=== PATIENT | male | born 1940 | race Caucasian/White ===

== ENCOUNTER 2016-10-15 10:12 | Inpatient (IN) | payer OTHER ==
[2016-10-15 11:27] VITALS: BMI 23.2
[2016-10-15] MEDS ORDERED: VISTARIL INJ IM PRN (12:16)
[2016-10-15] MEDS ORDERED: NITROSTAT SL PRN (12:16)
[2016-10-15] MEDS ORDERED: ATROPINE SULFATE PFS IVP PRN (12:16)
[2016-10-15] MEDS ORDERED: MORPHINE 4 MG/ML SYRINGE IVP PRN (12:16)
[2016-10-15] MEDS ORDERED: TYLENOL PO PRN (12:16)
[2016-10-15 12:59] LABS: BASOPHILS % (AUTO) 0.6 % (0.0-3.0); EOSINOPHILS # (AUTO) 0.1 K/ul (0.0-0.7); EOSINOPHILS % (AUTO) 2.5 % (0.0-7.0); HEMATOCRIT 35.3 % (42.0-52.0); HEMOGLOBIN 12.9 g/dl (14.0-18.0); IMMATURE GRANULOCYTE % (AUTO) 0.2 % (0.0-5.0); LYMPHOCYTES # (AUTO) 2.2 K/uL (0.60-3.4); LYMPHOCYTES % (AUTO) 46.3 (10.0-50.0); MEAN CORPUSCULAR HEMOGLOBIN 32.3 pg (27.0-31.0); MEAN CORPUSCULAR HGB CONC 36.5 (31.8-35.4); MEAN CORPUSCULAR VOLUME 88.5 fl (80.0-94.0); MONOCYTES # (AUTO) 0.6 K/uL (0.4-2.0); MONOCYTES % (AUTO) 12.2 (0-10); NEUTROPHILS # (AUTO) 1.9 K/ul (2.0-6.9); NEUTROPHILS % (AUTO) 38.2; PLATELET COUNT 229 10^3/uL (140-440); RED BLOOD COUNT 3.99 10^6/ul (4.70-6.10); WHITE BLOOD COUNT 4.84 K/ul (4.2-10.2)
[2016-10-15 13:34] LABS: ALANINE AMINOTRANSFERASE 25 U/L (12-78); ALBUMIN 3.9 g/dL (3.4-5.0); ALBUMIN/GLOBULIN RATIO 1.56; ALKALINE PHOSPHATASE 59 U/L (56-119); ANION GAP 10.9; ASPARTATE AMINO TRANSFERASE 26 U/L (15-37); BILIRUBIN,TOTAL 0.82 mg/dL (0.00-1.20); BLOOD UREA NITROGEN 9 mg/dL (7-18); BUN/CREATININE RATIO 10.71; CALCIUM 8.9 mg/dL (8.2-10.2); CARBON DIOXIDE 28 mmol/L (23-31); CHLORIDE 102 mmol/L (98-107); CREATINE KINASE 82 U/L; CREATININE 0.84 mg/dL (0.60-1.10); GLUCOSE 83 mg/dL (82-115); MYOGLOBIN 55 ng/ml; POTASSIUM 3.9 mmol/L (3.5-5.1); SODIUM 137 mmol/L (136-145); TOTAL PROTEIN 6.4 g/dL (5.8-8.1)
[2016-10-15 14:52] LABS: ADD URINE MICROSCOPIC NO; BILIRUBIN,URINE Negative (NEGATIVE); KETONES,URINE Negative (NEGATIVE); LEUKOCYTE ESTERASE ,URINE Negative (NEGATIVE); NITRITE,URINE Negative (NEGATIVE); PROTEIN,URINE Negative (NEGATIVE); URINE, BLOOD Negative (NEGATIVE)
--- NOTE | 2016-10-15 15:47 | DI ---
EXAM: Chest one view, frontal view only. HISTORY: Shortness of breath. COMPARISON: 02/26/2016. FINDINGS: The heart size is normal. There is no vascular congestion. Mild peribronchial thickenin g is a chronic finding. No consolidation, pleural effusion or pneumothorax identified.. A few line ar opacities are seen in the lateral left lung base which are new. Clips seen in the right upper ab domen. No acute osseous abnormality identified. IMPRESSION: Mild left basilar subsegmental atelectasis.
--- NOTE | 2016-10-15 15:52 | US ---
EXAM: ULTRASOUND CAROTID DUPLEX, BILATERAL HISTORY: Dizziness, fatigue and weakness FINDINGS: Wheat-scale ultrasound, color Doppler and spectral analysis was performed. Velocities are in meters per second. By wheat scale and color Doppler imaging. There were small areas of scattered heterogeneous atherosc lerotic plaque estimated at much less than 50% vessel diameter. RIGHT: External carotid artery peak systolic velocity: 0.9 Common carotid artery peak systolic velocity/end diastolic velocity: 0.9/0.1 Internal carotid artery peak systolic velocity: 1.2 ICA/CCA peak systolic velocity ratio: 1.4 ICA end diastolic velocity: 0.3 LEFT: External carotid artery peak systolic velocity: 0.8 Common carotid artery peak systolic velocity/end diastolic velocity: 1.1/0.2 Internal carotid artery peak systolic velocity: 1.1 ICA/CCA peak systolic velocity ratio: 1.0 ICA end diastolic velocity: 0.3 The right vertebral artery was not seen. The left vertebral artery was normally antegrade. IMPRESSION: 1. By wheat scale and color Doppler imaging. There were small areas of scattered heterogeneous athe rosclerotic plaque estimated at much less than 50% vessel diameter. 2. Internal carotid artery peak systolic velocities and ICA/CCA peak systolic velocity ratios indic ate no hemodynamically significant stenosis bilaterally. 3. Right vertebral artery is not seen which may be secondary to technical difficulty, small vessel c aliber or conceivably occlusion. Left vertebral artery was normally antegrade.
[2016-10-15] MEDS: PROTONIX PO SCH (16:48)
--- NOTE | 2016-10-15 16:55 | MRI ---
EXAM: MRI brain without and with IV contrast. DATE: 10/15/2016. HISTORY: Fatigue. TECHNIQUE: Sagittal T1W pre and postcontrast, axial T2W, axial FLAIR, axial T1W pre and postcontras t, axial DWI, coronal T1W postcontrast, and coronal T2W GRE sequences of the brain were obtained [facility] 1.2 Kirstin magnet. CONTRAST: Omniscan - 16 ml IV. COMPARISON: CT head 29 February 2016. MRI brain 07 February 2016. FINDINGS: The lateral ventricles, temporal tips, and third ventricle appear disproportionally large . The third ventricle measures 13 mm transverse dimension. Transverse dimension across both latera l ventricles is 4.6 cm. Sylvian fissures and most frontal lobe and parietal sulci are mildly enlarg ed. most temporal lobe and occipital lobe sulci are normal or slightly prominent. No midline shift , mass effect or abnormal extra-axial fluid collection is apparent. No acute infarct, hemorrhage or enhancing neoplasm is identified. A few 1 - 2 mm, T2W/FLAIR bright foci are scattered in the subco rtical white matter bilaterally. A 3 mm diameter, FLAIR bright focus with questionable minimal cent ral enhancement is noted in the right frontal kwok radiata on axial image #15. The mena - white m atter differentiation is normal. Small areas of T2W GRE dark signal within each basal ganglia are b enign. No migration or diverticulation abnormality is identified. The amygdala, hippocampus, and p arahippocampal gyri are similar bilaterally. The 7th/8th cranial nerve complexes, cerebellopontine a ngles, brainstem, and visible cervical spinal cord are normal. There is no cerebellar tonsillar ect opia. The pituitary gland is small in size, with CSF filling most of the pituitary fossa. Corpus c allosum is normal in size, but the body is mildly bowed upward due to ventricular prominence. Left vertebral artery is dominant. Right vertebral artery is diminutive in size and poorly visualized. Flow voids are present in the remaining major intracranial arteries. No aneurysm or AVM is detected . No definitive dural venous sinus thrombosis is evident. No orbit abnormality is identified. A f ew inferior mastoid air cells bilaterally have T2W bright, T1W intermediate signal without abnormal enhancement. There is no acute sinusitis. No neck mass or lymphadenopathy is detected. No calvari al neoplasm or acute fracture is evident. IMPRESSIONS: 1. A right frontal kwok radiata 3 mm FLAIR bright focus with questionable minimal enhancement. S hort interval follow-up (2 months) may be helpful to exclude a growing lesion. 2. Central > peripheral cerebral atrophy. In the right clinical setting, chronic hydrocephalus moses ht be considered. 3. No acute infarct or acute hemorrhage. 4. Minor, benign basal ganglia mineral deposition. 5. Small pituitary gland - nearly empty sella. 6. Minor bilateral mastoid disease (chronic).
[2016-10-15] MEDS ORDERED: PROTONIX PO SCH (17:00)
[2016-10-15 20:36] LABS: CREATINE KINASE 77 U/L; MYOGLOBIN 53 ng/ml
[2016-10-15] MEDS ORDERED: NAMENDA PO SCH (21:00)
[2016-10-16] MEDS: PROTONIX PO SCH ×2 (05:47→16:52)
[2016-10-16] MEDS: FERROUS SULFATE PO SCH (08:28)
[2016-10-16] MEDS: CALCIUM 500 + VIT D 200 MG TABLET PO SCH (08:30)
[2016-10-16] MEDS: ZOCOR PO SCH (08:30)
[2016-10-16] MEDS: ARICEPT PO SCH (08:30)
[2016-10-16] MEDS: MULTIVITAMIN PO SCH (08:30)
[2016-10-16] MEDS: ASPIRIN EC PO SCH (08:31)
[2016-10-16] MEDS: NAMENDA PO SCH ×2 (08:56→20:31)
[2016-10-16] MEDS ORDERED: LEXAPRO PO SCH ×2 (09:00)
[2016-10-16] MEDS ORDERED: FERROUS SULFATE PO SCH (09:00)
[2016-10-16] MEDS ORDERED: ARICEPT PO SCH (09:00)
[2016-10-16] MEDS ORDERED: ZOCOR PO SCH (09:00)
[2016-10-16] MEDS ORDERED: CALCIUM 500 + VIT D 200 MG TABLET PO SCH (09:00)
[2016-10-16] MEDS ORDERED: NAMENDA PO SCH (09:00)
[2016-10-16] MEDS ORDERED: NON-FORMULARY MEDICATION (Simvastatin [Zocor] 20 MG) PO SCH ×22 (09:00)
[2016-10-16] MEDS ORDERED: MULTIVITAMIN PO SCH (09:00)
[2016-10-16] MEDS ORDERED: FERROUS SULFATE 65 MG PO SCH (09:00)
[2016-10-16] MEDS ORDERED: NON-FORMULARY MEDICATION (Escitalopram Oxalate [Lexapro] 5 MG) PO SCH (09:00)
[2016-10-17 05:36] VITALS: BP 106/65; TEMP 97
[2016-10-17] MEDS: PROTONIX PO SCH (05:36)
[2016-10-17] MEDS: CALCIUM 500 + VIT D 200 MG TABLET PO SCH (08:38)
[2016-10-17] MEDS: MULTIVITAMIN PO SCH (08:38)
[2016-10-17] MEDS: FERROUS SULFATE PO SCH (08:38)
[2016-10-17] MEDS: ASPIRIN EC PO SCH (08:39)
[2016-10-17] MEDS: ARICEPT PO SCH (08:39)
[2016-10-17] MEDS: ZOCOR PO SCH (08:39)
[2016-10-17] MEDS: NAMENDA PO SCH (08:39)
[2016-10-17] MEDS ORDERED: MEGACE PO SCH (09:00)
[2016-10-17] MEDS ORDERED: LEXAPRO PO SCH (09:00)
--- NOTE | 2016-10-17 12:24 | CM.DICTOOL ---
ADMISSION: 10/15/16 10:12 DISCHARGE: October 17, 2016 DATE OF SERVICE: 10/17/16 FINAL DIAGNOSIS Shortness of breath Fatigue Anemia COPD Alzheimer's Dementia r/o NPH Mild Aortic Stenosis per echocardiogram Hiatal Hernia GERD Depression Osteoarthritis DJD Spine Dyslipidemia Cholecystectomy LAST VITALS Temp Pulse Resp BP Pulse Ox 97.0 F L 57 L 16 106/65 96 10/17/16 05:35 10/17/16 05:35 10/17/16 05:35 10/17/16 05:35 10/17/16 05:35 ACTIVE HOME MEDICATIONS Calcium/Vitamin D (Calcium 500 + Vit D 200 Mg Tablet) 1 each PO DAILY [facility] Last Admin: 10/17/16 08:38 Dose: 1 each Donepezil HCl (Aricept) 10 mg PO DAILY [facility] Last Admin: 10/17/16 08:39 Dose: 10 mg Escitalopram Oxalate (Lexapro) 10 mg PO DAILY [facility] (dose increased) Last Admin: 10/17/16 08:38 Dose: 10 mg Ferrous Sulfate (Ferrous Sulfate) 324 mg PO DAILY [facility] Last Admin: 10/17/16 08:38 Dose: 324 mg Memantine (Namenda) 10 mg PO BID [facility] (dose increased) Last Admin: 10/17/16 08:39 Dose: 10 mg Multivitamins (Multivitamin) 1 cap PO DAILY [facility] Last Admin: 10/17/16 08:38 Dose: 1 cap Pantoprazole Sodium (Protonix) 40 mg PO BIDAC [facility] Last Admin: 10/17/16 05:36 Dose: 40 mg Simvastatin (Zocor) 20 mg PO DAILY [facility] Last Admin: 10/17/16 08:39 Dose: 20 mg ALLERGIES Penicillins Adverse Reaction (Verified 02/26/16 10:51) NEW PRESCRIPTIONS: Megace 400 mg daily Lexapro 10 mg daily Namenda 10 mg BID SMOKING: Not Applicable DISEASE SPECIFIC EDUCATION: Alzheimer's Dementia Medications Appetite Stimulant Appointment LAB REVIEW: 10/15/16 12:45 10/15/16 12:45 PLAN: Discharge home Diet: Heart Healthy Activity: Gradually resume as tolerated. Use cane or walker for additional safety Medication change: 1. Increase Lexapro to 10 mg daily (new prescription given) Appointments: October 21 at 9:[address] Pearson December 29 at [address] Jose Verdin in [place], [place]. A hospital CD with the MRI from 2015 and 2016 was given to the . Mr. Ott is alert to person, place and surroundings. He is forgetful at times. He is able to transfer with minimal assistance of one staff member. He is able to feed himself, toilet and ambulate with use of a walker or cane in the hallway. His skin is in good condition and free of open areas or rashes. Meal intakes are fair at 50-75%. Mr. Ott is noted to be a full code. Mayito Pearson MD
--- NOTE | 2016-10-17 12:38 | PCM.PROG ---
Attending Provider: ATTENDING PROVIDER: Dr. VICKIE AWAN DATE OF SERVICE: 10/17/16 SUBJECTIVE: This 76 year old WHITE/ M was hospitalized 10/15/16. The patient is hospitalized with fatigue, shortness of breath and worsening of dementia. The is present in the room. REVIEW OF SYSTEMS: CONSTITUTIONAL: No night sweats. No fatigue, malaise, lethargy. No fever or chills. HEENT: Eyes: No visual changes. No eye pain. No eye discharge. ENT: No runny nose. No epistaxis. No sinus pain. No odynophagia. No congestion. RESPIRATORY: No cough, no congestion. No hemoptysis. No PND, no orthopnea. CARDIOVASCULAR: No angina symptoms. No CHF symptoms. No atypical chest pain for CAD. No palpitations. No shortness of breath. GASTROINTESTINAL: No abdominal pain. No nausea or vomiting. No diarrhea or constipation. No hematemesis. No hematochezia. GENITOURINARY: No urgency. No frequency. No dysuria. No hematuria. No obstructive symptoms. No discharge. No pain. No significant abnormal bleeding. MUSCULOSKELETAL: No musculoskeletal pain; no joint swelling. NEUROLOGICAL: Awake, alert, oriented to time, place and person. No headache. No neck pain. No syncope. No seizures. No dizziness. PSYCHIATRIC: Not anxious. No depression. No suicidal thoughts. No homicidal thoughts. SKIN: No rash. No lesions. No wounds. ENDOCRINE: No unexplained weight loss. No weight gain. HEMATOLOGIC/LYMPHATIC: No anemia. No purpura. No petechiae. No prolonged or excessive bleeding. No palpable lymph nodes. PHYSICAL EXAMINATION: GENERAL: The patient is awake, alert and seems oriented to person and place sitting in the chair in no distress. VITAL SIGNS: Temperature 97.0 F, Pulse 57, Respiratory Rate 16, BP 106/65, Pulse Ox 96% HEENT: Head normocephalic, atraumatic. Eyes: Extraocular muscles are intact. Pupils are equal, round and reactive to light and accommodation. Ears: No lesions. Nose appeared normal. Throat: No exudate or erythema. NECK: Supple. No JVD, no carotid bruit. No lymphadenopathy or thyromegaly. LUNGS: Clear to auscultation. Percussion note normal. Chest symmetrical. HEART: S1, S2, no S3. Grade I/ systolic ejection murmur. Mild aortic stenosis. No cyanosis or clubbing. No ascites. Pulses: Dorsalis pedis and posterior tibial pulses +1 to +2 both sides. ABDOMEN: Soft. Non-tender. Bowel sounds active. No CVA tenderness. No mass felt. EXTREMITIES: No edema. Full range of motion of all extremities, equal. NEUROLOGIC: No focal deficit. Cranial nerves II through XII are grossly intact. No headache, no double vision or headache. SKIN: Not dry. Intact. Turgor-normal. LYMPHATIC: No palpable lymph nodes/no lymphedema. MUSCULOSKELETAL: Normal joints with no swelling. Muscle tone is normal. LAB REVIEW: 10/15/16 12:45 10/15/16 12:45 ASSESSMENT: 1. Dementia 2. Possibility of normal pressure hydrocephalus but there are no symptoms of it like a headache, visual problems, incontinence of urine or feces, et cetera. 3. Mild aortic stenosis. 4. Depression. OF NOTE: The patient's sister and father had Alzheimer's dementia. According to the family, the patient has done well with Namenda and Aricept. The Namenda has been increased. Lexapro has been increased to 10 mg today. The has agreed along with the patient to go for neurological consultation with Dr. Jose Verdin. The daughter is agreeable. PLAN: 1. Megace to help with appetite. Plan and coordination of the patient's care discussed in the presence of Motion Picture Actor and nurse. CONDITION: Stable SCRIBED BY: PEG [employer] Irrigator Overhead scribed while in presence of service performed by Dr. VICKIE AWAN on 10/17/16 ([id number])
--- NOTE | 2016-10-20 08:56 | ECHO2D ---
Date of Exam: 10/16/16 Ordering Physician: VICKIE AWAN Reason for Echo: FATIGUE, SOB, SYSTOLIC MURMUR Auscultation: S1, S2 Murmurs: SYSTOLIC M-Mode Normal Adult Results LV Dimensions Normal Adult Results AoV Opening excursions >1.6 1.4 LVEDD-base- 3.5-5.8 5.1 Ao root dimensions 2.0-3.7 3.4 LVESD-base- 3.1-4.6 L. Atrium dimensions 1.9-3.8 5.1 Post. Wall thickness 0.8-1.1 1.3 IV septum (thickness) 0.7-1.2 1.2 Post. Wall excursion 0.72-1.3 NORMAL Septal motion NORMAL Systolic motion R. Ventricular cavity 1.5-2.0 NORMAL LVEF 60% 51% Paradoxical septal wall motion NORMAL 2-D : ENLARGED LEFT ATRIAL CAVITY--CALCIFIC AORTIC VALVES, NORMAL LEFT VENTRICULAR CONTRACTILITY--NO EFFUSION, NO THROMBUS M-MODE: MV: NORMAL AV: CALCIFIC AORTIC STENOSIS NOTED TV: NORMAL PV: NORMAL CHAMBER SIZE: ENLARGED LEFT ATRIAL CAVITY WALL MOTION: NORMAL PERICARDIUM: NORMAL INTERPRETATION: 1. LEFT VENTRICULAR HYPERTROPHY WITH ENLARGED LEFT ATRIAL CAVITY (BORDERLINE) 2. MILD CALCIFIC AORTIC STENOSIS--VALVE AREA 2.0 CM2 3. NORMAL LEFT VENTRICULAR CONTRACTILITY MTDD
--- NOTE | 2016-10-20 13:59 | PN ---
DATE OF SERVICE: 10/16/16 SUBJECTIVE: The patient is a 76 year old white male hospitalized with fatigue, shortness of breath and worsening of Dementia. So far the patients workup is negative. REVIEW OF SYSTEMS: CONSTITUTIONAL: No night sweats. Fatigue. No fever or chills. HEENT: Eyes: No visual changes. No eye pain. No eye discharge. ENT: No runny nose. No epistaxis. No sinus pain. No sore throat. No odynophagia. No congestion. RESPIRATORY: No cough, no congestion. No hemoptysis. CARDIOVASCULAR: No angina symptoms. No CHF symptoms. No atypical chest pain for CAD. No palpitations. No shortness of breath. GASTROINTESTINAL: No abdominal pain. No nausea or vomiting. No diarrhea or constipation. No hematemesis. No hematochezia. GENITOURINARY: No urgency. No frequency. No dysuria. No hematuria. No obstructive symptoms. No discharge. No pain. No significant abnormal bleeding. MUSCULOSKELETAL: No musculoskeletal pain; no joint swelling. NEUROLOGICAL: No headache. No neck pain. No syncope. No seizures. No dizziness. Confusion. PSYCHIATRIC: Not anxious. No depression. No suicidal thoughts. No homicidal thoughts. SKIN: No rash. No lesions. No wounds. ENDOCRINE: No unexplained weight loss. No weight gain. HEMATOLOGIC/LYMPHATIC: No anemia. No purpura. No petechiae. No prolonged or excessive bleeding. No palpable lymph nodes. PHYSICAL EXAMINATION: GENERAL: The patient is oriented to person. VITAL SIGNS: Temperature 97.8, pulse 60, respiratory rate 15, blood pressure 118/69 and pulse ox 96%. HEENT: Head normocephalic, atraumatic. Eyes: Extraocular muscles are intact. Pupils are equal, round and reactive to light and accommodation. Ears: No lesions. Nose appeared normal. Throat: No exudate or erythema. NECK: Supple. No JVD, no carotid bruit. No lymphadenopathy or thyromegaly. LUNGS:Decreased breath sounds but clear to auscultation. Percussion note normal. Chest symmetrical. HEART: S1, S2, no S3. No murmurs. No cyanosis or clubbing. No ascites. Pulses: Dorsalis pedis and posterior tibial pulses +1 to +2 both sides. ABDOMEN: Soft. Nontender. Bowel sounds active. No CVA tenderness. No mass felt. EXTREMITIES: No edema. Full range of motion of all extremities, equal. NEUROLOGIC: No focal deficit. Cranial nerves II through XII are grossly intact. No headache, no double vision or headache. SKIN: Not dry. Intact. Turgor - normal. LYMPHATIC: No palpable lymph nodes/no lymphedema. MUSCULOSKELETAL: Normal joints with no swelling. Muscle tone is normal. LABS: Hgb 12.9, hct 35, WBC 4,800 normal differential, creatinine 0.8, BUN 9, potassium 3.9, T4 TSH normal. ASSESSMENT: 1. Shortness of breath likely from inactivity and sedentary lifestyle 2. Dementia/ Alzheimer's for last several years 3. Fatigue combination of aging processes and sedentary lifestyle with dementia 4. Mild depression No suicidal or homicidal ideas PLAN: 1. The patient education carried wiht the . The patient's understand that he has Alzheimer's disease. The patient's 's father had Alzheimer's disease and I treated him so the patient's knows that Alzheimer's disease is but she hard time accepting the fact that the is going through the same thing. 2. Continue Lexapro, Aricept, Namenda; Namenda dose has been increase, Protonix and Simvastatin as before 3. The patient's MRI was done and I will review the results. 4. Echo is still pending CONDITION: Stable. TIME SPENT: More than 30 minutes. ADDENDUM: MRI report discussed with the patient, and also on the phone with Daughter ; Marci. Again I explained to them that the MRI done in February in 2015 looks the same as MRI done yesterday 10/15/16. The patient has more central atrophy peripheral cerebral. There is also focus 3mm on right frontal kwok radiata and no acute infarct or hemorrhage was note. Again possibility of hydrocephalus was raised all of them that is the patient, the and Marci; the daughter advised to have neurological consultation. This time daughter has agreed, the is going to think about it and the patient doesn't know what he wants to do about it. The patient has history of forgetfulness for last couple of year especially recent events. According to the the patient's pain problem is just fatigue and tired feeling and he sleeps a lot. I explained to them that could be depression along with aging process and sedentary lifestyle he has for past several months. I explained to Marci; the daughter the same thing about his tired feeling. I told them that my concern is if he has hydrocephalus that needs to be checked out by neurologist. The past the patient and the have both declined further neurological evaluation. The patient's sister and father had Alzheimer's disease. Again the patient doesn't have any symptoms of hydrocephalus like headache or impaired vision. There is cognitive difficulties. There is no incontinence or urine of feces. Coordination is acceptable. It is to be noted that both and the patient and the have their own views about all the medication conditions that you discuss with them. 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 In fact she gave me the number in the morning and insisted when I was making rounds in the morning in the patient's room to talk to her but I said that I would talk to her after I get all the information from all the reports of all the tests. Plan and coordination of the patient's care discussed in the presence of nurse. GIGI
--- NOTE | 2016-10-20 15:22 | DS ---
DATE OF SERVICE: 10/17/16 FINAL DIAGNOSIS: 1. Shortness of breath 2. Fatigue 3. Anemia 4. COPD 5. Alzheimer's Dementia rule out NPH 6. Mild aortic stenosis per echocardiogram 7. Hiatal Hernia 8. GERD 9. Depression 10.Osteoarthritis 11.DJD Spine 12.Dyslipidemia 13.Cholecystectomy LAST VITALS: Temperature 97, pulse 57, respiratory rate 16, blood pressure 106/65 and pulse ox 96%. DISCHARGE INSTRUCTIONS: Discharge home. Increase Lexapro to 10mg daily. October 21 at 9:45am with Dr. Pearson. December [address] Jose Verdin in [place], [place]. A hospital CD with the MRI from 2015 and 2016 was given to the . MEDICATIONS AT DISCHARGE: Calcium 500+Vit D 200mg one each PO daily Aricept 10mg PO daily Lexapro 10mg PO daily Ferrous Sulfate 324mg PO daily Namenda 10mg PO twice a day Multivitamin 1 PO daily Protonix 40mg PO twice a day Zocor 20mg PO daily ALLERGIES: Penicillin NEW PRESCRIPTIONS: Megace 400mg daily Lexapro 10mg daily Namenda 10mg twice a day DIET INSTRUCTIONS: Heart Healthy ACTIVITY: Gradually resume as tolerated. Use cane or walker for additional safety SMOKING: Never Smoker DISEASE SPECIFIC EDUCATION: Alzheimer's Dementia Medications Appetite Stimulant Appointment HOSPITAL COURSE: The patient is a 76 year old white male hospitalized with fatigue, shortness of breath and worsening of dementia. The patient's main problem was getting tired. He was seen by the family and he sleeps all hours in the day and night for past several months. The patient denies of any headache, no urinary or fecal incontinence. Coordination has been the same as before, not great but acceptable. The patient's MRI showed more central atrophy then peripheral. Possibility of normal pressure hydrocephalus was raised. The patient has similar findings in 2016. The patient's family and the patient himself declined to have any further workup or referral to neurologist for it. This time they have agreed. The patient's sister and father both had history of Alzheimer's. The patient has been on Namenda and Aricept. The Namenda dose has been increased to 10mg twice a day and Lexapro dose has been increased to 10mg a daily from 5mg. To me since that the patient has depressed along with dementia. His fatigue is the result of dementia along with his inactivity and sedentary lifestyle with aging process. His echocardiogram showed mild aortic stenosis otherwise normal LV contractility. He doesn't have any symptoms of congestive heart failure and no arrhythmias. The patient's T4 and TSH as acceptable, Creatinine 0.8, BUN 9, potassium 3.9. The patient's condition is stable. The family has been made aware of side effects of all the medications he is taken. Also has been discussed with Alzheimer's disease. The patient's 's father had Alzheimer's and she is very much aware to her it is more like Alzheimer's but she has reluctantly agreed to have neurological consultation to rule out any normal pressure hydrocephalus. CONDITION: Stable. TIME SPENT: More than 60 minutes. CITLALYD
--- NOTE | 2016-10-20 15:23 | PN ---
10/15/16: Level 5 10/16/16: Intermediate 10/17/16: D as in discharge MTDD
--- NOTE | 2016-10-21 09:09 | HP ---
DATE OF SERVICE: 10/15/16 REASON FOR HOSPITALIZATION: Tired/fatigue/shortness of breath. HISTORY OF PRESENT ILLNESS: This is a 76-year-old male who presented to the office with increasing confusion , tiredness, fatigue and shortness of breath. The patient has been sleeping most of the time. REVIEW OF SYSTEMS: CONSTITUTIONAL: No fever, no fatigue. HEENT: Sinus drainage. No sore throat. RESPIRATORY: Cough. No hemotpysis. CARDIOVASCULAR: Shortness of breath. No atypical chest pain for coronary artery disease. No angina, CHF symptoms, palpitations. GASTROINTESTINAL: No melena or abdominal pain. No GERD. GENITOURINARY: No hematuria, no prostatism, no polyuria. METAL BURNISHER: No blackout, no dizziness, no headache, no double vision. MUSCULOSKELETAL: Osteoarthritis pain. No joint swelling. ENDOCRINE: No weight loss, no weight gain. SKIN: Not dry, no rash. PSYCHIATRIC: Confusion. No tremors. No fecal or urinary incontinence. Not anxious, no depression, no suicidal thoughts, no homicidal thoughts. PAST MEDICAL HISTORY: 1. Dementia 2. Alzheimer's 3. Mild depression 4. DJD spine 5. GERD 6. Large hiatal hernia 7. COPD 8. PVC 9. Anemia 10. History of rheumatic fever SOCIAL HISTORY: ; nonsmoker; no alcohol use. No ilicit drug use. Five children, four adopted. One biological daughter who is 42 years of age. The patient is retired. No FAMILY HISTORY: Father , NE, diabetes mellitus; Mother NE; Brother deceassed NE ; Sisters (2) - one , Alzheimer's; one alive at 79 with Alzheimer's Dementia. MEDICATIONS: (HOME) 1. Multivitamin one cap p.o. daily 2. Simvastatin 20 mg p.o. daily 3. Ca Carbonate/Vitamin D3/Vitamin K one each p.o. daily 4. Donepezil (Aricept) 10 mg p.o. daily 5. Escitalopram (Lexapro) 5 mg p.o. daily 6. Memantine (Namenda) 10 mg p.o. bedtime 7. Ferrous Sulfate 65 mg p.o. daily 8. Pantoprazole (Protonix) 40 mg p.o. b.i.d. a.c. ALLERGIES: PENICILLIN PHYSICAL EXAMINATION: V/S: Pulse 63, BP 110/60, temperature 98.1, 02 sat 98%. Height 6'2", BMI 23.1, weight 180.2. GENERAL APPEARANCE: Oriented to person, not to date, year or time. HEENT: Normal. NECK: No JVP, no bruits. RESPIRATORY: Lungs are clear. CARDIOVASCULAR: S1, S2, no S3, no murmurs. No cyanosis, clubbing. No ascites. GI/ABDOMEN: No tenderness. Bowel sounds are active. EXTREMITIES: No edema, pulses +1, equal. METAL BURNISHER: Deep tendon reflexes, sensory, motor and gait all normal. RECTAL/PROSTATE: Prostate 1-16 (0.2), colonoscopy 01/21 Dr. Jacobs - endoscopy. Refused colocare. ASSESSMENT: 1. FATIGUE/TIRED 2. WORSENING OF DEMENTIA 3. SHORTNESS OF BREATH 4. ALZHEIMER'S DEMENTIA 5. MILD DEPRESSION 6. DJD SPINE 7. GERD 8. LARGE HIATAL HERNIA 9. COPD 10. PVC 11. ANEMIA 12. FAMILY HISTORY OF ALZHEIMER'S DISEASE 13. STATUS POST CHOLECYSTECTOMY 14. HISTORY OF RHEUMATIC FEVER PLAN: 1. Admit regular 2. Routine telemetry orders 3. Continue all home medications 4. MRI of the brain with contrast 5. Carotid scan 6. Echocardiogram 7. B12 level 8. T4, TSH 9. Continue all medications. TIME SPENT: More than 70 minutes. [facility]
== END 2016-10-17 12:41 | disposition home or self-care (01) | DRG 948 ==
LOC: SCU 10:12
PROVIDERS: ADMIT Internal Medicine; ATTEND Internal Medicine
DX: R53.83 Other fatigue (principal); G91.2 (Idiopathic) normal pressure hydrocephalus; G30.1 Alzheimer's disease with late onset; R06.02 Shortness of breath; F02.80 Dementia in other diseases classified elsewhere, unspecified severity, without behavioral disturbance, psychotic disturbance, mood disturbance, and anxiety; I35.0 Nonrheumatic aortic (valve) stenosis; I51.7 Cardiomegaly; J44.9 Chronic obstructive pulmonary disease, unspecified; K21.9 Gastro-esophageal reflux disease without esophagitis; K44.9 Diaphragmatic hernia without obstruction or gangrene; D64.9 Anemia, unspecified; E78.5 Hyperlipidemia, unspecified; F32.9 Major depressive disorder, single episode, unspecified; M19.90 Unspecified osteoarthritis, unspecified site; M47.9 Spondylosis, unspecified; R01.1 Cardiac murmur, unspecified; Z72.89 Other problems related to lifestyle; Z82.49 Family history of ischemic heart disease and other diseases of the circulatory system; Z82.0 Family history of epilepsy and other diseases of the nervous system; Z79.899 Other long term (current) drug therapy
CPT/HCPCS: 36415; 80053; 81001; 82550; 82607; 83874; 84439; 84443; 84484; 85025; 93005; 93010

== ENCOUNTER 2017-01-20 10:21 | Inpatient (IN) ==
[2017-01-20 11:33] VITALS: BMI 21.9
[2017-01-20 11:33] LABS: BASOPHILS % (AUTO) 0.4 % (0.0-3.0); EOSINOPHILS # (AUTO) 0.2 K/ul (0.0-0.7); EOSINOPHILS % (AUTO) 3.7 % (0.0-7.0); HEMATOCRIT 31.2 % (42.0-52.0); HEMOGLOBIN 11.3 g/dl (14.0-18.0); IMMATURE GRANULOCYTE % (AUTO) 0.2 % (0.0-5.0); LYMPHOCYTES # (AUTO) 1.9 K/uL (0.60-3.4); LYMPHOCYTES % (AUTO) 40.9 (10.0-50.0); MEAN CORPUSCULAR HGB CONC 36.2 (31.8-35.4); MEAN CORPUSCULAR VOLUME 85.7 fl (80.0-94.0); MONOCYTES # (AUTO) 0.7 K/uL (0.4-2.0); MONOCYTES % (AUTO) 15.7 (0-10); NEUTROPHILS # (AUTO) 1.8 K/ul (2.0-6.9); NEUTROPHILS % (AUTO) 39.1; PLATELET COUNT 205 10^3/uL (140-440); RED BLOOD COUNT 3.64 10^6/ul (4.70-6.10); WHITE BLOOD COUNT 4.65 K/ul (4.2-10.2)
[2017-01-20 12:15] LABS: ALBUMIN 3.7 g/dL (3.4-5.0); ALBUMIN/GLOBULIN RATIO 1.37; ANION GAP 10.8; BILIRUBIN,TOTAL 0.88 mg/dL (0.00-1.20); BUN/CREATININE RATIO 11.68; CALCIUM 8.8 mg/dL (8.2-10.2); CREATININE 0.77 mg/dL (0.60-1.10); POTASSIUM 3.8 mmol/L (3.5-5.1); TOTAL PROTEIN 6.4 g/dL (5.8-8.1)
[2017-01-20 12:16] LABS: CREATINE KINASE MB 1.3 ng/ml (0.0-3.6)
[2017-01-20] MEDS: DEXTROSE 5%-1/2NS IV SOLUTION 1,000 ML IV SCH ×2 (13:15→23:12)
[2017-01-20 14:55] LABS: BILIRUBIN,URINE Negative (NEGATIVE); KETONES,URINE Negative (NEGATIVE); LEUKOCYTE ESTERASE ,URINE Negative (NEGATIVE); NITRITE,URINE Negative (NEGATIVE); PH,URINE 7.5 (5-9); PROTEIN,URINE Negative (NEGATIVE); URINE, BLOOD Negative (NEGATIVE)
[2017-01-20 14:57] LABS: ADD URINE MICROSCOPIC NO
--- NOTE | 2017-01-20 15:40 | DI ---
EXAM: Single frontal view of the chest HISTORY: Fatigue and weight loss. COMPARISON: Chest x-ray 10/15/[address] chest 02/26/2016 FINDINGS: Cardiomediastinal silhouette is mildly enlarged. The lung volumes are diminished. There is no pneumothorax or effusion. There is no consolidation, nodule or mass. The osseous structures are unremarkable. IMPRESSION: Lung volumes are diminished with no acute cardiopulmonary process and mild enlargement of the cardiomediastinal silhouette.
[2017-01-20] MEDS: PROTONIX PO SCH (17:08)
[2017-01-20] MEDS: NAMENDA PO SCH (20:24)
[2017-01-21 05:22] LABS: BASOPHILS % (AUTO) 0.8 % (0.0-3.0); EOSINOPHILS # (AUTO) 0.2 K/ul (0.0-0.7); HEMOGLOBIN 11.3 g/dl (14.0-18.0); IMMATURE GRANULOCYTE % (AUTO) 0.2 % (0.0-5.0); LYMPHOCYTES # (AUTO) 2.1 K/uL (0.60-3.4); LYMPHOCYTES % (AUTO) 44.7 (10.0-50.0); MEAN CORPUSCULAR HEMOGLOBIN 30.9 pg (27.0-31.0); MEAN CORPUSCULAR HGB CONC 36.5 (31.8-35.4); MEAN CORPUSCULAR VOLUME 84.7 fl (80.0-94.0); MONOCYTES # (AUTO) 0.7 K/uL (0.4-2.0); MONOCYTES % (AUTO) 15.2 (0-10); NEUTROPHILS # (AUTO) 1.7 K/ul (2.0-6.9); NEUTROPHILS % (AUTO) 35.1; PLATELET COUNT 220 10^3/uL (140-440); RED BLOOD COUNT 3.66 10^6/ul (4.70-6.10); WHITE BLOOD COUNT 4.79 K/ul (4.2-10.2)
[2017-01-21 05:30] LABS: ALBUMIN 3.6 g/dL (3.4-5.0); ALBUMIN/GLOBULIN RATIO 1.38; ANION GAP 13.9; BILIRUBIN,TOTAL 0.91 mg/dL (0.00-1.20); BUN/CREATININE RATIO 12.65; CREATININE 0.79 mg/dL (0.60-1.10); POTASSIUM 3.9 mmol/L (3.5-5.1); TOTAL PROTEIN 6.2 g/dL (5.8-8.1)
[2017-01-21] MEDS: PROTONIX PO SCH ×2 (07:47→16:37)
[2017-01-21] MEDS: ARICEPT PO SCH (08:54)
[2017-01-21] MEDS: LEXAPRO PO SCH (08:54)
[2017-01-21] MEDS: NAMENDA PO SCH ×2 (08:54→20:25)
[2017-01-21] MEDS: CALCIUM 500 + VIT D 200 MG TABLET PO SCH (08:55)
[2017-01-21] MEDS: MULTIVITAMIN PO SCH (08:55)
[2017-01-21] MEDS: FERROUS SULFATE PO SCH (08:55)
[2017-01-21] MEDS ORDERED: FERROUS SULFATE 65 MG PO SCH (09:00)
--- NOTE | 2017-01-21 09:11 | PCM.PROG ---
Attending Provider: ATTENDING PROVIDER: Dr. VICKIE AWAN DATE OF SERVICE: 01/21/17 SUBJECTIVE: This 76 year old WHITE/ M was hospitalized 01/20/17. The patient is seen with Oumou, Nurse Practitioner. The patient's is in the room. The patient is lying in bed, is alert, oriented to person. The patient still has a poor appetite. Sodium is slightly improved today. REVIEW OF SYSTEMS: CONSTITUTIONAL: Fatigue, malaise. No night sweats. No fever or chills. HEENT: Eyes: No visual changes. No eye pain. No eye discharge. ENT: No runny nose. No epistaxis. No sinus pain. No odynophagia. No congestion. RESPIRATORY: No cough, no congestion. No hemoptysis. CARDIOVASCULAR: No angina symptoms. No CHF symptoms. No atypical chest pain for CAD. No palpitations. No shortness of breath. GASTROINTESTINAL: Poor appetite. No abdominal pain. No nausea or vomiting. No diarrhea or constipation. No hematemesis. No hematochezia. GENITOURINARY: No urgency. No frequency. No dysuria. No hematuria. No obstructive symptoms. No discharge. No pain. No significant abnormal bleeding. MUSCULOSKELETAL: No musculoskeletal pain; no joint swelling. NEUROLOGICAL: Awake, alert with confusion. No headache. No neck pain. No syncope. No seizures. No dizziness. PSYCHIATRIC: Not anxious. No depression. No suicidal thoughts. No homicidal thoughts. SKIN: No rash. No lesions. No wounds. ENDOCRINE: No unexplained weight loss. No weight gain. HEMATOLOGIC/LYMPHATIC: No anemia. No purpura. No petechiae. No prolonged or excessive bleeding. No palpable lymph nodes. PHYSICAL EXAMINATION: GENERAL: The patient is awake, alert with some confusion, up in chair in no distress. VITAL SIGNS: Temperature 97.8 F, Pulse 68, Respiratory Rate 14, BP 137/69, Pulse Ox 93% HEENT: Head normocephalic, atraumatic. Eyes: Extraocular muscles are intact. Pupils are equal, round and reactive to light and accommodation. Ears: No lesions. Nose appeared normal. Throat: No exudate or erythema. NECK: Supple. No JVD, no carotid bruit. No lymphadenopathy or thyromegaly. LUNGS: Diminished breath sounds bilaterally. Clear to auscultation. Percussion note normal. Chest symmetrical. HEART: S1, S2, no S3. No murmurs. No cyanosis or clubbing. No ascites. Pulses: Dorsalis pedis and posterior tibial pulses +1 to +2 both sides. ABDOMEN: Soft. Non-tender. Bowel sounds active. No CVA tenderness. No mass felt. EXTREMITIES: Trace pedal edema. Full range of motion of all extremities, equal. NEUROLOGIC: No focal deficit. Cranial nerves II through XII are grossly intact. No headache, no double vision or headache. SKIN: Not dry. Intact. Turgor-normal. LYMPHATIC: No palpable lymph nodes/no lymphedema. MUSCULOSKELETAL: Normal joints with no swelling. Muscle tone is normal. LAB REVIEW: 01/21/17 04:57 01/21/17 04:57 01/21/17 04:57: WBC 4.79, RBC 3.66 L, Hgb 11.3 L, Hct 31.0 L, MCV 84.7, MCH 30.9 , MCHC 36.5 H, RDW Coeff of [place] 13.1, Plt Count 220, Immature Gran % (Auto) 0.2 , Neut % (Auto) 35.1, Lymph % (Auto) 44.7, [place] % (Auto) 15.2 H, Eos % (Auto) 4.0, Baso % (Auto) 0.8, Immature Gran # (Auto) 0.0, Neut # 1.7 L, Lymph # 2.1, [place] # 0.7, Eos # 0.2, Baso # 0.0, Sodium 135 L, Potassium 3.9, Chloride 100, Carbon Dioxide 25, Anion Gap 13.9, BUN 10, Creatinine 0.79, Estimated GFR (MDRD ) 95.00, BUN/Creatinine Ratio 12.65, Glucose 104, Calcium 9.0, Total Bilirubin 0.91, AST 25, ALT 27, Alkaline Phosphatase 65, Total Protein 6.2, Albumin 3.6, Globulin 2.6, Albumin/Globulin Ratio 1.38 01/20/17 14:54: Vitamin B12 712 01/20/17 14:35: Urine Color Yellow, Urine Clarity Clear, Urine pH 7.5, Ur Specific [place] 1.015, Urine Protein Negative, Urine Glucose (UA) Negative, Urine Ketones Negative, Urine Blood Negative, Urine Nitrite Negative, Urine Bilirubin Negative, Urine Urobilinogen 1.0, Ur Leukocyte Esterase Negative 01/20/17 11:29: WBC 4.65, RBC 3.64 L, Hgb 11.3 L, Hct 31.2 L, MCV 85.7, MCH 31.0 , MCHC 36.2 H, RDW Coeff of [place] 13.2, Plt Count 205, Immature Gran % (Auto) 0.2 , Neut % (Auto) 39.1, Lymph % (Auto) 40.9, [place] % (Auto) 15.7 H, Eos % (Auto) 3.7, Baso % (Auto) 0.4, Immature Gran # (Auto) 0.0, Neut # 1.8 L, Lymph # 1.9, [place] # 0.7, Eos # 0.2, Baso # 0.0, Sodium 132 L, Potassium 3.8, Chloride 97 L, Carbon Dioxide 28, Anion Gap 10.8, BUN 9, Creatinine 0.77, Estimated GFR (MDRD) 98.00, BUN/Creatinine Ratio 11.68, Glucose 87, Calcium 8.8, Total Bilirubin 0.88 , AST 26, ALT 26, Alkaline Phosphatase 66, Total Creatine Kinase 135, CK-MB (CK- 2) 1.3, CK-MB (CK-2) % 0.81789, Total Protein 6.4, Albumin 3.7, Globulin 2.7, Albumin/Globulin Ratio 1.37, TSH 5.234 H, Free T4 0.92 ASSESSMENT: 1. Fatigue 2. Weight loss 3. Frequent falls 4. Dementia with behavioral disturbance PLAN: 1. Ambulate twice a day 2. Up to chair for meals 3. Stool for C. difficile 4. Stool culture Plan and coordination of the patient's care discussed in the presence of Stopping Builder and nurse. CONDITION: Stable SCRIBED BY: PGE GREENWOOD, Machine Milker scribed while in presence of service performed by Dr. VICKIE AWAN/OUMOU OJEDA APRN on 01/21/17 (0805)
[2017-01-21] MEDS: DEXTROSE 5%-1/2NS IV SOLUTION 1,000 ML IV SCH ×2 (10:25→22:47)
[2017-01-22 05:08] LABS: BASOPHILS % (AUTO) 0.6 % (0.0-3.0); EOSINOPHILS # (AUTO) 0.2 K/ul (0.0-0.7); EOSINOPHILS % (AUTO) 5.2 % (0.0-7.0); HEMATOCRIT 30.4 % (42.0-52.0); HEMOGLOBIN 11.4 g/dl (14.0-18.0); IMMATURE GRANULOCYTE % (AUTO) 0.2 % (0.0-5.0); LYMPHOCYTES # (AUTO) 2.2 K/uL (0.60-3.4); LYMPHOCYTES % (AUTO) 46.8 (10.0-50.0); MEAN CORPUSCULAR HEMOGLOBIN 31.6 pg (27.0-31.0); MEAN CORPUSCULAR HGB CONC 37.5 (31.8-35.4); MEAN CORPUSCULAR VOLUME 84.2 fl (80.0-94.0); MONOCYTES # (AUTO) 0.6 K/uL (0.4-2.0); MONOCYTES % (AUTO) 13.2 (0-10); NEUTROPHILS # (AUTO) 1.6 K/ul (2.0-6.9); PLATELET COUNT 221 10^3/uL (140-440); RED BLOOD COUNT 3.61 10^6/ul (4.70-6.10); WHITE BLOOD COUNT 4.62 K/ul (4.2-10.2)
[2017-01-22 05:28] LABS: ALBUMIN 3.5 g/dL (3.4-5.0); ALBUMIN/GLOBULIN RATIO 1.35; ANION GAP 11.9; BILIRUBIN,TOTAL 0.75 mg/dL (0.00-1.20); BUN/CREATININE RATIO 12.32; CALCIUM 8.6 mg/dL (8.2-10.2); CREATININE 0.73 mg/dL (0.60-1.10); POTASSIUM 3.9 mmol/L (3.5-5.1); TOTAL PROTEIN 6.1 g/dL (5.8-8.1)
[2017-01-22] MEDS: PROTONIX PO SCH (06:12)
[2017-01-22] MEDS: MULTIVITAMIN PO SCH (08:31)
[2017-01-22] MEDS: NAMENDA PO SCH (08:31)
[2017-01-22] MEDS: ARICEPT PO SCH (08:31)
[2017-01-22] MEDS: LEXAPRO PO SCH (08:32)
[2017-01-22] MEDS: FERROUS SULFATE PO SCH (08:32)
[2017-01-22] MEDS: CALCIUM 500 + VIT D 200 MG TABLET PO SCH (08:32)
[2017-01-22] MEDS ORDERED: CLARITIN PO SCH (09:30)
--- NOTE | 2017-01-22 09:37 | HP ---
DATE OF SERVICE: 01/20/17 REASON FOR HOSPITALIZATION/HISTORY OF PRESENT ILLNESS: Significant decline in past week. Tired, weak-sleeping 16-18 hours/day. Lost 14 pounds since November 2016, not eating much. REVIEW OF SYSTEMS: CONSTITUTIONAL: No fever. Fatigue. HEENT: No sinus drainage, no sore throat. RESPIRATORY: No cough, no congestion. CARDIOVASCULAR: No atypical chest pain for coronary artery disease. No angina , CHF symptoms, palpitations. Shortness of breath. GASTROINTESTINAL: No melena or abdominal pain. No GERD. Appetite not good. GENITOURINARY: No hematuria, no prostatism, no polyuria. SHERIFFS: No blackout, no dizziness, no headache, no double vision. Gait: cane MUSCULOSKELETAL: Osteoarthritis pain, no joint swelling. ENDOCRINE: Weight loss- 14 pounds in 8 weeks. No weight gain. SKIN: Not dry, no rash. PSYCHIATRIC: Anxious, no depression, no suicidal thoughts, no homicidal thoughts. Restless. SOCIAL HISTORY: Marital Status: . Five children; 4 adopted one biological daughter 42. Alcohol Usage: No. Tobacco Usage: No. FAMILY HISTORY: Father RI and diabetes mellitus Mother RI Brother Sister one Alzheimer's one sister alive 79 Alzheimer's and diabetes mellitus MEDICAL/SURGICAL HISTORY: Dementia Alzheimer's Mild Depression DJD Spine GERD Large hiatal hernia COPD PVC Anemia History of Rheumatic fever MEDICATIONS: Donepezil 10mg daily Simvastatin 20mg daily Pantoprazole 40mg twice a day Escitalopram 10mg daily Memantine 10mg twice a day Iron 65mg daily Calcium with D daily Multivitamin daily ASA 81mg daily ALLERGIES: Penicillins PHYSICAL EXAMINATION: V/S: Pulse 61, blood pressure 112/68, oxygen saturation 96%, Height 6'2 and 171 pounds. GENERAL APPEARANCE: Oriented times three. HEENT: Normal. NECK: No JVP, no bruits. RESPIRATORY: Lungs are clear. Decreased breath sounds. CARDIOVASCULAR: S1, S2, no S3, Grade I/ systolic murmur. No cyanosis, clubbing. No ascites. GI/ABDOMEN: No tenderness. Bowel sounds are active. EXTREMITIES: edema, pulses +1, equal. SHERIFFS: Deep tendon reflexes, sensory, motor and gait all normal. RECTAL: 01/21 Dr. Jacobs /PROSTATE: 11/22- 0.4 . ASSESSMENT: 1. Fatigue 2. Weightless 3. Falls times two in 8 weeks. Witnessed slumped over floor, no injury 4. Ataxia maybe mild 5. Bowel movement 6-8 times a day 6. No urinary incontinence 7. Dementia-worsening 8. Alzheimer's 9. 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 History of Rheumatic fever PLAN: 1. Admit regular 2. Diet regular 3. Continue all medications 4. CK level 5. U/A and culture and sensitivity 6. CBC, CMP today and daily AM 7. Stool for cultures and sensitivity 8. Stool for C-Diff 9. T4 TSH and B12 level 10.1,000cc D5 1/2 normal saline 12 hourly 11.EKG and X-ray chest 12.Telemetry x 48 hours 13.Continue all home medications except Simvastatin TIME SPENT: More than 70 minutes. ADDENDUM: Chest x-ray mild enlargement of the heart. Lung volumes are diminished. 01/16 and 12/17 normal. Creatinine 0.7, BUN 9, potassium 3.8, TSH borderline elevated, liver profile normal, hgb 11.3, hct 31, WBC 4,000 normal differential. The patient had MRI of the brain done on 12/02/[address] Verdin. Very possible right frontal lesion which was seen MRI done at [facility]. The patient' s MRI was done at [facility] on 12/02/16 which showed moderate cerebellar atrophy and also cerebral atrophy. It was moderate dilatation of ventricle suggesting chronic volume loss and atrophy. There was no possibility of hydrocephalus raise according to Dr. Verdin there were no symptoms of hydrocephalus likely severe ataxia or urinary incontinence. This impression was mainly very likely Alzheimer's Dementia even though he has requested followup in three months to evaluate the symptoms again. The family especially the is aware of this and she is strongly advised to followup with Dr. Verdin. API HEALTHCAREDulce Maria
[2017-01-22 09:53] VITALS: BP 110/78; TEMP 97.3
[2017-01-22] MEDS: DEXTROSE 5%-1/2NS IV SOLUTION 1,000 ML IV SCH ×2 (10:34→11:01)
--- NOTE | 2017-01-22 11:26 | PCM.PROG ---
Attending Provider: ATTENDING PROVIDER: Dr. VICKIE AWAN DATE OF SERVICE: 01/22/17 SUBJECTIVE: This 76 year old WHITE/ M was hospitalized 01/20/17. The patient is seen with Oumou, Nurse Practitioner. The patient is sitting up in bed eating breakfast. He is alert. He rested well last night. He should start PT today; he was up three times last night walking. REVIEW OF SYSTEMS: CONSTITUTIONAL: Fatigue, weakness. No night sweats. No fever or chills. HEENT: Eyes: No visual changes. No eye pain. No eye discharge. ENT: No runny nose. No epistaxis. No sinus pain. No odynophagia. No congestion. RESPIRATORY: No cough, no congestion. No hemoptysis. CARDIOVASCULAR: No angina symptoms. No CHF symptoms. No atypical chest pain for CAD. No palpitations. No shortness of breath. GASTROINTESTINAL: No abdominal pain. No nausea or vomiting. No diarrhea or constipation. No hematemesis. No hematochezia. GENITOURINARY: No urgency. No frequency. No dysuria. No hematuria. No obstructive symptoms. No discharge. No pain. No significant abnormal bleeding. MUSCULOSKELETAL: No musculoskeletal pain; no joint swelling. NEUROLOGICAL: He has bouts of confusion. No headache. No neck pain. No syncope. No seizures. No dizziness. PSYCHIATRIC: Not anxious. No depression. No suicidal thoughts. No homicidal thoughts. SKIN: No rash. No lesions. No wounds. ENDOCRINE: No unexplained weight loss. No weight gain. HEMATOLOGIC/LYMPHATIC: No anemia. No purpura. No petechiae. No prolonged or excessive bleeding. No palpable lymph nodes. PHYSICAL EXAMINATION: GENERAL: The patient is awake with some confusion lying in bed in no distress. VITAL SIGNS: Temperature 97.7 F, Pulse 62, Respiratory Rate 16, BP 134/82, Pulse Ox 98% HEENT: Head normocephalic, atraumatic. Eyes: Extraocular muscles are intact. Pupils are equal, round and reactive to light and accommodation. Ears: No lesions. Nose appeared normal. Throat: No exudate or erythema. NECK: Supple. No JVD, no carotid bruit. No lymphadenopathy or thyromegaly. LUNGS: Diminished breath sounds equal and clear to auscultation. Percussion note normal. Chest symmetrical. HEART: S1, S2, no S3. No murmurs. No cyanosis or clubbing. No ascites. Pulses: Dorsalis pedis and posterior tibial pulses +1 to +2 both sides. ABDOMEN: Soft. Non-tender. Bowel sounds active. No CVA tenderness. No mass felt. EXTREMITIES: No pedal edema. Full range of motion of all extremities, equal. NEUROLOGIC: No focal deficit. Cranial nerves II through XII are grossly intact. No headache, no double vision or headache. SKIN: Not dry. Intact. Turgor-normal. LYMPHATIC: No palpable lymph nodes/no lymphedema. MUSCULOSKELETAL: Normal joints with no swelling. Muscle tone is normal. LAB REVIEW: 01/22/17 04:55 01/22/17 04:55 01/22/17 04:55: WBC 4.62, RBC 3.61 L, Hgb 11.4 L, Hct 30.4 L, MCV 84.2, MCH 31.6 H, MCHC 37.5 H, RDW Coeff of [place] 13.0, Plt Count 221, Immature Gran % (Auto ) 0.2, Neut % (Auto) 34.0, Lymph % (Auto) 46.8, [place] % (Auto) 13.2 H, Eos % ( Auto) 5.2, Baso % (Auto) 0.6, Immature Gran # (Auto) 0.0, Neut # 1.6 L, Lymph # 2.2, [place] # 0.6, Eos # 0.2, Baso # 0.0, Sodium 130 L, Potassium 3.9, Chloride 97 L, Carbon Dioxide 25, Anion Gap 11.9, BUN 9, Creatinine 0.73, Estimated GFR ( MDRD) 104.00, BUN/Creatinine Ratio 12.32, Glucose 105, Calcium 8.6, Total Bilirubin 0.75, AST 23, ALT 24, Alkaline Phosphatase 63, Total Protein 6.1, Albumin 3.5, Globulin 2.6, Albumin/Globulin Ratio 1.35 ASSESSMENT: 1. Fatigue 2. Weight loss 3. Frequent falls 4. Dementia with behavioral disturbance PLAN: 1. PT today. 2. Loratadine 10 mg once a day Plan and coordination of the patient's care discussed in the presence of Cigarette Package Examiner and nurse. CONDITION: Stable SCRIBED BY: Tani FIGUEREDO scribed while in presence of service performed by Dr. VICKIE AWAN/OUMOU OJEDA APRN on 01/22/17 (0821)
--- NOTE | 2017-01-22 13:36 | CM.DICTOOL ---
ADMISSION: 01/20/17 10:21 DISCHARGE: 01/22/17 FINAL DIAGNOSIS: FATIGUE WEIGHT LOSS FALLS HISTORY OF: DEMENTIA ALZHEIMERS RHEUMATIC FEVER COPD GERD OSTEOARTHRITIS DEPRESSION ANEMIA SURGICAL HISTORY: CHOLECYSTECTOMY DATE UNKNOWN HIATAL HERNIA LAST VITALS Temp Pulse Resp BP Pulse Ox 97.3 F L 67 16 110/78 99 01/22/17 09:53 01/22/17 09:53 01/22/17 09:53 01/22/17 09:53 01/22/17 09:53 ACTIVE MEDICATIONS Calcium/Vitamin D (Calcium 500 + Vit D 200 Mg Tablet) 1 each PO DAILY [facility] Last Admin: 01/22/17 08:32 Dose: 1 each Donepezil HCl (Aricept) 10 mg PO DAILY [facility] Last Admin: 01/22/17 08:31 Dose: 10 mg Escitalopram Oxalate (Lexapro) 10 mg PO DAILY [facility] Last Admin: 01/22/17 08:32 Dose: 10 mg Ferrous Sulfate (Ferrous Sulfate) 324 mg PO DAILY [facility] Last Admin: 01/22/17 08:32 Dose: 324 mg Loratadine (Claritin) 10 mg PO DAILY [facility] Last Admin: 01/22/17 10:34 Dose: 10 mg Memantine (Namenda) 10 mg PO BID [facility] Last Admin: 01/22/17 08:31 Dose: 10 mg Multivitamins (Multivitamin) 1 cap PO DAILY [facility] Last Admin: 01/22/17 08:31 Dose: 1 cap Pantoprazole Sodium (Protonix) 40 mg PO BIDAC [facility] Last Admin: 01/22/17 06:12 Dose: 40 mg ZOCOR 20MG PO DAILY ASPIRIN 81MG PO DAILY ALLERGIES Penicillins Adverse Reaction (Verified 02/26/16 10:51) NEW PRESCRIPTIONS: NONE SMOKING: N/A DISEASE SPECIFIC EDUCATION: WEAKNESS FATIGUE FALLS WEIGHT LOSS MEDICATIONS LAB REVIEW: 01/22/17 04:55 01/22/17 04:55 01/22/17 04:55: WBC 4.62, RBC 3.61 L, Hgb 11.4 L, Hct 30.4 L, MCV 84.2, MCH 31.6 H, MCHC 37.5 H, RDW Coeff of [place] 13.0, Plt Count 221, Immature Gran % (Auto ) 0.2, Neut % (Auto) 34.0, Lymph % (Auto) 46.8, [place] % (Auto) 13.2 H, Eos % ( Auto) 5.2, Baso % (Auto) 0.6, Immature Gran # (Auto) 0.0, Neut # 1.6 L, Lymph # 2.2, [place] # 0.6, Eos # 0.2, Baso # 0.0, Sodium 130 L, Potassium 3.9, Chloride 97 L, Carbon Dioxide 25, Anion Gap 11.9, BUN 9, Creatinine 0.73, Estimated GFR ( MDRD) 104.00, BUN/Creatinine Ratio 12.32, Glucose 105, Calcium 8.6, Total Bilirubin 0.75, AST 23, ALT 24, Alkaline Phosphatase 63, Total Protein 6.1, Albumin 3.5, Globulin 2.6, Albumin/Globulin Ratio 1.35 PLAN: DISCHARGE HOME CONTINUE HOME MEDICATIONS PER NURSING SHEET NO NEW MEDICATIONS FOLLOW UP IN 5 TO 7 DAYS. CALL FOR APPOINTMENT. [phone]. USE CANE WHEN AMBULATING ALERT AND ORIENTED X 4 WITH FORGETFULNESS. SPOUSE AT BEDSIDE. Angela OJEDA APRN INTO SEE PATIENT. SPOUSE STATES PATIENT RESTED MUCH BETTER LAST PM. SPOUSE ALSO STATES SHE FEEL PATIENT NEEDS HIS CLARITIN HE TAKES AT HOME DUE TO NASAL DRIP. APPETITE IS GOOD. VITAL SIGNS ARE GOOD. HEART TONES ARE SLIGHTLY IRREGULAR WITH TELEMETRY REVEALING SINUS RHYTHM WITH FIRST DEGREE AVB. DENIES ANY CHEST PAIN. LUNGS ARE CLEAR. NO COUGH OR DYSPNEA NOTED. ABDOMEN IS SOFT, NON-TENDER WITH BOWEL SOUNDS POSITIVE IN ALL 4 QUADS. HAS NOT HAD ANY DIARRHEA SINCE ADMIT. WILL DISCONTINUE ISOLATION. PEDAL PULSES POSITIVE WITH NON-PITTING EDEMA TO BILATERAL LOWER EXTREMITIES. HAS IV OF D51/2NS AT 83ML/HR IN RIGHT HAND SITE IS CLEAR. IS FALL RISK WITH FALL PRECAUTIONS IN USE. IS AN ASSIST X 1 WITH USE OF STRAIGHT CANE. VICKIE AWAN MD TELLY OJEDA APRN
--- NOTE | 2017-01-22 15:27 | PN ---
DATE OF SERVICE: 01/21/17 SUBJECTIVE: The patient is a 76 year old white male was hospitalized with fatigue, weight loss, falls and deterioration of his dementia. The patient's condition seems to have improve some. He is more alert. He has been walking with the nurse almost two to three hundred steps. There is no real diarrhea noted. REVIEW OF SYSTEMS: CONSTITUTIONAL: No night sweats. No fatigue, malaise, lethargy. No fever or chills. Confused but alert. HEENT: Eyes: No visual changes. No eye pain. No eye discharge. ENT: No runny nose. No epistaxis. No sinus pain. No sore throat. No odynophagia. No congestion. RESPIRATORY: No cough, no congestion. No hemoptysis. CARDIOVASCULAR: No angina symptoms. No CHF symptoms. No atypical chest pain for CAD. No palpitations. No shortness of breath. GASTROINTESTINAL: No abdominal pain. No nausea or vomiting. No diarrhea or constipation. No hematemesis. No hematochezia. Appetite is OK but not so great. GENITOURINARY: No urgency. No frequency. No dysuria. No hematuria. No obstructive symptoms. No discharge. No pain. No significant abnormal bleeding. MUSCULOSKELETAL: No musculoskeletal pain; no joint swelling. NEUROLOGICAL: No headache. No neck pain. No syncope. No seizures. No dizziness. PSYCHIATRIC: Not anxious. No depression. No suicidal thoughts. No homicidal thoughts. SKIN: No rash. No lesions. No wounds. ENDOCRINE: No unexplained weight loss. No weight gain. HEMATOLOGIC/LYMPHATIC: No anemia. No purpura. No petechiae. No prolonged or excessive bleeding. No palpable lymph nodes. PHYSICAL EXAMINATION: GENERAL: The patient is oriented to person. VITAL SIGNS: Temperature 97.8,pulse 68, respiratory rate 14, blood pressure 137 /69 and pulse ox 93%. HEENT: Head normocephalic, atraumatic. Eyes: Extraocular muscles are intact. Pupils are equal, round and reactive to light and accommodation. Ears: No lesions. Nose appeared normal. Throat: No exudate or erythema. Mild pallor noted. NECK: Supple. No JVD, no carotid bruit. No lymphadenopathy or thyromegaly. LUNGS: Decreased breaths sounds but clear to auscultation. Percussion note normal. Chest symmetrical. HEART: S1, S2, no S3. No murmurs. No cyanosis or clubbing. No ascites. Pulses: Dorsalis pedis and posterior tibial pulses +1 to +2 both sides. ABDOMEN: Soft. Nontender. Bowel sounds active. No CVA tenderness. No mass felt. EXTREMITIES: No edema. Full range of motion of all extremities, equal. NEUROLOGIC: No focal deficit. Cranial nerves II through XII are grossly intact. No headache, no double vision or headache. SKIN: Not dry. Intact. Turgor - normal. LYMPHATIC: No palpable lymph nodes/no lymphedema. MUSCULOSKELETAL: Normal joints with no swelling. Muscle tone is normal. LABS: hgb 11.3, hct 31, WBC 4,700 normal differential, creatinine 0.7, BUN 10, T4 TSH acceptable, CK-MB negative. ASSESSMENT: 1. Alzheimer's dementia 2. Fatigue 3. Weakness likely secondary to dehydration 4. Depression PLAN: 1. Continue IV fluids, hydration status is somewhat better 2. Advised to eat on a regular basis, nutritional status is declining adding to the fatigue 3. Continue Aricept, Lexapro, Namenda, Protonix CONDITION: STABLE The patient was seen with Nurse Practitioner. TIME SPENT: More than 30 minutes. Plan and coordination of the patient's care discussed in the presence of nurse. GIGI
--- NOTE | 2017-01-28 14:52 | DS ---
DATE OF SERVICE: 01/22/17 FINAL DIAGNOSIS: 1. FATIGUE 2. WEIGHT LOSS 3. FALLS HISTORY OF: 4. DEMENTIA 5. ALZHEIMER'S 6. RHEUMATIC FEVER 7. COPD 8. GERD 9. OSTEOARTHRITIS 10. DEPRESSION 11. ANEMIA SURGICAL HISTORY: 12. CHOLECYSTECTOMY DATE UNKNOWN 13. HIATAL HERNIA DISCHARGE INSTRUCTIONS: Followup appointment in 5 to 7 days, call for appointment. MEDICATIONS AT DISCHARGE: Multivitamin one cap p.o. daily Simvastatin 20 mg p.o. dina ly Ca Carbonate/Vitamin D3/Vitamin K one each p.o. daily Donepezil 10 mg p.o. daily Ferrous Sulfate 65 mg p.o. daily Protonix 40 mg p.o. b.i.d. a.c. Lexapro 10 mg p.o. daily Aspirin 81 mg p.o. daily Memantine 10 mg p.o. b.i.d. NEW PRESCRIPTIONS: NONE DIET INSTRUCTIONS: Heart Healthy ACTIVITY: As patient tolerates; use cane when ambulating. SMOKING: N/A DISEASE SPECIFIC EDUCATION: Weakness Fatigue Falls Weight loss Medications HOSPITAL COURSE: This is a 76-year-old male who was a direct admit from the office. He presented to our office with weakness, fatigue, confusion. He has a history of hyponatremia. He was admitted with initial sodium level of 127. He was given IV fluids. Yesterday his sodium was up to 135. His stated that he had been sleeping a lot more at home and had decreased appetite. He had undergone recently within the past couple of months, MRI and CT scan of the brain which showed dementia. It is gradually progressing. His vital signs have remained steady during the course of his hospital stay. He was started with physical and occupational therapy in order to improve his strength. He was placed on routine telemetry orders which showed continuous normal sinus rhythm. He was experiencing some stomach upset and stool studies were done. C. diff was negative. Stool culture was negative. All of his home medications were continued. Again, his vital signs remained stable. Labs were done. On the day of discharge hemoglobin 11.4, hematocrit 30.4, white count 4.62, platelets 221. 130 sodium, 3.9 potassium, chloride 97, BUN 9, creatinine 0.73, glucose 105. On admission TSH was 5.2, free T4 0.92. After being in the hospital for 2 days, the patient stated he was feeling better. The thought they learned some exercises to do. He had been eating better. Yesterday evening he ate 100% of his meal and again at breakfast this morning he ate 100%. All of his labs and vital signs have remained stable. We do believe that his decline in function is due to the normal progression of dementia. As an outpatient, we will do a CT scan of the abdomen as a precaution due to GI upset which is occasional. His chest x-ray was normal upon admission. Again his vital signs remained steady today the day of discharge. Temperature 97.7, heart rate 62, respirations 16, BP 134/82, pulse ox 98. This morning on examination the patient was alert and oriented. He knew where he was. He recognized myself. We will followup with him closely while in the office. TIME SPENT: More than 60 minutes. GIGI
--- NOTE | 2017-01-29 08:29 | PN ---
DATE OF SERVICE: 01/22/17 DISCHARGE NOTE SUBJECTIVE: The patient is a 76 year old white male who was seen and examined with Nurse Practitioner, please see her noted. REVIEW OF SYSTEMS: CONSTITUTIONAL: No night sweats. No fatigue, malaise, lethargy. No fever or chills. HEENT: Eyes: No visual changes. No eye pain. No eye discharge. ENT: No runny nose. No epistaxis. No sinus pain. No sore throat. No odynophagia. No congestion. RESPIRATORY: No cough, no congestion. No hemoptysis. No shortness of breath. CARDIOVASCULAR: No angina symptoms. No CHF symptoms. No atypical chest pain for CAD. No palpitations. No orthopnea. GASTROINTESTINAL: No abdominal pain. No nausea or vomiting. No diarrhea or constipation. No hematemesis. No hematochezia. GENITOURINARY: No urgency. No frequency. No dysuria. No hematuria. No obstructive symptoms. No discharge. No pain. No significant abnormal bleeding. MUSCULOSKELETAL: No musculoskeletal pain; no joint swelling. NEUROLOGICAL: No headache. No neck pain. No syncope. No seizures. No dizziness. Confusion. PSYCHIATRIC: Not anxious. No depression. No suicidal thoughts. No homicidal thoughts. SKIN: No rash. No lesions. No wounds. ENDOCRINE: No unexplained weight loss. No weight gain. HEMATOLOGIC/LYMPHATIC: No anemia. No purpura. No petechiae. No prolonged or excessive bleeding. No palpable lymph nodes. PHYSICAL EXAMINATION: GENERAL: The patient is up and about . The is present all along. I had long discussion with the that patient has Alzheimer's disease with dementia which is getting worse. According to her son Christiano has a hard time accepting the fact that his dad has Alzheimer's disease. The patient is already being seen by Dr. Verdin. He thinks that same way and he doesn't think that patient has hydrocephalus. I strongly advised the to have him followup with Dr. Verdin. VITAL SIGNS: Temperature 97.7, pulse 62, respiratory rate 16, blood pressure 134 /82 and pulse ox 98%. HEENT: Head normocephalic, atraumatic. Eyes: Extraocular muscles are intact. Pupils are equal, round and reactive to light and accommodation. Ears: No lesions. Nose appeared normal. Throat: No exudate or erythema. NECK: Supple. No JVD, no carotid bruit. No lymphadenopathy or thyromegaly. LUNGS: Decreased breath sounds but clear to auscultation. Percussion note normal. Chest symmetrical. HEART: S1, S2, no S3. No murmurs. No cyanosis or clubbing. No ascites. Pulses: Dorsalis pedis and posterior tibial pulses +1 to +2 both sides. ABDOMEN: Soft. Nontender. Bowel sounds active. No CVA tenderness. No mass felt. EXTREMITIES: No edema. Full range of motion of all extremities, equal. NEUROLOGIC: No focal deficit. Cranial nerves II through XII are grossly intact. No headache, no double vision or headache. SKIN: Not dry. Intact. Turgor - normal. LYMPHATIC: No palpable lymph nodes/no lymphedema. MUSCULOSKELETAL: Normal joints with no swelling. Muscle tone is normal. LABS: Hgb 11.4, hct 30, WBC 4,600 normal differential, creatinine 0.7, BUN 9, potassium 3.9. T4 TSH normal, CK-MB was negative. ASSESSMENT: 1. Alzheimer's disease with dementia 2. Dehydration, resolved PLAN: 1. Loratadine to be given for allergies 2. The patient is strongly advised to walk 3. Eat small meals 4. Advised to come back in 3-4 days on followup CONDITION: Stable TIME SPENT: More than 30 minutes. Plan and coordination of the patient's care discussed in the presence of nurse. GIGI
--- NOTE | 2017-01-29 08:30 | PN ---
01/20/17: Level 5 01/21/17: Intermediate 01/22/17: D as in discharge MTDD
== END 2017-01-22 14:15 | disposition home or self-care (01) | DRG 948 ==
LOC: MEDSURG A 10:21
PROVIDERS: ADMIT Internal Medicine; ATTEND Internal Medicine
DX: R53.83 Other fatigue (principal); F02.81 Dementia in other diseases classified elsewhere, unspecified severity, with behavioral disturbance; G30.9 Alzheimer's disease, unspecified; R63.4 Abnormal weight loss; J44.9 Chronic obstructive pulmonary disease, unspecified; K21.9 Gastro-esophageal reflux disease without esophagitis; K44.9 Diaphragmatic hernia without obstruction or gangrene; M19.90 Unspecified osteoarthritis, unspecified site; F32.9 Major depressive disorder, single episode, unspecified; R01.1 Cardiac murmur, unspecified; R10.9 Unspecified abdominal pain; R29.6 Repeated falls; Z86.79 Personal history of other diseases of the circulatory system; Z79.899 Other long term (current) drug therapy
CPT/HCPCS: 36415; 80053; 81001; 82550; 82553; 82607; 84439; 84443; 85025; 87015; 87045; 87493; 87899; 93005; 93010; 97802; 99223; 99232; 99239

== ENCOUNTER 2017-01-23 14:22 | Emergency (ER) | payer OTHER ==
[2017-01-23 14:32] VITALS: BP 111/60; TEMP 97.7; BMI 22.9
[2017-01-23 15:19] LABS: BASOPHILS % (AUTO) 0.4 % (0.0-3.0); EOSINOPHILS # (AUTO) 0.2 K/ul (0.0-0.7); EOSINOPHILS % (AUTO) 4.4 % (0.0-7.0); HEMATOCRIT 27.4 % (42.0-52.0); HEMOGLOBIN 11.2 g/dl (14.0-18.0); IMMATURE GRANULOCYTE % (AUTO) 0.2 % (0.0-5.0); LYMPHOCYTES # (AUTO) 1.9 K/uL (0.60-3.4); LYMPHOCYTES % (AUTO) 42.4 (10.0-50.0); MEAN CORPUSCULAR HEMOGLOBIN 36.1 pg (27.0-31.0); MEAN CORPUSCULAR HGB CONC 40.9 (31.8-35.4); MEAN CORPUSCULAR VOLUME 88.4 fl (80.0-94.0); MONOCYTES # (AUTO) 0.6 K/uL (0.4-2.0); NEUTROPHILS # (AUTO) 1.9 K/ul (2.0-6.9); NEUTROPHILS % (AUTO) 40.6; PLATELET COUNT 240 10^3/uL (140-440); WHITE BLOOD COUNT 4.58 K/ul (4.2-10.2)
--- NOTE | 2017-01-23 15:22 | DI ---
EXAM: Single frontal view of the chest HISTORY: Cough. COMPARISON: Chest x-ray 01/20/2017 FINDINGS: Cardiomediastinal silhouette is normal. There is no pneumothorax or pleural effusion. Th ere is no consolidation, nodule or mass. There is mild lower lobe airway thickening. The osseous s tructures are unremarkable. IMPRESSION: Mild lower lobe airway thickening suggestive of bronchiolitis.
[2017-01-23 15:43] LABS: PARTIAL THROMBOPLASTIN TIME 26.9 SEC (23.9-40.0); PROTHROMBIN TIME 10.6 SEC (9.3-11.0)
[2017-01-23 15:57] LABS: ALANINE AMINOTRANSFERASE 25 U/L (12-78); ALBUMIN 3.5 g/dL (3.4-5.0); ALKALINE PHOSPHATASE 62 U/L (56-119); ANION GAP 9.6; ASPARTATE AMINO TRANSFERASE 22 U/L (15-37); BILIRUBIN,TOTAL 0.74 mg/dL (0.00-1.20); BLOOD UREA NITROGEN 10 mg/dL (7-18); BUN/CREATININE RATIO 13.15; CALCIUM 8.6 mg/dL (8.2-10.2); CARBON DIOXIDE 27 mmol/L (23-31); CHLORIDE 95 mmol/L (98-107); CREATINE KINASE 197 U/L; CREATININE 0.76 mg/dL (0.60-1.10); GLUCOSE 117 mg/dL (82-115); POTASSIUM 3.6 mmol/L (3.5-5.1); SODIUM 128 mmol/L (136-145)
[2017-01-23 16:00] LABS: CREATINE KINASE MB 1.2 ng/ml (0.0-3.6)
--- NOTE | 2017-01-23 16:04 | ED.PDOC ---
General ED Provider: Dr. LUIZ GAINES Chief Complaint: Weakness Stated Complaint: WEAKNESS Time Seen by Physician: 14:24 (D/C FROM HOSPITAL 1 DAY AGO) Mode of Arrival: Wheelchair Information Source: Patient, Family Exam Limitations: No limitations Primary Care Provider: VICKIE AWAN Nursing and Triage Documentation Reviewed and Agree: Yes Neurological Complaint Exam - Weakness Complaint/Exam Last Known Well: D/C FROM HOSPITAL 1 DAY PRIOR Onset: Gradual Duration: PRESENT Symptoms Are: Still present Timing: Constant Episodes Lasting: Hours Initial Severity: Moderate Current Severity: Moderate Character: Reports: Lightheaded, Weak Aggravating: Reports: None Alleviating: Reports: None Associated Signs and Symptoms: Reports: Decreased oral intake. Denies: Nausea, Vomiting, Diaphoresis, Tinnitus, Chest pain, Short of air, Palpitations, Unsteady gait, GI blood loss, Visual changes, Change in medication, Change in diet, OTC meds, Loss of balance Related History: Similar episode Cardiac Risk Factors: Reports: Elevated lipids CVA Risk Factors: Reports: None Related Surgical History: Reports: None JVD Present: No Carotid Bruit Present: No Glascow Coma Scale (see protocol): 15 Nystagmus Present: No Gag Reflex Present: Yes Meningeal Signs Positive: No Focal Weakness: Present: None Focal Sensory Loss: Present: None Gait: Normal Babinski Sign: Negative Right, Negative Left Differential Diagnoses: Anxiety, CAD, Dysrhythmia, BPPV, Hyperventilation, Hypovolemia, Medication reaction, Metabolic abnormalities, Vasovagal reaction Quality Indicators for Cardiac Chest Pain: EKG in 10min. Quality Indicators for AMI: EKG in 10min. Quality Indicator For Non-Traumatic Chest Pain/Syncope: EKG Performed Review of Systems - Review Of Systems Constitutional: Reports: Malaise, Weakness Eyes: Reports: No symptoms Ears, Nose, Mouth, Throat: Reports: No symptoms Respiratory: Reports: No symptoms Cardiac: Reports: No symptoms GI: Reports: No symptoms : Reports: No symptoms Musculoskeletal: Reports: No symptoms Skin: Reports: No symptoms Neurological: Reports: No symptoms Endocrine: Reports: No symptoms Hematologic/Lymphatic: Reports: No symptoms All Other Systems: Reviewed and Negative Past Medical History - Past Medical History Previously Healthy: Yes Endocrine: Reports: Dyslipidemia Cardiovascular: Reports: None Respiratory: Reports: None Hematological: Reports: None Gastrointestinal: Reports: GERD Genitourinary: Reports: None Neuro/Psych: Reports: None Musculoskeletal: Reports: None Cancer: Reports: None - Surgical History General Surgical History: Reports: None - Family History Family History: Reports: None - Social History Smoking Status: Never smoker Hx Substance Use: No Alcohol Screening: None Physical Exam - Physical Exam Appearance: Well-appearing, No pain distress, Well-nourished Eyes: JOHANN, EOMI, Conjunctiva clear ENT: Ears normal, Nose normal, Oropharynx normal Respiratory: Airway patent, Breath sounds clear, Breath sounds equal, Respirations nonlabored Cardiovascular: RRR, Pulses normal, No rub, No murmur GI/: Soft, Nontender, No masses, Bowel sounds normal, No Organomegaly Musculoskeletal: Normal strength, ROM intact, No edema, No calf tenderness Skin: Warm, Dry, Normal color Neurological: Sensation intact, Motor intact, Reflexes intact, Cranial nerves intact, Alert, Oriented Psychiatric: Affect appropriate, Mood appropriate Interpretation - Radiology Interpretation Radiology Interpretation By: Radiologist Radiology Results: No acute changes Exam Interpreted: CXR Physician Notification - Case Discussed Physician Notified: AWAN Time of Notification: 16:05 (HYPONATREMIA, ANEMIA DISCUSEED WITH PMD TSH BEING ELEVATED PMD THINKS THAT PT IS SAFE TO GO HOME AT THIS MAY RETURN FOR ANY ADDITIONAL PROBLEM) Critical Care Note - Critical Care Note Total Time (mins): 0 Course - Course Hematology/Chemistry: 01/23/17 15:00 01/23/17 15:00 Orders, Labs, Meds: Lab Review 01/23/17 15:00 WBC 4.58 RBC 3.10 L Hgb 11.2 L Hct 27.4 L MCV 88.4 MCH 36.1 H MCHC 40.9 H RDW Coeff of [place] 13.5 Plt Count 240 Immature Gran % (Auto) 0.2 Neut % (Auto) 40.6 Lymph % (Auto) 42.4 [place] % (Auto) 12.0 H Eos % (Auto) 4.4 Baso % (Auto) 0.4 Immature Gran # (Auto) 0.0 Neut # 1.9 L Lymph # 1.9 [place] # 0.6 Eos # 0.2 Baso # 0.0 PT 10.6 INR 1.04 APTT 26.9 Sodium 128 L Potassium 3.6 Chloride 95 L Carbon Dioxide 27 Anion Gap 9.6 BUN 10 Creatinine 0.76 Estimated GFR (MDRD) 99.00 BUN/Creatinine Ratio 13.15 Glucose 117 H Lactic Acid 7.4 Calcium 8.6 Total Bilirubin 0.74 AST 22 ALT 25 Alkaline Phosphatase 62 Total Creatine Kinase 197 CK-MB (CK-2) 1.2 CK-MB (CK-2) % 0.46179 Troponin I < 0.0100 Total Protein 6.0 Albumin 3.5 Globulin 2.5 Albumin/Globulin Ratio 1.40 Procalcitonin < 0.05 TSH 5.195 H Free T4 0.84 Orders Category Date Time Status EKG-(ED ONLY) Stat CARDIO 01/23/17 14:41 Completed BLOOD CULTURE Stat LAB 01/23/17 15:00 Received CBC W/ AUTO DIFF Stat LAB 01/23/17 15:00 Completed COMPREHENSIVE METABOLIC PANEL Stat LAB 01/23/17 15:00 Completed CREATINE KINASE Stat LAB 01/23/17 15:00 Completed FREE T4 (FREE THYROXINE) Stat LAB 01/23/17 15:00 Completed LACTIC ACID Stat LAB 01/23/17 15:00 Completed PARTIAL THROMBOPLASTIN TIME Stat LAB 01/23/17 15:00 Completed PROCALCITONIN Stat LAB 01/23/17 15:00 Completed PT WITH INR Stat LAB 01/23/17 15:00 Completed THYROID STIMULATING HORMONE Stat LAB 01/23/17 15:00 Completed TROPONIN I Stat LAB 01/23/17 15:00 Completed URINALYSIS C & S IF INDICATED Stat LAB 01/23/17 14:41 Uncollected CHEST, 1V AP ONLY Stat RADS 01/23/17 14:41 Completed Vital Signs: Temp Pulse Resp BP Pulse Ox 01/23/17 14:24 97.7 F 60 20 111/60 97 Departure - Departure Time of Disposition: 16:05 Disposition: HOME SELF-CARE Discharge Problem: Weakness generalized, Fatigue Instructions: Weakness (ED) Condition: Good Pt referred to PMD for follow-up: Yes Allergies/Adverse Reactions: Allergies Penicillins Adverse Reaction (Verified 01/23/17 14:32) Home Medications: Ambulatory Orders Ca Carbonate/Vitamin D3/Vit K [Calcium + D Soft Chewable Tab] 1 each PO DAILY Multivitamin 1 cap PO DAILY 11/29/13 Simvastatin [Zocor] 20 mg PO DAILY 11/29/13 Donepezil HCl [Aricept] 10 mg PO DAILY #30 tablet 02/29/16 Ferrous Sulfate [Iron] 65 mg PO DAILY 10/15/16 Pantoprazole Sodium [Protonix] 40 mg PO BIDAC 10/15/16 Escitalopram Oxalate [Lexapro] 10 mg PO DAILY #30 tablet 10/17/16 Aspirin [Adult Low Dose Aspirin EC] 81 mg PO DAILY 01/20/17 Memantine HCl [Namenda] 10 mg PO BID 01/20/17 Disposition Discussed With: Patient, Family
== END 2017-01-23 16:23 | disposition home or self-care (01) ==
LOC: ED 14:22
DX: R53.1 Weakness (principal); R53.83 Other fatigue; R42 Dizziness and giddiness; E78.5 Hyperlipidemia, unspecified; E87.1 Hypo-osmolality and hyponatremia; D64.9 Anemia, unspecified; Z79.899 Other long term (current) drug therapy
CPT/HCPCS: 36415; 80053; 82550; 82553; 83605; 84145; 84439; 84443; 84484; 85025; 85610; 85730; 87040; 93005; 93010; 99283

== ENCOUNTER 2017-01-27 09:01 | Outpatient (CLI) | payer OTHER ==
--- NOTE | 2017-01-27 10:01 | CT ---
EXAM: CT abdomen pelvis with contrast HISTORY: Weight loss, nausea COMPARISON: 02/29/2016 TECHNIQUE: CT abdomen pelvis performed with intravenous contrast. Coronal and sagittal reformatted images obtained. FINDINGS: Evaluation limited due to motion artifact. Mild subsegmental atelectasis lung bases. No free air. No acute abnormalities of the bones. Degenerative change in the spine. The heart mary l in size. Liver grossly unremarkable. Patient status post cholecystectomy. Pancreas grossly unre markable. Spleen grossly unremarkable. Adrenals grossly unremarkable. Kidneys grossly unremarkabl e. Aorta normal in caliber. Atherosclerosis. Bladder grossly unremarkable. Prostate normal in si ze. No lymphadenopathy or ascites.. No lymphadenopathy or ascites identified. Moderate hiatal her dominik. Colonic diverticulosis. No evidence for bowel obstruction IMPRESSION: 1. No acute abnormality identified in the abdomen or pelvis. 2. Colonic diverticulosis. 3. Moderate hiatal hernia. 4. Evaluation limited due to motion artifact.
== END 2017-01-27 09:02 | disposition home or self-care (01) ==
LOC: RAD 09:01
PROVIDERS: ATTEND Internal Medicine
DX: R11.0 Nausea (principal); R63.4 Abnormal weight loss

== ENCOUNTER 2017-06-05 19:54 | Inpatient (IN) ==
[2017-06-05] MEDS ORDERED: ZOFRAN 4 MG/2 ML IVP STA (20:13)
[2017-06-05] MEDS ORDERED: SODIUM CHLORIDE 1,000 ML IV STA (20:13)
[2017-06-05] MEDS ORDERED: PROTONIX IV IVP STA (20:14)
--- NOTE | 2017-06-05 20:28 | ED.PDOC ---
General ED Provider: Dr. RANDOLPH ARAIZA Chief Complaint: Altered Mental Status Stated Complaint: Patient is brought by , he is been vomiting couple times today, had diarrhea, weak, not able to walk. Time Seen by Physician: 20:26 Mode of Arrival: Wheelchair Information Source: Patient, Family Primary Care Provider: VICKIE AWAN Nursing and Triage Documentation Reviewed and Agree: Yes Reviewed sepsis parameters & appropriate labs ordered?: Yes System Inflammatory Response Syndrome: Not Applicable Sepsis Protocol: For patient's 13 years and over: Temp is 96.8 and below OR 101 and greater Pulse >90 BPM Resp >20/minute Acutely Altered Mental Status Are patient's symptoms suggestive of a new infection, such as: -Pneumonia -Skin, Soft Tissue -Endocarditis -UTI -Bone, Joint Infection -Implantable Device -Acute Abdominal Infection -Wound Infection -Meningitis -Blood Stream Catheter Infection -Unknown Neurological Complaint Exam - Weakness Complaint/Exam Onset: Gradual Symptoms Are: Still present Timing: Constant Episodes Lasting: Hours Initial Severity: Moderate Current Severity: Moderate Character: Reports: Unable to describe Aggravating: Reports: Supine to erect Alleviating: Reports: None Associated Signs and Symptoms: Reports: Nausea, Vomiting. Denies: Diaphoresis, Tinnitus, Chest pain, Short of air, Palpitations, Unsteady gait, GI blood loss, Visual changes, Decreased oral intake, Change in medication, Change in diet, OTC meds, Loss of balance Cardiac Risk Factors: Reports: None CVA Risk Factors: Reports: None Related Surgical History: Reports: None JVD Present: No Carotid Bruit Present: No Rectal Heme Positive: No Nystagmus Present: No Gag Reflex Present: Yes Meningeal Signs Positive: No Focal Weakness: Present: None Focal Sensory Loss: Present: None Gait: Unable [id number]: Normal Findings Differential Diagnoses: Medication reaction, Metabolic abnormalities Quality Indicators for Cardiac Chest Pain: EKG in 10min. Review of Systems - Review Of Systems Constitutional: Reports: Malaise, Weakness Eyes: Reports: No symptoms Ears, Nose, Mouth, Throat: Reports: No symptoms Respiratory: Reports: No symptoms Cardiac: Reports: No symptoms GI: Reports: Diarrhea, Nausea, Vomiting : Reports: No symptoms Musculoskeletal: Reports: No symptoms Skin: Reports: No symptoms Neurological: Reports: No symptoms Endocrine: Reports: No symptoms Hematologic/Lymphatic: Reports: No symptoms All Other Systems: Reviewed and Negative Past Medical History - Past Medical History Previously Healthy: Yes Endocrine: Reports: Dyslipidemia Cardiovascular: Reports: None Respiratory: Reports: None Hematological: Reports: None Gastrointestinal: Reports: GERD Genitourinary: Reports: None Neuro/Psych: Reports: None Musculoskeletal: Reports: None Cancer: Reports: None - Surgical History General Surgical History: Reports: None - Family History Family History: Reports: None - Social History Smoking Status: Never smoker Hx Substance Use: No Alcohol Screening: None Lives: With family Physical Exam - Physical Exam Appearance: Ill-appearing, Thin Eyes: EOMI ENT: Ears normal, Nose normal, Oropharynx normal Respiratory: Airway patent, Breath sounds clear, Breath sounds equal, Respirations nonlabored Cardiovascular: Murmur GI/: Soft, Nontender, No masses, Bowel sounds normal, No Organomegaly Musculoskeletal: Normal strength, ROM intact, No edema, No calf tenderness Skin: Warm, Dry, Normal color Neurological: Sensation intact, Motor intact, Reflexes intact, Cranial nerves intact, Alert, Oriented Psychiatric: Affect appropriate, Mood appropriate Interpretation - Radiology Interpretation Radiology Interpretation By: Radiologist Radiology Results: Positive Exam Interpreted: CT Scan Critical Care Note - Critical Care Note Total Time (mins): 15 Course - Course Hematology/Chemistry: 06/05/17 20:31 06/05/17 20:31 Orders, Labs, Meds: Lab Review 06/05/17 06/05/17 06/05/17 20:14 20:20 20:31 WBC 5.68 RBC 4.12 L Hgb 12.8 L Hct 36.6 L MCV 88.8 MCH 31.1 H MCHC 35.0 RDW Coeff of [place] 13.5 Plt Count 180 Immature Gran % (Auto) 0.2 Neut % (Auto) 66.3 Lymph % (Auto) 22.9 [place] % (Auto) 6.7 Eos % (Auto) 3.5 Baso % (Auto) 0.4 Immature Gran # (Auto) 0.0 Neut # 3.8 Lymph # 1.3 [place] # 0.4 Eos # 0.2 Baso # 0.0 Puncture Site Lb O2 Saturation 95.0 ABG pH 7.452 H ABG pCO2 35.9 ABG pO2 70.0 L ABG HCO3 25.1 ABG Total CO2 26 ABG Base Excess 1 Christopher Test + FiO2 % 21.0 Sodium Potassium Chloride Carbon Dioxide Anion Gap BUN Creatinine Estimated GFR (MDRD) BUN/Creatinine Ratio Glucose Calcium Total Bilirubin AST ALT Alkaline Phosphatase Total Creatine Kinase Troponin I Total Protein Albumin Globulin Albumin/Globulin Ratio Urine Color Urine Clarity Urine pH Ur Specific [place] Urine Protein Urine Glucose (UA) Urine Ketones Urine Blood Urine Nitrite Urine Bilirubin Urine Urobilinogen Ur Leukocyte Esterase Urine Microscopic RBC Urine Microscopic WBC Ur Squamous Epith Cells Urine Mucus Influenza A (Rapid) Negative by naat Influenza B (Rapid) Negative by naat 06/05/17 06/05/17 20:31 22:29 WBC RBC Hgb Hct MCV MCH MCHC RDW Coeff of [place] Plt Count Immature Gran % (Auto) Neut % (Auto) Lymph % (Auto) [place] % (Auto) Eos % (Auto) Baso % (Auto) Immature Gran # (Auto) Neut # Lymph # [place] # Eos # Baso # Puncture Site O2 Saturation ABG pH ABG pCO2 ABG pO2 ABG HCO3 ABG Total CO2 ABG Base Excess Christopher Test FiO2 % Sodium 134 L Potassium 4.0 Chloride 98 Carbon Dioxide 28 Anion Gap 12.0 BUN 15 Creatinine 0.90 Estimated GFR (MDRD) 82.00 BUN/Creatinine Ratio 16.66 Glucose 105 Calcium 8.7 Total Bilirubin 1.5 H AST 27 ALT 29 Alkaline Phosphatase 66 Total Creatine Kinase 77 Troponin I 0.0130 Total Protein 6.9 Albumin 4.0 Globulin 2.9 Albumin/Globulin Ratio 1.38 Urine Color Yellow Urine Clarity Clear Urine pH 7.0 Ur Specific [place] 1.015 Urine Protein Negative Urine Glucose (UA) Negative Urine Ketones Negative Urine Blood Trace-intact Urine Nitrite Negative Urine Bilirubin Negative Urine Urobilinogen >=8.0 Ur Leukocyte Esterase Negative Urine Microscopic RBC 5-10 Urine Microscopic WBC 0-2 Ur Squamous Epith Cells 0-2 Urine Mucus Trace Influenza A (Rapid) Influenza B (Rapid) Orders Category Date Time Status ABG DRAW REQUEST Stat CARDIO 06/05/17 20:15 Ordered EKG-(ED ONLY) Stat CARDIO 06/05/17 20:14 Ordered ED IV/MEDIPORT/POWERPORT .ONCE EMERGENCY 06/05/17 20:13 Active ABG Stat LAB 06/05/17 20:14 Completed BLOOD CULTURE Stat LAB 06/05/17 20:15 Received CBC W/ AUTO DIFF Stat LAB 06/05/17 20:31 Completed COMPREHENSIVE METABOLIC PANEL Stat LAB 06/05/17 20:31 Completed CREATINE KINASE Stat LAB 06/05/17 20:31 Completed MOLECULAR FLU A/B Stat LAB 06/05/17 20:20 Completed TROPONIN I Stat LAB 06/05/17 20:31 Completed URINALYSIS C & S IF INDICATED Stat LAB 06/05/17 22:29 Completed 0.9 % Sodium Chloride [Saline Flush] MEDS 06/05/17 20:13 Ordered 1 syr IVF PRN PRN Ondansetron HCl/Pf [Zofran 4 mg/2 ml] MEDS 06/05/17 20:13 Discontinued 4 mg IVP ONCE STA Pantoprazole Sodium [Protonix IV] MEDS 06/05/17 20:14 Discontinued 40 mg IVP ONCE STA Sodium Chloride 0.9% [Sodium Chloride] 1,000 ml MEDS 06/05/17 20:13 Active IV 100 mls/hr CT ABDOMEN/PELVIS WO CONTRAST Stat RADS 06/05/17 21:[address] CHEST W/O CONTRAST Stat RADS 06/05/17 21:44 Completed Medications Generic Name Dose Route Start Last Admin Trade Name Freq PRN Reason Stop Dose Admin Sodium Chloride 1,000 mls @ 100 mls/hr 06/05/17 20:13 06/05/17 21:16 Sodium Chloride IV 06/06/17 06:12 100 mls/hr .Q10H STA Administration Sodium Chloride 1 syr 06/05/17 20:13 06/05/17 21:16 Saline Flush IVF 1 syr PRN PRN Administration To flush IV Discontinued Medications Generic Name Dose Route Start Last Admin Trade Name Freq PRN Reason Stop Dose Admin Ondansetron HCl 4 mg 06/05/17 20:13 06/05/17 21:23 Zofran 4 Mg/2 Ml IVP 06/05/17 20:14 4 mg ONCE STA Administration Pantoprazole Sodium 40 mg 06/05/17 20:14 06/05/17 21:26 Protonix Iv IVP 06/05/17 20:15 40 mg ONCE STA Administration Vital Signs: Temp Pulse Resp BP Pulse Ox 06/05/17 19:56 99.7 F H 78 20 144/73 H 92 L Departure - Departure Time of Disposition: 23:03 Disposition: ADMITTED INPATIENT Discharge Problem: Gastroenteritis Instructions: Gastroenteritis (ED) Condition: Stable Pt referred to PMD for follow-up: No Allergies/Adverse Reactions: Allergies Penicillins Adverse Reaction (Verified 06/05/17 20:04) Home Medications: Ambulatory Orders Calcium Carb/Vitamin D3/Vit K1 [Calcium + D Soft Chewable Tab] 1 each PO DAILY 11/29/13 Multivitamin 1 cap PO DAILY 11/29/13 Ferrous Sulfate [Iron] 65 mg PO DAILY 10/15/16 Escitalopram Oxalate [Lexapro] 10 mg PO DAILY #30 tablet 10/17/16 Aspirin [Adult Low Dose Aspirin EC] 81 mg PO DAILY 01/20/17 Memantine HCl [Namenda] 10 mg PO BID 01/20/17 Disposition Discussed With: Patient, Family
--- NOTE | 2017-06-05 22:23 | CT ---
Exam: CT of the chest without contrast History: Cough Technique: [address] of the chest without intravascular contrast FINDINGS: The lung windows show no infiltrative opacities. Minor dependent atelectasis. Atheroscler otic calcification of the aorta and coronary arteries. No pathologic lymph node enlargement mediasti num. No acute findings of the chest wall soft tissues or bony thorax. Impression: 1. Minor atelectasis and atherosclerotic vascular changes. No acute findings of the chest otherwise .
--- NOTE | 2017-06-05 22:24 | CT ---
EXAM: CT abdomen pelvis without intravenous contrast 06/05/2017. Sagittal and coronal reformatted i mages obtained HISTORY: Abdominal pain COMPARISON: 01/27/2017 FINDINGS: Small hiatal hernia. Bibasilar atelectasis and/or scarring. The liver shows no acute abnormality. Gallbladder has been removed. The adrenal glands and kidneys show no acute abnormality. The spleen and pancreas show no acute process. There is no bowel obstruction. Unremarkable urinary bladder. No free air or free fluid. No evidence of appendicitis. Diffusely fluid-filled distal small bowel. Multiple air fluid levels. This could relate to enteriti s and/or ileus. There is no transition point to suggest obstruction. There are multiple mildly enlarged mesenteric lymph nodes. This may represent mesenteric adenitis. Chronic degenerative disc disease. No acute osseous abnormality. IMPRESSION: 1. Fluid-filled distal small bowel with multiple air fluid levels. This may represent enteritis and /or ileus. No transition point to suggest obstruction. 2. Multiple mildly enlarged mesenteric lymph nodes. This may represent mesenteric adenitis. 3. Diverticulosis without diverticulitis. 4. Status post cholecystectomy. 5. Small hiatal hernia. 6. Bibasilar atelectasis and/or scarring. 7. Technically limited examination due to the lack of intravenous contrast.
[2017-06-05] MEDS ORDERED: TYLENOL PO PRN (23:04)
[2017-06-05] MEDS ORDERED: SODIUM CHLORIDE 1,000 ML IV SCH (23:30)
[2017-06-05] MEDS: ZOFRAN 4 MG/2 ML IVP SCH (23:47)
[2017-06-05] MEDS ORDERED: FLAGYL 500 MG/100 ML 100 ML IV ONE (23:56)
[2017-06-05] MEDS: FLAGYL 500 MG/100 ML 500 MG in PREMIX 100 ML NS 1 BAG IV SCH (23:58)
[2017-06-06 00:28] VITALS: BMI 21.9
[2017-06-06] MEDS ORDERED: FLAGYL 500 MG/100 ML 100 ML IV ONE (04:04)
[2017-06-06] MEDS: PROTONIX PO SCH ×2 (05:46→17:23)
[2017-06-06] MEDS: ZOFRAN 4 MG/2 ML IVP SCH ×3 (05:47→18:09)
[2017-06-06] MEDS: FLAGYL 500 MG/100 ML 500 MG in PREMIX 100 ML NS 1 BAG IV SCH ×3 (06:38→22:10)
[2017-06-06] MEDS ORDERED: NON-FORMULARY MEDICATION (Simvastatin [Zocor] 20 MG) PO SCH (09:00)
[2017-06-06] MEDS ORDERED: FERROUS SULFATE 65 MG PO SCH (09:00)
[2017-06-06] MEDS ORDERED: NON-FORMULARY MEDICATION (Multivitamin 1 CAP) PO SCH (09:00)
[2017-06-06] MEDS ORDERED: NON-FORMULARY MEDICATION (Calcium Carb/Vitamin D3/Vit K1 [Calcium + D Soft Chewable Tab] 1 PO SCH (09:00)
[2017-06-06] MEDS: LOVENOX SUBCUT SCH (10:20)
[2017-06-06] MEDS: NAMENDA PO SCH ×2 (10:21→22:10)
[2017-06-06] MEDS: ASPIRIN EC PO SCH (10:21)
[2017-06-06] MEDS: ZOCOR PO SCH (10:21)
[2017-06-06] MEDS: FERROUS SULFATE PO SCH (10:21)
[2017-06-06] MEDS: LEXAPRO PO SCH (10:21)
[2017-06-06] MEDS: CALCIUM 500 + VIT D 200 MG TABLET PO SCH (10:21)
[2017-06-06] MEDS: MULTIVITAMIN TABLET PO SCH (10:22)
[2017-06-06] MEDS: ARICEPT PO SCH (10:22)
[2017-06-06] MEDS: SODIUM CHLORIDE 1,000 ML IV SCH (10:39)
[2017-06-07] MEDS: ZOFRAN 4 MG/2 ML IVP SCH ×3 (00:21→11:20)
[2017-06-07] MEDS: FLAGYL 500 MG/100 ML 500 MG in PREMIX 100 ML NS 1 BAG IV SCH ×3 (04:41→21:49)
[2017-06-07] MEDS: PROTONIX PO SCH ×2 (06:10→17:13)
[2017-06-07] MEDS: LOVENOX SUBCUT SCH (08:51)
[2017-06-07] MEDS: ZOCOR PO SCH (08:52)
[2017-06-07] MEDS: NAMENDA PO SCH ×2 (08:52→21:50)
[2017-06-07] MEDS: FERROUS SULFATE PO SCH (08:52)
[2017-06-07] MEDS: MULTIVITAMIN TABLET PO SCH (08:52)
[2017-06-07] MEDS: ASPIRIN EC PO SCH (08:52)
[2017-06-07] MEDS: CALCIUM 500 + VIT D 200 MG TABLET PO SCH (08:52)
[2017-06-07] MEDS: LEXAPRO PO SCH (08:52)
[2017-06-07] MEDS: ARICEPT PO SCH (08:52)
[2017-06-07] MEDS ORDERED: ZOFRAN 4 MG/2 ML IVP PRN (11:21)
[2017-06-07] MEDS: SODIUM CHLORIDE 1,000 ML IV SCH (12:15)
[2017-06-07] MEDS ORDERED: PYRIDOXINE PO PRN (23:20)
[2017-06-07] MEDS ORDERED: MELATONIN PO PRN (23:20)
[2017-06-08] MEDS: FLAGYL 500 MG/100 ML 500 MG in PREMIX 100 ML NS 1 BAG IV SCH ×3 (05:07→20:36)
[2017-06-08] MEDS: PROTONIX PO SCH ×2 (05:49→16:46)
[2017-06-08] MEDS ORDERED: PYRIDOXINE PO PRN (07:30)
[2017-06-08] MEDS ORDERED: MELATONIN PO PRN (07:30)
[2017-06-08] MEDS: LOVENOX SUBCUT SCH (08:29)
[2017-06-08] MEDS: CALCIUM 500 + VIT D 200 MG TABLET PO SCH (08:29)
[2017-06-08] MEDS: MULTIVITAMIN TABLET PO SCH (08:29)
[2017-06-08] MEDS: ARICEPT PO SCH (08:30)
[2017-06-08] MEDS: ZOCOR PO SCH (08:30)
[2017-06-08] MEDS: NAMENDA PO SCH ×2 (08:30→20:36)
[2017-06-08] MEDS: ASPIRIN EC PO SCH (08:30)
[2017-06-08] MEDS: LEXAPRO PO SCH (08:30)
[2017-06-08] MEDS: FERROUS SULFATE PO SCH (08:30)
[2017-06-08] MEDS: K-DUR PO SCH (16:46)
[2017-06-09] MEDS: FLAGYL 500 MG/100 ML 500 MG in PREMIX 100 ML NS 1 BAG IV SCH ×2 (05:19→12:54)
[2017-06-09] MEDS: PROTONIX PO SCH (05:30)
[2017-06-09] MEDS: LOVENOX SUBCUT SCH (08:41)
[2017-06-09] MEDS: ZOCOR PO SCH (08:41)
[2017-06-09] MEDS: ARICEPT PO SCH (08:41)
[2017-06-09] MEDS: ASPIRIN EC PO SCH (08:42)
[2017-06-09] MEDS: CALCIUM 500 + VIT D 200 MG TABLET PO SCH (08:42)
[2017-06-09] MEDS: K-DUR PO SCH (08:42)
[2017-06-09] MEDS: LEXAPRO PO SCH (08:42)
[2017-06-09] MEDS: MULTIVITAMIN TABLET PO SCH (08:42)
[2017-06-09] MEDS: FERROUS SULFATE PO SCH (08:42)
[2017-06-09] MEDS: NAMENDA PO SCH (08:42)
--- NOTE | 2017-06-09 10:42 | PCM.PROG ---
Attending Provider: ATTENDING PROVIDER: Dr. VICKIE AWAN This patient is seen with Oumou Palma, Nurse Practitioner. DATE OF SERVICE: 06/09/17 SUBJECTIVE: This 77 year old WHITE/ M was hospitalized 06/05/17. The patient is lying in bed resting comfortably. The family is ready for long-term placement for PT and rehab. REVIEW OF SYSTEMS: CONSTITUTIONAL:Generalized weakness. No night sweats. No fever or chills. HEENT: Eyes: No visual changes. No eye pain. No eye discharge. ENT: No runny nose. No epistaxis. No sinus pain. No odynophagia. No congestion. RESPIRATORY: No cough, no congestion. No hemoptysis. No shortness of breath. CARDIOVASCULAR: No angina symptoms. No CHF symptoms. No atypical chest pain for CAD. No palpitations. No orthopnea.. GASTROINTESTINAL: No abdominal pain. No nausea or vomiting. No diarrhea or constipation. No hematemesis. No hematochezia. GENITOURINARY: No urgency. No frequency. No dysuria. No hematuria. No obstructive symptoms. No discharge. No pain. No significant abnormal bleeding. MUSCULOSKELETAL: No musculoskeletal pain; no joint swelling. NEUROLOGICAL: Resting comfortably; confused. No headache. No neck pain. No syncope. No seizures. No dizziness. PSYCHIATRIC: Not anxious. No depression. No suicidal thoughts. No homicidal thoughts. SKIN: No rash. No lesions. No wounds. ENDOCRINE: No unexplained weight loss. No weight gain. HEMATOLOGIC/LYMPHATIC: No anemia. No purpura. No petechiae. No prolonged or excessive bleeding. No palpable lymph nodes. PHYSICAL EXAMINATION: GENERAL: The patient is resting comfortably lying in bed in no distress. VITAL SIGNS: Temperature 98.1 F, Pulse 53, Respiratory Rate 18, BP 118/63, Pulse Ox 99% HEENT: Head normocephalic, atraumatic. Eyes: Extraocular muscles are intact. Pupils are equal, round and reactive to light and accommodation. Ears: No lesions. Nose appeared normal. Throat: No exudate or erythema. NECK: Supple. No JVD, no carotid bruit. No lymphadenopathy or thyromegaly. LUNGS: Diminished breath sounds, clear to auscultation. Percussion note normal. Chest symmetrical. HEART: S1, S2, no S3. No murmurs. No cyanosis or clubbing. No ascites. Pulses: Dorsalis pedis and posterior tibial pulses +1 to +2 both sides. ABDOMEN: Soft. Non-tender. Bowel sounds active. No CVA tenderness. No mass felt. EXTREMITIES: No edema. Full range of motion of all extremities, equal. NEUROLOGIC: No focal deficit. Cranial nerves II through XII are grossly intact. No headache, no double vision or headache. SKIN: Not dry. Intact. Turgor-normal. LYMPHATIC: No palpable lymph nodes/no lymphedema. MUSCULOSKELETAL: Normal joints with no swelling. Muscle tone is normal. LAB REVIEW: 06/09/17 04:30 06/09/17 04:30 06/09/17 04:30: Sodium 136, Potassium 3.8, Chloride 103, Carbon Dioxide 27, Anion Gap 9.8, BUN 8, Creatinine 0.76, Estimated GFR (MDRD) 99.00, BUN/ Creatinine Ratio 10.52, Glucose 86, Calcium 8.7, Total Bilirubin 0.8, AST 49 H, ALT 39, Alkaline Phosphatase 58, Total Protein 6.2, Albumin 3.6, Globulin 2.6, Albumin/Globulin Ratio 1.38 06/09/17 04:30: WBC 4.78, RBC 3.70 L, Hgb 11.5 L, Hct 31.7 L, MCV 85.7, MCH 31.1 H, MCHC 36.3 H, RDW Coeff of [place] 12.9, Plt Count 204, Neutrophils % (Manual ) 44.0, Lymphocytes % (Manual) 33.0, Monocytes % (Manual) 6.0, Eosinophils % ( Manual) 5.0, Reactive Lymphocytes 12.0 H, Anisocytosis Not present ASSESSMENT: 1. Acute gastroenteritis improving 2. Dehydration resolved 3. Dementia with behavioral disturbances 4. Generalized weakness PLAN: 1. D/C to [facility] for rehabilitation 2. Protonix twice a day for one month 3. Potassium 20 mEq daily 4. Anticipate long-term placement for PT/OT. Plan and coordination of the patient's care discussed in the presence of Radiologic Therapist and nurse. 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 Awan/Oumou Palma APRN on 06/09/17 ([id number])
--- NOTE | 2017-06-09 10:49 | PN ---
DATE OF SERVICE: 06/08/17 SUBJECTIVE: The patient was hospitalized with dehydration and gastroenteritis. The patient' s condition improved and he was unable to walk but he walked all the halls yesterday. His appetite has improved and his hydration status has improved. The patient's family is thinking about [facility] in [facility] for [facility]. The patient is still agreeable to go there for a couple of weeks for physical therapy for ambulation and making his legs and arms stronger so that he is able to walk. His dementia seems to worsening. Mini mental status showed that he score was 21 or 22 out of 30. The exam was discussed in detail with the . The and son are present in the room. TIME SPENT: More than 30 minutes. Plan and coordination of the patient's care discussed in the presence of nurse. GIGI
--- NOTE | 2017-06-09 11:59 | HP ---
DATE OF SERVICE: 06/06/17 HISTORY OF PRESENT ILLNESS: This is a 77-year-old white male with Alzheimer's dementia. He has significantly declined over the past six months due to dementia. He developed symptoms of gastroenteritis at home on and Thursday with vomiting and diarrhea. He was experiencing extreme weakness and his brought him to the emergency room. PAST MEDICAL HISTORY: Anxiety Depression Dementia Generalized weakness Anemia Dyslipidemia GERD History of hyponatremia Poor appetite Rheumatic fever by history COPD Osteoarthritis PAST SURGICAL HISTORY: Status post cholecystectomy Hiatal hernia REVIEW OF SYSTEMS: CONSTITUTIONAL: Positive for generalized weakness and fatigue. No night sweats. No fever or chills. HEENT: Eyes: No visual changes. No eye pain. No eye discharge. ENT: No runny nose. No epistaxis. No sinus pain. No sore throat. No odynophagia. No ear pain. No congestion. RESPIRATORY: No cough, no congestion. No hemoptysis. No shortness of breath. CARDIOVASCULAR: No angina symptoms. No CHF symptoms. No atypical chest pain for CAD. No palpitations. No orthopnea. GASTROINTESTINAL: Positive for nausea, decreased appetite. No abdominal pain. No vomiting. No diarrhea or constipation. No hematemesis. No hematochezia. GENITOURINARY: No urgency. No frequency. No dysuria. No hematuria. No obstructive symptoms. No discharge. No pain. No significant abnormal bleeding. MUSCULOSKELETAL: Positive for generalized weakness. Unable to walk without assistance. No musculoskeletal pain. No joint swelling. NEUROLOGICAL: Positive for confusion off and on. No headache. No neck pain. No syncope. No seizures. No dizziness. PSYCHIATRIC: Not anxious. No depression. No suicidal thoughts. No homicidal thoughts. SKIN: No rash. No lesions. No wounds. ENDOCRINE: No unexplained weight loss. No weight gain. HEMATOLOGIC/LYMPHATIC: No anemia. No purpura. No petechiae. No prolonged or excessive bleeding. No palpable lymph nodes. PERSONAL/FAMILY/SOCIAL HISTORY: The patient currently resides at home with his . He is a nonsmoker. No alcohol or ilicit drug use. MEDICATIONS: (HOME) Multivitamin one capsule p.o. daily Calcium Carb/Vitamin D3/Vitamin K1 one each p.o. daily Ferrous Sulfate 65 mg p.o. daily Lexapro 10 mg p.o. daily Aspirin 81 mg p.o. daily Namenda 10 mg p.o. b.i.d. Donepezil 10 mg p.o. daily Simvastatin 20 mg p.o. daily Pantoprazole 40 mg p.o. b.i.d. a.c. Melatonin/Pyridoxine 5 mg p.o. bedtime p.r.n. ALLERGIES: PENICILLINS PHYSICAL EXAMINATION: VITAL SIGNS: Temperature 96.4, heart rate 72, respirations 16, BP 116/61, pulse ox 94%. HEENT: Head normocephalic, atraumatic. Eyes: Extraocular muscles are intact. Pupils are equal, round and reactive to light and accommodation. Ears: No lesions. Nose appeared normal. Throat: No exudate or erythema. NECK: Supple. No JVD, no carotid bruit. No lymphadenopathy or thyromegaly. LUNGS: Diminished breath sounds bilaterally. Clear to auscultation. Percussion note normal. Chest symmetrical. HEART: S1, S2, no S3. No murmurs. No cyanosis or clubbing. No ascites. Pulses: Dorsalis pedis and posterior tibial pulses +1 to +2 both sides. ABDOMEN: Soft. No abdominal distention or tenderness. Bowel sounds active. No CVA tenderness. No mass felt. EXTREMITIES: No edema. Full range of motion of all extremities, equal. NEUROLOGIC: Bouts of confusion. Alert and oriented to person however not place or time. No focal deficit. Cranial nerves II through XII are grossly intact. No headache, no double vision or headache. SKIN: Not dry. Intact. Turgor - normal. LYMPHATIC: No palpable lymph nodes/no lymphedema. MUSCULOSKELETAL: Normal joints with no swelling. Muscle tone is normal. LABS: Sodium 135, potassium 3.6, BUN 14, creatinine 0.84, white count 4.82, hemoglobin 11.2, hematocrit 31.8. Platelets 172. ASSESSMENT: 1. GASTROENTERITIS 2. DEHYDRATION 3. DIVERTICULITIS (CT ABD/PELVIS 06/05/17) 4. BIBASILAR ATELECTASIS 5. DYSLIPIDEMIA 6. ANEMIA 7. DEMENTIA 8. ANXIETY/DEPRESSION PLAN: 1. Kidney function has normalized. Will decrease IV fluids to 50 cc/hr of NS. 2. PT/OT consult. 3. CBC, CMP daily. 4. Mini Mental Exam. 5. Protonix 40 mg b.i.d. 6. BRAT diet. 7. Zofran 40 mg IV q.6hr p.r.n. 8. Flagyl 500 mg t.i.d. IV 9. Fall precautions. 10. Will follow closely. 11. Continue home medications. TIME SPENT: More than 70 minutes. MTDD
--- NOTE | 2017-06-09 14:10 | CM.DICTOOL ---
ADMISSION: 06/05/17 23:07 DISCHARGE: 06/09/17 DATE OF SERVICE: 06/09/17 FINAL DIAGNOSIS GASTROENTERITIS, ACUTE DEHYDRATION DIVERTICULOSIS (CT ABD/PELVIS, 06/05/17) BIBASILAR ATELECTASIS (CT CHEST, 06/05/17) COPD DYSLIPIDEMIA ANEMIA HIATAL HERNIA DEMENTIA ANXIETY/DEPRESSION OSTEOARTHRITIS RHEUMATIC FEVER BY HISOTRY CHOLECYSTECTOMY LAST VITALS Temp Pulse Resp BP Pulse Ox 97 F L 53 L 20 127/73 96 06/09/17 09:55 06/09/17 09:55 06/09/17 09:55 06/09/17 09:55 06/09/17 09:55 ACTIVE HOME MEDICATIONS Aspirin (Aspirin Ec) 81 mg PO DAILYWM [facility] Last Admin: 06/09/17 08:42 Dose: 81 mg Calcium/Vitamin D (Calcium 500 + Vit D 200 Mg Tablet) 1 each PO DAILY [facility] Last Admin: 06/09/17 08:42 Dose: 1 each Donepezil HCl (Aricept) 10 mg PO DAILY [facility] Last Admin: 06/09/17 08:41 Dose: 10 mg Escitalopram Oxalate (Lexapro) 10 mg PO DAILY [facility] Last Admin: 06/09/17 08:42 Dose: 10 mg Ferrous Sulfate (Ferrous Sulfate) 324 mg PO DAILY [facility] Last Admin: 06/09/17 08:42 Dose: 324 mg Memantine (Namenda) 10 mg PO BID [facility] Last Admin: 06/09/17 08:42 Dose: 10 mg Multivitamins (Multivitamin Tablet) 1 tab PO DAILY [facility] Last Admin: 06/09/17 08:42 Dose: 1 tab Melatonin/Pyridoxine [Melatonin 5 Mg Tablet] 5 mg PO BEDTIME PRN PRN Reason: sleep Pantoprazole Sodium (Protonix) 40 mg PO BIDAC FOR 30 DAYS [facility] Last Admin: 06/09/17 05:30 Dose: 40 mg Potassium Chloride (K-Dur) 20 meq PO BID [facility] ([facility]) Last Admin: 06/09/17 08:42 Dose: 20 meq Simvastatin (Zocor) 20 mg PO DAILY [facility] Last Admin: 06/09/17 08:41 Dose: 20 mg ALLERGIES Penicillins Adverse Reaction (Verified 06/05/17 20:04) NEW PRESCRIPTIONS: K-DUR 20 MEQ PO BIDWM SMOKING: NEVER A SMOKER LAB REVIEW: 06/09/17 04:30 06/09/17 04:30 06/09/17 04:30: Sodium 136, Potassium 3.8, Chloride 103, Carbon Dioxide 27, Anion Gap 9.8, BUN 8, Creatinine 0.76, Estimated GFR (MDRD) 99.00, BUN/ Creatinine Ratio 10.52, Glucose 86, Calcium 8.7, Total Bilirubin 0.8, AST 49 H, ALT 39, Alkaline Phosphatase 58, Total Protein 6.2, Albumin 3.6, Globulin 2.6, Albumin/Globulin Ratio 1.38 06/09/17 04:30: WBC 4.78, RBC 3.70 L, Hgb 11.5 L, Hct 31.7 L, MCV 85.7, MCH 31.1 H, MCHC 36.3 H, RDW Coeff of [place] 12.9, Plt Count 204, Neutrophils % (Manual ) 44.0, Lymphocytes % (Manual) 33.0, Monocytes % (Manual) 6.0, Eosinophils % ( Manual) 5.0, Reactive Lymphocytes 12.0 H, Anisocytosis Not present PLAN: DISCHARGE TO [facility] TODAY DR. 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 HE IS COOPERATIVE FOR CARE. HE REQUIRES ASSISTANCE WITH ADL'S. HE HAS A CANE AT HOME TO ASSIST WITH AMBULATION. HIS SPOUSE ALSO ASSISTS WITH AMBULATION WELL. HE AND MS. PEREZ DESIRE SHORT TERM ADMISSION TO [facility]. THE [facility] HAS ACCEPTED HIM FOR ADMISSION THERE. [facility] HAS COMPLETED THE GROUP HOME SCREENING. WE WILL FOLLOW MR. PEREZ THERE DURING USUAL GROUP HOME ROUNDS IN ONE WEEK. THE SKIN TURGOR IS INTACT AND WITHOUT DECUBITUS ULCERS AT DISCHARGE. HYDRATION AND NUTRITIONAL STATUS ARE GOOD. MR. PEREZ HAS COMPLETED A SHORT COURSE OF FLAGYL FOR HIS GASTROENTERITIS DURING THIS HOSPITALIZATION. HE IS EATING AND TAKING LIQUIDS WELL. HIS INFLUENZA A AND B ARE BOTH NEGATIVE. BLOOD C/S IS ALSO NEGATIVE. AND MRS. PEREZ BOTH ARE AWARE AND AGREEABLE FOR TODAY'S DISCHARGE PLANS. MS. PEREZ WILL PROVIDE TRANSPORTATION TO THE [facility] TODAY. CURRENT CODE STATUS FULL CODE TELLY OJEDA APRN VICKIE AWAN M.D.
--- NOTE | 2017-06-09 14:12 | PN ---
DATE OF SERVICE: 06/07/17 SUBJECTIVE: 70 year old white male hospitalized with dehydration, gastroenteritis and dementia. The patient is weak and inability to walk off and on. His strength comes and goes there is low deterioration of his dementia according to the . His mini mental status was 21 out of 30 this morning which ranks him to mild Alzheimer's. The patient is functional to some extent. We will do routine labs. PHYSICAL EXAMINATION: HEENT: Head normocephalic, atraumatic. Eyes: Extraocular muscles are intact. Pupils are equal, round and reactive to light and accommodation. Ears: No lesions. Nose appeared normal. Throat: No exudate or erythema. NECK: Supple. No JVD, no carotid bruit. No lymphadenopathy or thyromegaly. LUNGS: Clear to auscultation. Percussion note normal. Chest symmetrical. HEART: S1, S2, no S3. No murmurs. No cyanosis or clubbing. No ascites. Pulses: Dorsalis pedis and posterior tibial pulses +1 to +2 both sides. ABDOMEN: Soft. Nontender. Bowel sounds active. No CVA tenderness. No mass felt. No gastroenteritis anymore. EXTREMITIES: No edema. Full range of motion of all extremities, equal. NEUROLOGIC: No focal deficit. Cranial nerves II through XII are grossly intact. No headache, no double vision or headache. SKIN: Not dry. Intact. Turgor - normal. Hydration status has improved. LYMPHATIC: No palpable lymph nodes/no lymphedema. MUSCULOSKELETAL: Normal joints with no swelling. Muscle tone is normal. The patient's who is power of trial attorney for health has expressed the view that the patient needs to be in the retirement for 2-3 weeks for rehab. I talked to the patient about it and he accepted the idea. After the June 08 we will give referral to evaluate him for physical therapy. CONDITION: Improved, stable TIME SPENT: More than 30 minutes. Plan and coordination of the patient's care discussed in the presence of nurse. GIGI
[2017-06-09 14:25] VITALS: BP 115/65; TEMP 97.3
--- NOTE | 2017-06-19 13:08 | DS ---
DATE OF SERVICE: 06/09/17 FINAL DIAGNOSIS: 1. GASTROENTERITIS, ACUTE 2. DEHYDRATION 3. DIVERTICULOSIS PER CT ABD/PELVIS 06/05/17 4. BIBASILAR ATELECTASIS PER CT CHEST 06/05/17 5. CHRONIC OBSTRUCTIVE PULMONARY DISEASE 6. DYSLIPIDEMIA 7. ANEMIA 8. HIATAL HERNIA 9. DEMENTIA 10. ANXIETY/DEPRESSION 11. OSTEOARTHRITIS 12. RHEUMATIC FEVER BY HISTORY 13. CHOLECYSTECTOMY VITAL SIGNS AT DISCHARGE: Temperature 97, pulse 53, respiratory rate 20, blood pressure 127/73, pulse ox 96%. PLAN: 1. Discharge the patient to [facility] today. 2. Dr. Pearson or Oumou Palma APRN will continue to follow the patient during his stay at the [facility]. 3. Resume the [facility] medications as per list provided by the nursing staff. 4. Please note the change in Protonix to 40 mg twice daily in the morning times 30 days. 5. CBC with differential and CMP in one week and then every 3 months. 6. Lipid panel every 6 months. 7. Vital signs daily. MEDICATIONS AT DISCHARGE: Aspirin 81 mg daily Calcium with Vitamin D daily Aricept 10 mg daily Lexapro 10 mg daily Ferrous sulfate 324 mg daily Namenda 10 mg twice daily Multivitamin daily Melatonin 5 mg at bedtime Protonix 40 mg twice daily for 30 days Zocor 20 mg daily NEW PRESCRIPTIONS: K-Dur 20 mEq twice daily ALLERGIES: Penicillin DIET INSTRUCTIONS: Regular, banana with breakfast. Second Shift Supervisor please consult to provide optimal nutritional needs for the patient. ACTIVITY: May participate in [facility] activities as tolerated. PT/OT please evaluate and treat as indicated. Up to the dining room for meals as tolerated. SMOKING: Never a smoker. LABS: 1. CBC with differential and CMP in one week, then every 3 months. 2. Lipid panel every 6 months. HOSPITAL COURSE: This is a 77 year old white male who was admitted through the emergency room over the weekend after experiencing nausea, vomiting and diarrhea at home for the past two days. He was admitted for increased confusion, mild dehydration. He was admitted and placed on D5 half normal saline at 75cc an hour and started on Protonix 40mg twice a day IV along with Zofran 4mg Q 6 hour IV. After being admitted he did experience any vomiting. He has decreased appetite the first 36 hours. He slowly advanced his diet and has been tolerating that well. He has been declining with Dementia over the past several months. After becoming ill he was unable to get around and unable to walk even with the assistance of his walker. The family had discussed and decided that they would like try to go to [facility] for physical therapy and occupational therapy. An MMSE was done after admission and he scored a 21 out of 30. He is on Namenda and Aricept for Dementia. Over the past 24 hours he has not had any loose stools. His sodium has been normal. Today of day of discharge his labs are stable, sodium 136, potassium 3.8, BUN 8, creatinine 0.76, WBC 4.78, hgb 11.5, hct 31.7, plt count 204. We will not send him to the [facility] on any Flagyl as it seems that his gastritis has resolved. CT of the abdomen showed no diverticulitis just inflammatory process associated with gastritis. We will continue him on Protonix 40mg PO twice a day for the next month and he will continue all his home medications. His vital signs have been stable as well as his telemetry. Today on day of discharge; Temperature 98.1, heart rate 53, respirations 18, blood pressure 118/63 and pulse ox 99%. We will discharge him to [facility] and we will follow up with him there. TIME SPENT: More than 60 minutes. GIGI
--- NOTE | 2017-06-28 13:32 | PN ---
CODING FOR BILLING 06/05/17 LEVEL 5 06/06/17 INTERMEDIATE 06/07/17 INTERMEDIATE 06/08/17 BRIEF 0/06/09/17 DISCHARGE MTDD
--- NOTE | 2017-06-28 14:32 | PN ---
DATE OF SERVICE: 06/09/17 SUBJECTIVE: 77-year-old white male hospitalized with dehydration, acute gastroenteritis and dementia. The patient's condition has improved. He is up and about. The patient had agreed to be discharged to the assisted for rehab for physical therapy. The patient will be discharged. The patient was seen and examined with nurse practitioner. TIME SPENT: More than 30 minutes. Plan and coordination of the patient's care discussed in the presence of nurse. GIGI
--- NOTE | 2017-06-30 06:55 | PN ---
DATE OF SERVICE: 06/06/17 SUBJECTIVE: This is a 77-year-old male hospitalized with flu-type of symptoms. He has nausea and vomiting. The patient has been on IV fluids. Dehydration seems to have improved. Appetite is somewhat better. REVIEW OF SYSTEMS: CONSTITUTIONAL: No night sweats. No fatigue, malaise, lethargy. No fever or chills. HEENT: Eyes: No visual changes. No eye pain. No eye discharge. ENT: No runny nose. No epistaxis. No sinus pain. No sore throat. No odynophagia. No congestion. RESPIRATORY: Mild cough, no congestion. No hemoptysis. No shortness of breath. No PND. CARDIOVASCULAR: No angina symptoms. No CHF symptoms. No atypical chest pain for CAD. No palpitations. No orthopnea. GASTROINTESTINAL: Appetite is somewhat better. No abdominal pain. No nausea or vomiting. No diarrhea or constipation. No hematemesis. No hematochezia. GENITOURINARY: No urgency. No frequency. No dysuria. No hematuria. No obstructive symptoms. No discharge. No pain. No significant abnormal bleeding. MUSCULOSKELETAL: No musculoskeletal pain; no joint swelling. NEUROLOGICAL: No headache. No neck pain. No syncope. No seizures. No dizziness. PSYCHIATRIC: Not anxious. No depression. No suicidal thoughts. No homicidal thoughts. SKIN: No rash. No lesions. No wounds. ENDOCRINE: No unexplained weight loss. No weight gain. HEMATOLOGIC/LYMPHATIC: No anemia. No purpura. No petechiae. No prolonged or excessive bleeding. No palpable lymph nodes. PHYSICAL EXAMINATION: HEENT: Head normocephalic, atraumatic. Eyes: Extraocular muscles are intact. Pupils are equal, round and reactive to light and accommodation. Ears: No lesions. Nose appeared normal. Throat: No exudate or erythema. NECK: Supple. No JVD, no carotid bruit. No lymphadenopathy or thyromegaly. LUNGS: Clear to auscultation. Percussion note normal. Chest symmetrical. HEART: S1, S2, no S3. No murmurs. No cyanosis or clubbing. No ascites. Pulses: Dorsalis pedis and posterior tibial pulses +1 to +2 both sides. ABDOMEN: Soft. Nontender. Bowel sounds active. No CVA tenderness. No mass felt. EXTREMITIES: No edema. Full range of motion of all extremities, equal. NEUROLOGIC: No focal deficit. Cranial nerves II through XII are grossly intact. No headache, no double vision or headache. SKIN: Not dry. Intact. Turgor - poor. LYMPHATIC: No palpable lymph nodes/no lymphedema. MUSCULOSKELETAL: Normal joints with no swelling. Muscle tone is normal. ASSESSMENT: 1. GASTROENTERITIS 2. DEHYDRATION 3. DIVERTICULOSIS (CT ABDOMEN/PELVIS 06/05/17) 4. BIBASILAR ATELECTASIS PLAN: 1. Dietary consult 2. MMSE DISCUSSION: The patient's had called me at home the day prior and she was instructed to take patient to the emergency room because he was having nausea, vomiting and difficulty walking. She, at that time, expressed the view that because of the patient's dementia, it has become difficult to take care of him at home and would like to consider putting him in the long term. The patient was seen and examined with nurse practitioner. TIME SPENT: More than 30 minutes. Plan and coordination of the patient's care discussed in the presence of nurse. GIGI
== END 2017-06-09 14:15 | DRG 392 ==
LOC: ED 19:54 → MEDSURG B 23:07
PROVIDERS: ADMIT Internal Medicine; ATTEND Internal Medicine
DX: K52.9 Noninfective gastroenteritis and colitis, unspecified (principal); J98.11 Atelectasis; F02.81 Dementia in other diseases classified elsewhere, unspecified severity, with behavioral disturbance; E86.0 Dehydration; K57.30 Diverticulosis of large intestine without perforation or abscess without bleeding; J44.9 Chronic obstructive pulmonary disease, unspecified; E78.5 Hyperlipidemia, unspecified; D64.9 Anemia, unspecified; K44.9 Diaphragmatic hernia without obstruction or gangrene; G30.8 Other Alzheimer's disease; F41.8 Other specified anxiety disorders; M19.90 Unspecified osteoarthritis, unspecified site; R41.82 Altered mental status, unspecified; Z86.19 Personal history of other infectious and parasitic diseases; Z90.49 Acquired absence of other specified parts of digestive tract; Z79.899 Other long term (current) drug therapy
CPT/HCPCS: 36415; 80053; 81001; 82550; 82553; 82803; 84484; 85007; 85025; 87040; 87502; 93005; 93010; 96361; 96365; 96366; 96375; 97802; 99284

== ENCOUNTER 2017-06-24 16:19 | Inpatient (IN) | payer OTHER ==
[2017-06-24 16:23] VITALS: BMI 22.4
--- NOTE | 2017-06-24 17:08 | CT ---
EXAM: CT of the chest without contrast. HISTORY: Cough. PROCEDURE: Contiguous axial CT images of the chest without contrast with coronal and sagittal reform ats. FINDINGS: Comparison made with CT chest of 06/05/2017. The heart is within normal limits in size. T he thoracic aorta is within normal limits in diameter. There are calcified mediastinal and hilar lym ph nodes and calcified granulomas in the right lung. There is minimal bilateral atelectasis and/or p neumonia. Redemonstrated is a small hernia in the right posterior lateral chest wall measuring 2.7 x 1.2 cm. There are degenerative changes in the spine. The adrenal glands and visualized portion of the liver are normal in appearance. There is a small hiatal hernia. Impression: Minimal bilateral atelectasis and/or pneumonia. Chronic small hernia in the right posterior lateral chest wall as described. Small hiatal hernia.
--- NOTE | 2017-06-24 18:05 | ED.PDOC ---
General ED Provider: Dr. LUIZ GAINES Chief Complaint: Respiratory Complaint Stated Complaint: cough, low grade fever , weakness Time Seen by Physician: 04:30 (seen) Mode of Arrival: Wheelchair Information Source: Family, Prison Exam Limitations: No limitations Primary Care Provider: VICKIE COFFEY Nursing and Triage Documentation Reviewed and Agree: Yes Reviewed sepsis parameters & appropriate labs ordered?: Yes System Inflammatory Response Syndrome: Not Applicable Sepsis Protocol: For patient's 13 years and over: Temp is 96.8 and below OR 101 and greater Pulse >90 BPM Resp >20/minute Acutely Altered Mental Status Are patient's symptoms suggestive of a new infection, such as: -Pneumonia -Skin, Soft Tissue -Endocarditis -UTI -Bone, Joint Infection -Implantable Device -Acute Abdominal Infection -Wound Infection -Meningitis -Blood Stream Catheter Infection -Unknown System Inflammatory Response Syndrome: Not Applicable Review of Systems - Review Of Systems Constitutional: Reports: Malaise, Weakness, Loss of appetite Eyes: Reports: No symptoms Ears, Nose, Mouth, Throat: Reports: No symptoms Respiratory: Reports: Cough Cardiac: Reports: No symptoms GI: Reports: No symptoms : Reports: No symptoms Musculoskeletal: Reports: No symptoms Skin: Reports: No symptoms Neurological: Reports: No symptoms Endocrine: Reports: No symptoms Hematologic/Lymphatic: Reports: No symptoms All Other Systems: Reviewed and Negative Past Medical History - Past Medical History Previously Healthy: Yes Endocrine: Reports: Dyslipidemia Cardiovascular: Reports: None Respiratory: Reports: None Hematological: Reports: None Gastrointestinal: Reports: GERD Genitourinary: Reports: None Neuro/Psych: Reports: None Musculoskeletal: Reports: None Cancer: Reports: None - Surgical History General Surgical History: Reports: None - Family History Family History: Reports: None - Social History Smoking Status: Never smoker Hx Substance Use: No Alcohol Screening: None Physical Exam - Physical Exam Appearance: Ill-appearing Ill-appearing: Mild Pain Distress: Mild Eyes: JOHANN, EOMI, Conjunctiva clear ENT: Ears normal, Nose normal, Oropharynx normal Respiratory: Rhonchi Cardiovascular: RRR, Pulses normal, No rub, No murmur GI/: Soft, Nontender, No masses, Bowel sounds normal, No Organomegaly Musculoskeletal: Normal strength, ROM intact, No edema, No calf tenderness Skin: Warm, Dry, Normal color Neurological: Sensation intact, Motor intact, Reflexes intact, Cranial nerves intact, Alert, Oriented Psychiatric: Affect appropriate, Mood appropriate Physician Notification - Case Discussed Physician Notified: [email or web address] Time of Notification: 18:09 Admit To: Inpatient Critical Care Note - Critical Care Note Total Time (mins): 0 Course - Course Hematology/Chemistry: 06/24/17 17:05 06/24/17 17:05 Orders, Labs, Meds: Lab Review 06/24/17 06/24/17 06/24/17 17:05 17:05 17:05 WBC 9.09 RBC 3.32 L Hgb 12.6 L Hct 29.5 L MCV 88.9 MCH 38.0 H MCHC 42.7 H RDW Coeff of [place] 13.2 Plt Count 184 Immature Gran % (Auto) 0.2 Neut % (Auto) 65.3 Lymph % (Auto) 23.9 [place] % (Auto) 7.6 Eos % (Auto) 2.6 Baso % (Auto) 0.4 Immature Gran # (Auto) 0.0 Neut # 5.9 Lymph # 2.2 [place] # 0.7 Eos # 0.2 Baso # 0.0 Sodium 123 L Potassium 3.9 Chloride 88 L Carbon Dioxide 30 Anion Gap 8.9 BUN 9 Creatinine 0.70 Estimated GFR (MDRD) 109.00 BUN/Creatinine Ratio 12.85 Glucose 106 Calcium 8.8 Total Bilirubin 1.3 H AST 24 ALT 32 Alkaline Phosphatase 92 Total Creatine Kinase 98 Troponin I < 0.0100 Total Protein 7.0 Albumin 4.3 Globulin 2.7 Albumin/Globulin Ratio 1.59 Procalcitonin 0.26 Influenza A (Rapid) Influenza B (Rapid) 06/24/17 17:05 WBC RBC Hgb Hct MCV MCH MCHC RDW Coeff of [place] Plt Count Immature Gran % (Auto) Neut % (Auto) Lymph % (Auto) [place] % (Auto) Eos % (Auto) Baso % (Auto) Immature Gran # (Auto) Neut # Lymph # [place] # Eos # Baso # Sodium Potassium Chloride Carbon Dioxide Anion Gap BUN Creatinine Estimated GFR (MDRD) BUN/Creatinine Ratio Glucose Calcium Total Bilirubin AST ALT Alkaline Phosphatase Total Creatine Kinase Troponin I Total Protein Albumin Globulin Albumin/Globulin Ratio Procalcitonin Influenza A (Rapid) Negative by naat Influenza B (Rapid) Negative by naat Orders Category Date Time Status EKG-(ED ONLY) Stat CARDIO 06/24/17 16:40 Completed BLOOD CULTURE Stat LAB 06/24/17 17:05 Received CBC W/ AUTO DIFF Stat LAB 06/24/17 17:05 Completed COMPREHENSIVE METABOLIC PANEL Stat LAB 06/24/17 17:05 Completed CREATINE KINASE Stat LAB 06/24/17 17:05 Completed FLU A/B MOLECULAR Stat LAB 06/24/17 17:05 Completed LACTIC ACID Stat LAB 06/24/17 17:05 Received MOLECULAR GROUP A STREP Stat LAB 06/24/17 17:05 Completed PROCALCITONIN Stat LAB 06/24/17 17:05 Completed TROPONIN I Stat LAB 06/24/17 17:05 Completed URINALYSIS C & S IF INDICATED Stat LAB 06/24/17 16:[address] CHEST W/O CONTRAST Stat RADS 06/24/17 16:42 Completed Vital Signs: Temp Pulse Resp BP Pulse Ox 06/24/17 16:19 98.1 F 68 20 103/64 94 L Departure - Departure Time of Disposition: 18:09 Disposition: ADMITTED INPATIENT Discharge Problem: Hyponatremia Instructions: Hyponatremia (ED) Condition: Good Pt referred to PMD for follow-up: Yes IPMP verified?: Yes Allergies/Adverse Reactions: Allergies Penicillins Adverse Reaction (Verified 06/24/17 16:25) Home Medications: Ambulatory Orders Calcium Carb/Vitamin D3/Vit K1 [Calcium + D Soft Chewable Tab] 1 each PO DAILY 11/29/13 Multivitamin 1 cap PO DAILY 11/29/13 Ferrous Sulfate [Iron] 65 mg PO DAILY 10/15/16 Escitalopram Oxalate [Lexapro] 10 mg PO DAILY #30 tablet 10/17/16 Aspirin [Adult Low Dose Aspirin EC] 81 mg PO DAILY 01/20/17 Memantine HCl [Namenda] 10 mg PO BID 01/20/17 Potassium Chloride [K-Dur] 20 meq PO BID #60 tab 06/09/17 Acetaminophen 650 mg PO Q4HR PRN 06/24/17 Guaifenesin/Codeine Phosphate [Robitussin AC Syrup] 10 ml PO Q4H PRN 06/24/17 Melatonin 6 mg PO BEDTIME 06/24/17 Omeprazole 20 mg PO DAILY 06/24/17
[2017-06-24] MEDS ORDERED: SOLU-MEDROL 125 MG IVP STA (18:12)
[2017-06-24] MEDS ORDERED: ROCEPHIN ONE (19:01)
[2017-06-24] MEDS: ROCEPHIN 1 GM in SODIUM CHLORIDE 50 ML IV SCH (19:04)
[2017-06-24] MEDS: SODIUM CHLORIDE 1,000 ML IV SCH (20:27)
[2017-06-24] MEDS ORDERED: SOLU-MEDROL 40 MG ONE (23:40)
[2017-06-24] MEDS: SOLU-MEDROL 40 MG IVP SCH (23:44)
[2017-06-24] MEDS: DUONEB NEB SCH (23:48)
[2017-06-25] MEDS: DUONEB NEB SCH ×4 (04:00→22:12)
[2017-06-25] MEDS ORDERED: SOLU-MEDROL 40 MG ONE (06:12)
[2017-06-25] MEDS: SOLU-MEDROL 40 MG IVP SCH (06:15)
[2017-06-25] MEDS: SODIUM CHLORIDE 1,000 ML IV SCH ×2 (06:15→16:38)
[2017-06-25] MEDS ORDERED: TYLENOL PO PRN (07:16)
[2017-06-25] MEDS ORDERED: ROBITUSSIN AC SYRUP PO PRN (07:16)
[2017-06-25] MEDS: ARICEPT PO SCH (08:23)
[2017-06-25] MEDS: CALCIUM 500 + VIT D 200 MG TABLET PO SCH (08:23)
[2017-06-25] MEDS: LEXAPRO PO SCH (08:24)
[2017-06-25] MEDS: MULTIVITAMIN TABLET PO SCH (08:24)
[2017-06-25] MEDS: NAMENDA PO SCH ×2 (08:24→21:41)
[2017-06-25] MEDS: PRILOSEC PO SCH (08:25)
[2017-06-25] MEDS: K-DUR PO SCH ×2 (08:25→21:41)
[2017-06-25] MEDS: ASPIRIN EC PO SCH (08:25)
[2017-06-25] MEDS: ROCEPHIN 1 GM in SODIUM CHLORIDE 50 ML IV SCH ×2 (08:32→13:15)
[2017-06-25] MEDS ORDERED: NON-FORMULARY MEDICATION (Multivitamin 1 CAP) PO SCH (09:00)
[2017-06-25] MEDS ORDERED: NON-FORMULARY MEDICATION (Calcium Carb/Vitamin D3/Vit K1 [Calcium + D Soft Chewable Tab] 1 PO SCH (09:00)
[2017-06-25] MEDS: SOLU-MEDROL 125 MG IVP SCH ×3 (11:36→23:09)
[2017-06-25] MEDS: MELATONIN 6 MG PO SCH (21:42)
[2017-06-25] MEDS ORDERED: HALDOL IM ONE (23:30)
[2017-06-25] MEDS ORDERED: HALDOL ONE (23:33)
[2017-06-26] MEDS: SODIUM CHLORIDE 1,000 ML IV SCH ×2 (02:40→18:22)
[2017-06-26] MEDS: DUONEB NEB SCH ×4 (04:40→23:20)
[2017-06-26] MEDS: SOLU-MEDROL 125 MG IVP SCH ×3 (05:44→21:14)
[2017-06-26] MEDS: PRILOSEC PO SCH (05:49)
[2017-06-26] MEDS ORDERED: FERROUS SULFATE 65 MG PO SCH (09:00)
[2017-06-26] MEDS: CALCIUM 500 + VIT D 200 MG TABLET PO SCH (09:16)
[2017-06-26] MEDS: ARICEPT PO SCH (09:16)
[2017-06-26] MEDS: K-DUR PO SCH ×2 (09:16→21:14)
[2017-06-26] MEDS: ROCEPHIN 1 GM in SODIUM CHLORIDE 50 ML IV SCH (09:16)
[2017-06-26] MEDS: ASPIRIN EC PO SCH (09:16)
[2017-06-26] MEDS: MULTIVITAMIN TABLET PO SCH (09:16)
[2017-06-26] MEDS: FERROUS SULFATE PO SCH (09:17)
[2017-06-26] MEDS: LEXAPRO PO SCH (09:17)
[2017-06-26] MEDS: NAMENDA PO SCH ×2 (09:17→21:14)
[2017-06-26] MEDS: ATIVAN PO SCH ×2 (09:28→16:25)
--- NOTE | 2017-06-26 10:30 | PCM.PROG ---
Attending Provider: ATTENDING PROVIDER: Dr. VICKIE AWAN This patient is seen with Oumou Palma, Nurse Practitioner. DATE OF SERVICE: 06/26/17 SUBJECTIVE: This 77 year old WHITE/ M was hospitalized 06/25/17. The patient is lying in bed, alert but confused this morning. He is agitated. He was extremely confused last night. REVIEW OF SYSTEMS: CONSTITUTIONAL: Weakness. No night sweats. No fever or chills. HEENT: Eyes: No visual changes. No eye pain. No eye discharge. ENT: No runny nose. No epistaxis. No sinus pain. No odynophagia. No congestion. RESPIRATORY: No cough, no congestion. No hemoptysis. No shortness of breath. CARDIOVASCULAR: No angina symptoms. No CHF symptoms. No atypical chest pain for CAD. No palpitations. No orthopnea.. GASTROINTESTINAL: No abdominal pain. No nausea or vomiting. No diarrhea or constipation. No hematemesis. No hematochezia. GENITOURINARY: No urgency. No frequency. No dysuria. No hematuria. No obstructive symptoms. No discharge. No pain. No significant abnormal bleeding. MUSCULOSKELETAL: No musculoskeletal pain; no joint swelling. NEUROLOGICAL: Awake, confused. No headache. No neck pain. No syncope. No seizures. No dizziness. PSYCHIATRIC: Anxious. No depression. No suicidal thoughts. No homicidal thoughts. SKIN: No rash. No lesions. No wounds. ENDOCRINE: No unexplained weight loss. No weight gain. HEMATOLOGIC/LYMPHATIC: No anemia. No purpura. No petechiae. No prolonged or excessive bleeding. No palpable lymph nodes. PHYSICAL EXAMINATION: GENERAL: The patient is awake, alert, oriented to person lying in bed in no distress. VITAL SIGNS: Temperature 97.2 F, Pulse 62, Respiratory Rate 20, BP 107/52, Pulse Ox 96% HEENT: Head normocephalic, atraumatic. Eyes: Extraocular muscles are intact. Pupils are equal, round and reactive to light and accommodation. Ears: No lesions. Nose appeared normal. Throat: No exudate or erythema. NECK: Supple. No JVD, no carotid bruit. No lymphadenopathy or thyromegaly. LUNGS: Diminished breath sounds bilaterally. Clear to auscultation. Percussion note normal. Chest symmetrical. HEART: S1, S2, no S3. No murmurs. No cyanosis or clubbing. No ascites. Pulses: Dorsalis pedis and posterior tibial pulses +1 to +2 both sides. ABDOMEN: Soft. Non-tender. Bowel sounds active. No CVA tenderness. No mass felt. EXTREMITIES: No edema. Full range of motion of all extremities, equal. NEUROLOGIC: No focal deficit. Cranial nerves II through XII are grossly intact. No headache, no double vision or headache. SKIN: Not dry. Intact. Turgor-normal. LYMPHATIC: No palpable lymph nodes/no lymphedema. MUSCULOSKELETAL: Normal joints with no swelling. Muscle tone is normal. LAB REVIEW: 06/26/17 05:30 06/26/17 05:30 06/26/17 05:30: Sodium 133 L, Potassium 3.8, Chloride 103, Carbon Dioxide 21 L, Anion Gap 12.8, BUN 14, Creatinine 0.78, Estimated GFR (MDRD) 96.00, BUN/ Creatinine Ratio 17.94, Glucose 160 H, Calcium 8.9, Total Bilirubin 0.5, AST 16 , ALT 28, Alkaline Phosphatase 68 D, Total Protein 6.4, Albumin 3.4, Globulin 3.0, Albumin/Globulin Ratio 1.13 06/26/17 05:30: WBC 7.71, RBC 3.46 L, Hgb 10.7 L, Hct 30.0 L D, MCV 86.7, MCH 30.9, MCHC 35.7 H, RDW Coeff of [place] 13.6, Plt Count 185, Immature Gran % (Auto) 0.9, Neut % (Auto) 77.1, Lymph % (Auto) 16.6, [place] % (Auto) 5.3, Eos % (Auto) 0.0, Baso % (Auto) 0.1, Immature Gran # (Auto) 0.1, Neut # 5.9, Lymph # 1.3, [place] # 0.4, Eos # 0.0, Baso # 0.0 ASSESSMENT: 1. BIBASILAR PNEUMONIA VS ATELECTASIS 2. DEMENTIA WITH BEHAVIORAL DISTURBANCES 3. HYPONATREMIA 4. HYPOTENSION PLAN: 1. Ativan 1 mg p.o. b.i.d. 2. Decrease Solu-Nedrol 80 mg IV q.12 Plan and coordination of the patient's care discussed in the presence of Predatory Animal Trapper and nurse. CONDITION: Stable SCRIBED BY: PEG GREENWOOD Research Spec scribed while in presence of service performed by Dr. Awan/Oumou Palma APRN on 06/26/17 ([id number])
--- NOTE | 2017-06-26 16:43 | RS.PTINEVL ---
Subjective - Patient information Date of Evaluation: 06/26/17 Date of Arrival on Unit: 06/25/17 Admitted From:: Intermediate Diagnosis: pneumonia, dementia Usual Living Arrangement: Intermediate Living Arrangement Comments: pt states that he has PT at the shelter 3-4 days per week. Medical History: COPD, Dementia, Arthritis Medical History Comments:: hiatal hernia, hyponatremia, hypotension, anxiety. LATEX ALLERGY?: No Surgical History: Cholecystectomy Medications: see chart Subjective Information/ Patient Comments:: pt's reports pt walks with therapy at the shelter. would like PT to work with patient while in the hospital so he doesn't lose ability to walk. - Level of function Abilities prior to this admission: pt requires assist of 2 at the shelter. Current Level of Function: Dependent Current Equipment Used at Home: cane Interventions - Objective Observation: pt answers to name, difficulty following commands, Range of Motion - ROM Right Upper Extremity AROM: WFL's Left Upper Extremity AROM: WFL's Right Lower Extremity AROM: WFL's Left Lower Extremity AROM: WFL's Muscle Strength - Muscle Strength Right Upper Extremity Strength: Mild Weakness (Difficult to MMT due to cogntive deficits, pt atleast 3/5 as noted by ROM) Left Upper Extremity Strength: Mild Weakness (Difficult to MMT due to cogntive deficits, pt atleast 3/5 as noted by ROM) Right Lower Extremity Strength: Mild Weakness (Difficult to MMT due to cognitive issues. pt able to move LE through ROM atleast 3/5) Left Lower Extremity Strength: Mild Weakness (Difficult to MMT due to cognitive issues. pt able to move LE through ROM atleast 3/5) Sensation - Sensation Right Upper Extremity Sensation: Intact/Normal Left Upper Extremity Sensation: Intact/Normal Right Lower Extremity Sensation: Intact/Normal Left Lower Extremity Sensation: Intact/Normal Palpation Palpation Findings: None/Normal Balance - Sitting Balance and Reactions Static Sitting Balance: Poor Dynamic Sitting Balance: Poor Sitting Equilibrium Reactions: Absent Left, Absent Right Sitting Protective Reactions: Absent Left, Absent Right - Standing Balance and Reactions Static Standing Balance: Poor Standing Equilibrium Reactions: Absent Left, Absent Right Standing Protective Reactions: Absent Left, Absent Right - Comments Balance Assessment Comments: pt unable to maintain stand with mod of 2. Functional Mobility - Bed Mobility Rolling R/L: Max Assist, 2 person assist Supine to Sit: Max Assist, 2 person assist Sit to Supine: Max Assist, 2 person assist - Transfers Sit to Stand: Max Assist, 2 person assist Stand to Sit: Max Assist, 2 person assist - Safety Awareness Safety Awareness: Poor Treatment time - Time with patient Total treatment time: 25 Patient Education - Education Patient Education: Activity Modification, Education of Plan of Care Teaching Recipient: Patient, Family Teaching Methods: Discussion (Discussion with pt's regarding POC. concerned that pt is unable to progress.) Assessment - Assessment Problem List:: Decreased level of function, Requires training/education, Decreased safety/Risk of falls, Weakness, Cognitive status limits abilities Rehab Potential: Fair Further Therapy Indicated?: Yes Short Term Goals GOAL #1: pt transfer sup to/from sit to/from stand with mod x2 Goal to be met by: 06/29/17 GOAL #2: pt amb with rwx 20ft with mod x 2 Goal to be met by: 06/29/17 Snf Goals GOAL #1: pt transfer sup to/from sit to/from stand mod x 1 Goal to be met by: 07/01/17 GOAL #2: pt amb with rwx 50ft with mod x 1 Goal to be met by: 07/01/17 GOAL #3: pt able to sit at side of bed x 5 mins with CGA Goal to be met by: 07/01/17 Plan Plan of Care: Therapeutic EX, Therapeutic Activity, Self-Care/Home Management Other:: gait training Frequency of Treatment: 1-2 X day, as tolerated Duration of Treatment: 5 days Anticipated Discharge Destination: Home Has the Physician been added for Co-signature?: Yes
[2017-06-26] MEDS: MELATONIN 6 MG PO SCH (21:14)
[2017-06-27] MEDS: DUONEB NEB SCH ×4 (05:35→23:20)
[2017-06-27] MEDS: SODIUM CHLORIDE 1,000 ML IV SCH ×2 (06:17→20:30)
[2017-06-27] MEDS: PRILOSEC PO SCH (06:18)
[2017-06-27] MEDS: NAMENDA PO SCH ×2 (08:22→20:23)
[2017-06-27] MEDS: MULTIVITAMIN TABLET PO SCH (08:22)
[2017-06-27] MEDS: ASPIRIN EC PO SCH (08:22)
[2017-06-27] MEDS: CALCIUM 500 + VIT D 200 MG TABLET PO SCH (08:22)
[2017-06-27] MEDS: ATIVAN PO SCH ×2 (08:22→17:21)
[2017-06-27] MEDS: K-DUR PO SCH ×2 (08:22→20:23)
[2017-06-27] MEDS: FERROUS SULFATE PO SCH (08:23)
[2017-06-27] MEDS: ARICEPT PO SCH (08:23)
[2017-06-27] MEDS: LEXAPRO PO SCH (08:23)
[2017-06-27] MEDS: ROCEPHIN 1 GM in SODIUM CHLORIDE 50 ML IV SCH (08:45)
[2017-06-27] MEDS: SOLU-MEDROL 125 MG IVP SCH ×2 (08:56→20:23)
[2017-06-27] MEDS: MELATONIN 6 MG PO SCH (20:27)
[2017-06-28] MEDS: DUONEB NEB SCH ×4 (04:55→23:40)
[2017-06-28] MEDS: PRILOSEC PO SCH (05:47)
[2017-06-28] MEDS: SODIUM CHLORIDE 1,000 ML IV SCH ×2 (06:18→09:25)
[2017-06-28] MEDS: K-DUR PO SCH ×2 (08:26→21:00)
[2017-06-28] MEDS: ROCEPHIN 1 GM in SODIUM CHLORIDE 50 ML IV SCH (08:26)
[2017-06-28] MEDS: MULTIVITAMIN TABLET PO SCH (08:26)
[2017-06-28] MEDS: ATIVAN PO SCH ×2 (08:26→15:12)
[2017-06-28] MEDS: ARICEPT PO SCH (08:26)
[2017-06-28] MEDS: NAMENDA PO SCH ×2 (08:27→21:00)
[2017-06-28] MEDS: ASPIRIN EC PO SCH (08:27)
[2017-06-28] MEDS: LEXAPRO PO SCH (08:27)
[2017-06-28] MEDS: CALCIUM 500 + VIT D 200 MG TABLET PO SCH (08:27)
[2017-06-28] MEDS: FERROUS SULFATE PO SCH (08:27)
[2017-06-28] MEDS: SOLU-MEDROL 125 MG IVP SCH ×2 (09:22→21:00)
[2017-06-28] MEDS: MELATONIN 6 MG PO SCH (22:29)
[2017-06-29] MEDS: DUONEB NEB SCH ×3 (05:15→14:25)
[2017-06-29] MEDS: PRILOSEC PO SCH (05:44)
[2017-06-29] MEDS: SOLU-MEDROL 125 MG IVP SCH (09:03)
--- NOTE | 2017-06-29 09:50 | DI ---
EXAM: CHEST FRONTAL VIEW HISTORY: Cough, pneumonia COMPARISON: 01/23/2017 FINDINGS: Heart size is upper limit normal and stable. There is mild atherosclerotic disease. Mild bilateral infiltrates are suggested, greater in the central lung zones. No well-defined lobar conso lidation, visible pleural fluid or pneumothorax. IMPRESSION: Bilateral infiltrates which could represent pneumonia although are suggestive of possible mild pulmon becky edema. Correlate clinically.
[2017-06-29] MEDS: ROCEPHIN 1 GM in SODIUM CHLORIDE 50 ML IV SCH (10:08)
[2017-06-29] MEDS: MULTIVITAMIN TABLET PO SCH (10:09)
[2017-06-29] MEDS: FERROUS SULFATE PO SCH (10:09)
[2017-06-29] MEDS: ASPIRIN EC PO SCH (10:09)
[2017-06-29] MEDS: ATIVAN PO SCH ×2 (10:09→15:26)
[2017-06-29] MEDS: LEXAPRO PO SCH (10:09)
[2017-06-29] MEDS: ARICEPT PO SCH (10:09)
[2017-06-29] MEDS: K-DUR PO SCH (10:09)
[2017-06-29] MEDS: CALCIUM 500 + VIT D 200 MG TABLET PO SCH (10:09)
[2017-06-29] MEDS: NAMENDA PO SCH (10:09)
--- NOTE | 2017-06-29 10:49 | PCM.PROG ---
Attending Provider: ATTENDING PROVIDER: Dr. VICKIE AWAN This patient is seen with Oumou Palma, Nurse Practitioner. DATE OF SERVICE: 06/29/17 SUBJECTIVE: This 77 year old WHITE/ M was hospitalized 06/25/17. The patient is lying in bed alert, oriented to person. Cough improving. He is not confused this morning. REVIEW OF SYSTEMS: CONSTITUTIONAL: No night sweats. No fatigue, malaise, lethargy. No fever or chills. HEENT: Eyes: No visual changes. No eye pain. No eye discharge. ENT: No runny nose. No epistaxis. No sinus pain. No odynophagia. No congestion. RESPIRATORY: Cough. No hemoptysis. No shortness of breath. CARDIOVASCULAR: No angina symptoms. No CHF symptoms. No atypical chest pain for CAD. No palpitations. No orthopnea.. GASTROINTESTINAL: No abdominal pain. No nausea or vomiting. No diarrhea or constipation. No hematemesis. No hematochezia. GENITOURINARY: No urgency. No frequency. No dysuria. No hematuria. No obstructive symptoms. No discharge. No pain. No significant abnormal bleeding. MUSCULOSKELETAL: No musculoskeletal pain; no joint swelling. NEUROLOGICAL: Awake, alert, oriented person. No headache. No neck pain. No syncope. No seizures. No dizziness. PSYCHIATRIC: Not anxious. No depression. No suicidal thoughts. No homicidal thoughts. SKIN: No rash. No lesions. No wounds. ENDOCRINE: No unexplained weight loss. No weight gain. HEMATOLOGIC/LYMPHATIC: No anemia. No purpura. No petechiae. No prolonged or excessive bleeding. No palpable lymph nodes. PHYSICAL EXAMINATION: GENERAL: The patient is awake, alert and oriented, lying in bed in no distress. VITAL SIGNS: Temperature 97.0 F, Pulse 100, Respiratory Rate 18, BP 128/84, Pulse Ox 94% HEENT: Head normocephalic, atraumatic. Eyes: Extraocular muscles are intact. Pupils are equal, round and reactive to light and accommodation. Ears: No lesions. Nose appeared normal. Throat: No exudate or erythema. NECK: Supple. No JVD, no carotid bruit. No lymphadenopathy or thyromegaly. LUNGS: Diminished breath sounds. Clear to auscultation. Percussion note normal. Chest symmetrical. HEART: S1, S2, no S3. No murmurs. No cyanosis or clubbing. No ascites. Pulses: Dorsalis pedis and posterior tibial pulses +1 to +2 both sides. ABDOMEN: Soft. Non-tender. Bowel sounds active. No CVA tenderness. No mass felt. EXTREMITIES: No edema. Full range of motion of all extremities, equal. NEUROLOGIC: No focal deficit. Cranial nerves II through XII are grossly intact. No headache, no double vision or headache. SKIN: Not dry. Intact. Turgor-normal. LYMPHATIC: No palpable lymph nodes/no lymphedema. MUSCULOSKELETAL: Normal joints with no swelling. Muscle tone is normal. LAB REVIEW: 06/29/17 05:05 06/29/17 05:05 06/29/17 05:05: Sodium 141, Potassium 4.1, Chloride 104, Carbon Dioxide 27, Anion Gap 14.1, BUN 16, Creatinine 0.76, Estimated GFR (MDRD) 99.00, BUN/ Creatinine Ratio 21.05, Glucose 170 H, Calcium 8.7, Total Bilirubin 0.5, AST 17 , ALT 26, Alkaline Phosphatase 51 L, Total Protein 6.1, Albumin 3.3 L, Globulin 2.8, Albumin/Globulin Ratio 1.18 06/29/17 05:05: WBC 6.08, RBC 3.38 L, Hgb 10.6 L, Hct 30.0 L, MCV 88.8, MCH 31.4 H, MCHC 35.3, RDW Coeff of [place] 13.7, Plt Count 210, Immature Gran % (Auto) 2.5, Neut % (Auto) 68.9, Lymph % (Auto) 18.9, [place] % (Auto) 9.5, Eos % (Auto) 0.0, Baso % (Auto) 0.2, Immature Gran # (Auto) 0.2, Neut # 4.2, Lymph # 1.2, [place] # 0.6, Eos # 0.0, Baso # 0.0 ASSESSMENT: 1. BIBASILAR PNEUMONIA VS ATELECTASIS 2. DEMENTIA WITH BEHAVIORAL DISTURBANCES 3. HYPONATREMIA, RESOLVED 4. HYPOTENSION, RESOLVED PLAN: 1. Repeat Chest x-ray one view 2. Anticipate D/C to [facility] Plan and coordination of the patient's care discussed in the presence of Industrial Sales Engineer and nurse. CONDITION: Stable SCRIBED BY: PEG GREENWOOD Clinical Data Assistant scribed while in presence of service performed by Dr. Awan/Oumou Palma APRN on 06/29/17 ([id number])
[2017-06-29] MEDS ORDERED: LASIX IVP STA (10:51)
--- NOTE | 2017-06-29 13:08 | CM.DICTOOL ---
ADMISSION: 2017 DISCHARGE: 2017 DATE OF SERVICE: 06/29/17 FINAL DIAGNOSIS Bibasilar pneumonia vs atelectasis Hyponatremia, resolved Hypotension, resolved Dementia Anemia Anxiety Osteoarthritis Hiatal Hernia Dyslipidemia Rheumatic Fever by history Cholecystectomy LAST VITALS Temp Pulse Resp BP Pulse Ox 97.3 F L 80 18 141/71 H 98 06/29/17 10:00 06/29/17 10:00 06/29/17 10:00 06/29/17 10:00 06/29/17 10:00 ACTIVE HOME MEDICATIONS Acetaminophen (Tylenol) 650 mg PO Q4HR PRN PRN Reason: pain and fever Aspirin (Aspirin Ec) 81 mg PO DAILYWM COUNTS INCLUDE 234 BEDS AT THE [facility] Last Admin: 06/29/17 10:09 Dose: 81 mg Calcium/Vitamin D (Calcium 500 + Vit D 200 Mg Tablet) 1 each PO DAILY COUNTS INCLUDE 234 BEDS AT THE [facility] Last Admin: 06/29/17 10:09 Dose: 1 each Donepezil HCl (Aricept) 10 mg PO DAILY COUNTS INCLUDE 234 BEDS AT THE [facility] Last Admin: 06/29/17 10:09 Dose: 10 mg Escitalopram Oxalate (Lexapro) 10 mg PO DAILY COUNTS INCLUDE 234 BEDS AT THE [facility] Last Admin: 06/29/17 10:09 Dose: 10 mg Ferrous Sulfate (Ferrous Sulfate) 324 mg PO DAILY COUNTS INCLUDE 234 BEDS AT THE [facility] Last Admin: 06/29/17 10:09 Dose: 324 mg Guaifenesin/Codeine Phosphate (Robitussin Ac Syrup) 10 ml PO Q4H PRN PRN Reason: Cough Last Admin: 06/28/17 23:25 Dose: 10 ml Memantine (Namenda) 10 mg PO BID COUNTS INCLUDE 234 BEDS AT THE [facility] Last Admin: 06/29/17 10:09 Dose: 10 mg Multivitamins (Multivitamin Tablet) 1 tab PO DAILY COUNTS INCLUDE 234 BEDS AT THE [facility] Last Admin: 06/29/17 10:09 Dose: 1 tab Non-Formulary Medication (Melatonin [Melatonin]) 6 mg PO BEDTIME COUNTS INCLUDE 234 BEDS AT THE [facility] Last Admin: 06/28/17 22:29 Dose: Not Given Omeprazole (Prilosec) 20 mg PO QDAC COUNTS INCLUDE 234 BEDS AT THE [facility] Last Admin: 06/29/17 05:44 Dose: 20 mg Potassium Chloride (K-Dur) 20 meq PO BID COUNTS INCLUDE 234 BEDS AT THE [facility] Last Admin: 06/29/17 10:09 Dose: 20 meq ALLERGIES Penicillins Adverse Reaction (Verified 06/24/17 16:25) NEW PRESCRIPTIONS: Keflex 500 mg TID for 7 days Prednisone 10 mg Daily for 7 days SMOKING: Not Applicable DISEASE SPECIFIC EDUCATION: Not applicable due to patient dementia advised of new medications LAB REVIEW: 06/29/17 05:05 06/29/17 05:05 06/29/17 05:05: Sodium 141, Potassium 4.1, Chloride 104, Carbon Dioxide 27, Anion Gap 14.1, BUN 16, Creatinine 0.76, Estimated GFR (MDRD) 99.00, BUN/ Creatinine Ratio 21.05, Glucose 170 H, Calcium 8.7, Total Bilirubin 0.5, AST 17 , ALT 26, Alkaline Phosphatase 51 L, Total Protein 6.1, Albumin 3.3 L, Globulin 2.8, Albumin/Globulin Ratio 1.18 06/29/17 05:05: WBC 6.08, RBC 3.38 L, Hgb 10.6 L, Hct 30.0 L, MCV 88.8, MCH 31.4 H, MCHC 35.3, RDW Coeff of [place] 13.7, Plt Count 210, Immature Gran % (Auto) 2.5, Neut % (Auto) 68.9, Lymph % (Auto) 18.9, [place] % (Auto) 9.5, Eos % (Auto) 0.0, Baso % (Auto) 0.2, Immature Gran # (Auto) 0.2, Neut # 4.2, Lymph # 1.2, [place] # 0.6, Eos # 0.0, Baso # 0.0 PLAN: Discharge to [facility] Diet: Regular as tolerated, regular consistency, regular liquids. Add a banana daily with breakfast. Activity: Up to dining room for meals Physical and Occupational Therapy Evaluation and treatments Vital Signs daily for one week, then weekly Incontinent care prn Decubitus precautions Weigh monthly CBC, CMP weekly x 2, then monthly Oumou Palma APRN to see on usp rounds in 7-10 days. Mr. Ott is alert to person, place. He feeds himself, but requires assistance with meal set-up. He turns himself in the bed, but requires assistance of 2 staff members for transfers to the chair. No respiratory distress is noted, no cough. He is lying supine in the bed with oxygen saturation of 94% on room air. He has not required oxygen during his hospital stay. No abdominal pain or nausea, meal intakes 75-90%. Skin is intact and free of decubitus ulcers, rashes or irritation. Mayito Pearson MD Oumou Palma APRN
[2017-06-29 14:32] VITALS: BP 115/81; TEMP 98
--- NOTE | 2017-06-29 15:31 | PN ---
DATE OF SERVICE: 06/25/17 SUBJECTIVE: The patient was hospitalized with hyponatremia and also pneumonia. It seems to be from aspiration. The patient's condition seems to be improved. His sodium is now from 123 to 132. Pneumonia clinically seems to be improving. He is able to convince the to get the patient in the hospital as the patient was kept on hold in the emergency room because of no beds. The patient's condition is stable. The patient was seen and examined with Nurse Practitioner. TIME SPENT: More than 30 minutes. Plan and coordination of the patient's care discussed in the presence of nurse. GIGI
--- NOTE | 2017-06-30 11:53 | DS ---
DATE OF SERVICE: 06/29/17 FINAL DIAGNOSIS: 1. BIBASILAR PNEUMONIA VS ATELECTASIS 2. HYPONATREMIA RESOLVED 3. HYPOTENSION RESOLVED 4. DEMENTIA 5. ANEMIA 6. ANXIETY 7. OSTEOARTHRITIS 8. HIATAL HERNIA 9. DYSLIPIDEMIA 10. RHEUMATIC FEVER BY HISTORY 11. CHOLECYSTECTOMY LAST V/S: Temp Pulse Resp BP Pulse Ox 97.3 80 18 141/71 H 98 DISCHARGE INSTRUCTIONS: 1. Discharge to [facility]. Followup appointment: Oumou Palma APRN to see on [facility] rounds in 7-10 days. MEDICATIONS AT DISCHARGE: Acetaminophen (Tylenol) 650 mg PO Q4HR PRN PRN Reason: pain and fever Aspirin (Aspirin Ec) 81 mg PO DAILYWM [facility] Last Admin: 06/29/17 10:09 Dose: 81 mg Calcium/Vitamin D (Calcium 500 + Vit D 200 Mg Tablet) 1 each PO DAILY [facility] Last Admin: 06/29/17 10:09 Dose: 1 each Donepezil HCl (Aricept) 10 mg PO DAILY [facility] Last Admin: 06/29/17 10:09 Dose: 10 mg Escitalopram Oxalate (Lexapro) 10 mg PO DAILY [facility] Last Admin: 06/29/17 10:09 Dose: 10 mg Ferrous Sulfate (Ferrous Sulfate) 324 mg PO DAILY [facility] Last Admin: 06/29/17 10:09 Dose: 324 mg Guaifenesin/Codeine Phosphate (Robitussin Ac Syrup) 10 ml PO Q4H PRN PRN Reason: Cough Last Admin: 06/28/17 23:25 Dose: 10 ml Memantine (Namenda) 10 mg PO BID [facility] Last Admin: 06/29/17 10:09 Dose: 10 mg Multivitamins (Multivitamin Tablet) 1 tab PO DAILY [facility] Last Admin: 06/29/17 10:09 Dose: 1 tab Non-Formulary Medication (Melatonin ) 6 mg PO BEDTIME [facility] Last Admin: 06/28/17 22:29 Dose: Not Given Omeprazole (Prilosec) 20 mg PO QDAC [facility] Last Admin: 06/29/17 05:44 Dose: 20 mg Potassium Chloride (K-Dur) 20 meq PO BID [facility] Last Admin: 06/29/17 10:09 Dose: 20 meq ALLERGIES: Penicillins Adverse Reaction (Verified 06/24/17 16:25) NEW PRESCRIPTIONS: Keflex 500 mg TID for 7 days Prednisone 10 mg Daily for 7 days DIET INSTRUCTIONS: Regular as tolerated, regular consistency, regular liquids. Add a banana daily with breakfast. ACTIVITY: Up to dining room for meals. Physical and Occupational Therapy evaluations and treatments SMOKING: N/A DISEASE SPECIFIC EDUCATION: Not applicable due to patient dementia advised of new medications HOSPITAL COURSE: This is a 77-year-old white male who currently resides at [facility] [place] for physical therapy due to worsening dementia and generalized weakness. He had a low grade fever at the [facility], temperature of 99 to 100, mild shortness of breath. He was brought to the emergency room. Chest x-ray revealed that he had slight bibasilar pneumonia versus atelectasis along with sodium level of 126 and hypotension. He was subsequently admitted, given IV fluids, Normal Saline at 83 cc/hr. Within 48 hours, his sodium had returned to 133. He was started on Rocephin 1 gm IV daily for the possible pneumonia along with Solu-Medrol 80 mg IV q.12hr. He has had some bouts of extreme confusion, agitation. He does have Alzheimer's dementia which is likely worsened due to change of environment as he was just getting use to the [facility]. His fever within the first 48 hours resolved. After IV fluids for the first 48 hours, his blood pressure also returned to normal. Today, on day of discharge, blood pressure was 140/71, heart rate 97.3, pulse 80, pulse ox 98% on room air, respirations 18. He does have history of anemia for which he takes iron. Today, on day of discharge, hemoglobin 10.6, hematocrit 30.0, white count 6.08. Sodium 141, potassium 4.1, BUN 16, creatinine 0.76. PT and OT have been consulted here as he was doing PT and OT in the [facility]. He will continue this when he goes back to the [facility]. We did start him on Ativan 1 mg p.o. b.i.d. to be given at 9 and 4 o'clock to help with the agitation and this has helped him rest some and he has been somewhat less combative. He will continue this medication once he returns to the [facility]. We will discharge him on Keflex 500 mg t.i.d. for the next 7 days along with Prednisone 10 mg daily for the next 7 days. He had a repeat chest x-ray today which showed no pneumonia, possible congestion. An extra 20 mg of IV Lasix will be given to him before he goes home. He is in no distress. He has not been short of breath. His cough has resolved. He was alert and oriented to person and place this morning. He recognized me and asked about my so I do think his condition is slightly improved to what it can be so he will go back to the [facility] today as this is the 's wishes and he is in stable condition. We will finish out his medications and followup with him at [facility]. PLAN: 1. Physical and Occupational Therapy Evaluation and treatments 2. Vital Signs daily for one week, then weekly 3. Incontinent care p.r.n. 4. Decubitus precautions 5. Weigh monthly 6. CBC, CMP weekly x 2, then monthly TIME SPENT: More than 60 minutes. CITLALYD
== END 2017-06-29 16:20 | DRG 194 ==
LOC: ED 16:19 → MEDSURG A 06-25 14:48
PROVIDERS: ADMIT Internal Medicine; ATTEND Internal Medicine
DX: J18.9 Pneumonia, unspecified organism (principal); E87.1 Hypo-osmolality and hyponatremia; J98.11 Atelectasis; F03.91 Unspecified dementia, unspecified severity, with behavioral disturbance; F05 Delirium due to known physiological condition; I95.9 Hypotension, unspecified; D64.9 Anemia, unspecified; F41.9 Anxiety disorder, unspecified; M19.90 Unspecified osteoarthritis, unspecified site; E78.5 Hyperlipidemia, unspecified; R53.1 Weakness; R05 Cough; Z86.79 Personal history of other diseases of the circulatory system; Z90.49 Acquired absence of other specified parts of digestive tract; Z79.899 Other long term (current) drug therapy
CPT/HCPCS: 36415; 80053; 81001; 82550; 83605; 84145; 84484; 85025; 87040; 87081; 87502; 87651; 93005; 93010; 94640; 96361; 96365; 96375; 96376; 99284

== ENCOUNTER 2017-07-20 11:10 | Observation (INO) | payer OTHER ==
[2017-07-20 11:23] VITALS: BMI 21.8
--- NOTE | 2017-07-20 12:10 | CT ---
EXAM: CT ABDOMEN AND PELVIS HISTORY: Vomiting, abdominal pain TECHNIQUE: CT abdomen and pelvis without intravenous contrast. Images were reconstructed using 5 mm section thickness. Reformations were prepared. COMPARISON: 06/05/2017 FINDINGS: Diagnostic limitations exist without including contrast enhanced images. Motion artifact degrades im age quality. No focal hepatic lesions are identified. Possible 6 mm cyst of the spleen. Gallbladde r is absent. Pancreas and adrenal glands appear normal. No hydronephrosis or nephrolithiasis. No e vidence of ureteral obstruction. Mild atherosclerotic disease. Small hiatal hernia. An appendix, if present is not seen. There is mild distal colon diverticulosis. No definite prostate enlargement. Urinary bladder within normal limits. There is no ascites or fo cus of inflammatory infiltration of the abdominal fat. No ventral abdominal wall hernia. There is degenerative disc and facet disease of the lower spine wi th scoliosis. Lung bases reveal chronic appearing interstitial changes. No pneumoperitoneum. IMPRESSION: 1. Small hiatal hernia. Normal bowel gas pattern. No ascites or free air. 2. Mild atherosclerosis. 3. Mild distal colon diverticulosis without diverticulitis.
--- NOTE | 2017-07-20 12:10 | CT ---
Exam: CT of the chest without intravenous contrast. Comparison: CT chest performed 06/24/2017. Reason for exam: Cough. FINDINGS: No pneumothorax, pleural effusion, or focal consolidation. There is mild ground-glass in the lung bases. The aorta is normal in course and caliber. The heart is not enlarged. Atherosclerotic disease is seen within the aorta and distal arterial vasculature. There is a moderately-sized hiatal hernia. There is mild degenerative disease in the cervical spine. No suspicious appearing osteoblastic or os teolytic lesions. Impression: 1. Similar appearing minimal basilar atelectasis. 2. No acute imaging findings are seen within the thorax
--- NOTE | 2017-07-20 12:32 | ED.PDOC ---
General ED Provider: Dr. LUIZ GAINES Chief Complaint: Abdominal Pain Stated Complaint: abdominal pain Time Seen by Physician: 11:19 (Mr wells was seen with his nurse and PA student at all times ) Mode of Arrival: Wheelchair Information Source: Patient Exam Limitations: No limitations Primary Care Provider: VICKIE AWAN Referred to ED by: Other (belching after his meds was recetlt D/C(PRILOSEC)) Nursing and Triage Documentation Reviewed and Agree: Yes Reviewed sepsis parameters & appropriate labs ordered?: Yes System Inflammatory Response Syndrome: Not Applicable Sepsis Protocol: For patient's 13 years and over: Temp is 96.8 and below OR 101 and greater Pulse >90 BPM Resp >20/minute Acutely Altered Mental Status Are patient's symptoms suggestive of a new infection, such as: -Pneumonia -Skin, Soft Tissue -Endocarditis -UTI -Bone, Joint Infection -Implantable Device -Acute Abdominal Infection -Wound Infection -Meningitis -Blood Stream Catheter Infection -Unknown System Inflammatory Response Syndrome: Not Applicable GI Complaint Exam - Vomiting/Diarrhea Complaint/Exam Onset/Duration: today 20 min 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 Denies: Dizziness, Light-headedness, Melena, Hematemesis, Fever, Cramping Related History: Reports: Similar episode Non-GI Risk Factors: Reports: None Surgical Obstruction Risk Factors: Reports: None Review of Systems - Review Of Systems Constitutional: Reports: No symptoms Eyes: Reports: No symptoms Ears, Nose, Mouth, Throat: Reports: No symptoms Respiratory: Reports: No symptoms Cardiac: Reports: No symptoms GI: Reports: Nausea, Poor appetite (belching ) : Reports: No symptoms Musculoskeletal: Reports: No symptoms Skin: Reports: No symptoms Neurological: Reports: No symptoms Endocrine: Reports: No symptoms Hematologic/Lymphatic: Reports: No symptoms All Other Systems: Reviewed and Negative Past Medical History - Past Medical History Previously Healthy: Yes Endocrine: Reports: Dyslipidemia Cardiovascular: Reports: None Respiratory: Reports: None Hematological: Reports: None Gastrointestinal: Reports: GERD Genitourinary: Reports: None Neuro/Psych: Reports: None Musculoskeletal: Reports: None Cancer: Reports: None - Surgical History General Surgical History: Reports: None - Family History Family History: Reports: None - Social History Smoking Status: Never smoker Hx Substance Use: No Alcohol Screening: None Physical Exam - Physical Exam Appearance: Well-appearing, No pain distress, Well-nourished Eyes: JOHANN, EOMI, Conjunctiva clear ENT: Ears normal, Nose normal, Oropharynx normal Respiratory: Airway patent, Breath sounds clear, Breath sounds equal, Respirations nonlabored Cardiovascular: RRR, Pulses normal, No rub, No murmur GI/: Soft, Nontender, No masses, Bowel sounds normal, No Organomegaly Musculoskeletal: Normal strength, ROM intact, No edema, No calf tenderness Skin: Warm, Dry, Normal color Neurological: Sensation intact, Motor intact, Reflexes intact, Cranial nerves intact, Alert, Oriented Psychiatric: Affect appropriate, Mood appropriate Physician Notification - Case Discussed Physician Notified: AWAN Time of Notification: 12:54 Admit To: Observation Critical Care Note - Critical Care Note Total Time (mins): 0 Course - Course Hematology/Chemistry: 07/20/17 11:55 07/20/17 11:55 Orders, Labs, Meds: Lab Review 07/20/17 07/20/17 07/20/17 11:48 11:55 11:55 WBC 5.04 RBC 3.77 L Hgb 11.7 L Hct 33.0 L MCV 87.5 MCH 31.0 MCHC 35.5 H RDW Coeff of [place] 13.8 Plt Count 255 Immature Gran % (Auto) 0.2 Neut % (Auto) 31.8 Lymph % (Auto) 45.8 [place] % (Auto) 13.7 H Eos % (Auto) 8.1 H Baso % (Auto) 0.4 Immature Gran # (Auto) 0.0 Neut # 1.6 L Lymph # 2.3 [place] # 0.7 Eos # 0.4 Baso # 0.0 Sodium 133 L Potassium 4.0 Chloride 98 Carbon Dioxide 25 Anion Gap 14.0 BUN 8 Creatinine 0.77 Estimated GFR (MDRD) 98.00 BUN/Creatinine Ratio 10.38 Glucose 71 L Calcium 9.4 Total Bilirubin 1.0 AST 29 ALT 42 Alkaline Phosphatase 75 Total Protein 6.4 Albumin 3.4 Globulin 3.0 Albumin/Globulin Ratio 1.13 Influenza A (Rapid) Negative by naat Influenza B (Rapid) Negative by naat Orders Category Date Time Status EKG-(ED ONLY) Stat CARDIO 07/20/17 11:29 Ordered BLOOD CULTURE (ED ONLY) Stat LAB 07/20/17 11:55 Received CBC W/ AUTO DIFF Stat LAB 07/20/17 11:55 Completed COMPREHENSIVE METABOLIC PANEL Stat LAB 07/20/17 11:55 Completed FLU A/B MOLECULAR Stat LAB 07/20/17 11:48 Completed PROCALCITONIN Stat LAB 07/20/17 11:[address] ABDOMEN/PELVIS WO CONTRAST Stat RADS 07/20/17 11:[address] CHEST W/O CONTRAST Stat RADS 07/20/17 11:32 Completed Vital Signs: Temp Pulse Resp BP Pulse Ox 07/20/17 11:19 97.4 F L 57 L 20 111/57 L 100 Departure - Departure Time of Disposition: 13:00 Disposition: PLACED OBSERVATION Discharge Problem: Belching symptom, Abdominal pain Instructions: Abdominal Pain (ED) Condition: Good Pt referred to PMD for follow-up: Yes IPMP verified?: No Additional Instructions: Please call your Family Physician as soon as possible to schedule a follow-up appointment. Allergies/Adverse Reactions: Allergies Penicillins Adverse Reaction (Verified 07/20/17 11:29) Home Medications: Ambulatory Orders Calcium Carb/Vitamin D3/Vit K1 [Calcium + D Soft Chewable Tab] 1 each PO DAILY 11/29/13 Multivitamin 1 cap PO DAILY 11/29/13 Ferrous Sulfate [Iron] 65 mg PO DAILY 10/15/16 Escitalopram Oxalate [Lexapro] 10 mg PO DAILY #30 tablet 10/17/16 Aspirin [Adult Low Dose Aspirin EC] 81 mg PO DAILY 01/20/17 Memantine HCl [Namenda] 10 mg PO BID 01/20/17 Potassium Chloride [K-Dur] 20 meq PO BID #60 tab 06/09/17 Acetaminophen 650 mg PO Q4HR PRN 06/24/17 Cyanocobalamin (Vitamin B-12) [Vitamin B-12] 1,000 mcg PO DAILY 07/20/17 Loratadine 10 mg PO DAILY 07/20/17 Melatonin 5 mg PO BEDTIME 07/20/17 Pantoprazole Sodium 40 mg PO BID 07/20/17 Simvastatin 20 mg PO BEDTIME 07/20/17 Disposition Discussed With: Patient
[2017-07-20] MEDS ORDERED: ZOFRAN 4 MG/2 ML IVP STA (15:48)
[2017-07-20] MEDS ORDERED: ZOFRAN 4 MG/2 ML IVP PRN (15:48)
[2017-07-20] MEDS: SODIUM CHLORIDE 1,000 ML IV SCH (17:37)
[2017-07-20] MEDS ORDERED: PROTONIX PO SCH (21:00)
[2017-07-20] MEDS ORDERED: K-DUR PO SCH (21:00)
[2017-07-20] MEDS ORDERED: NAMENDA PO SCH (21:00)
[2017-07-20] MEDS ORDERED: NON-FORMULARY MEDICATION (Simvastatin [Simvastatin] 20 MG) PO SCH (21:00)
[2017-07-20] MEDS ORDERED: NON-FORMULARY MEDICATION (Melatonin [Melatonin] 5 MG) PO SCH (21:00)
[2017-07-21] MEDS: SODIUM CHLORIDE 1,000 ML IV SCH (05:08)
[2017-07-21] MEDS ORDERED: PROTONIX PO SCH (07:00)
[2017-07-21] MEDS ORDERED: ASPIRIN EC PO SCH (08:00)
[2017-07-21] MEDS ORDERED: K-DUR PO SCH (09:00)
[2017-07-21] MEDS ORDERED: FERROUS SULFATE 65 MG PO SCH (09:00)
[2017-07-21] MEDS ORDERED: NAMENDA PO SCH (09:00)
[2017-07-21] MEDS ORDERED: NON-FORMULARY MEDICATION (Loratadine [Loratadine] 10 MG) PO SCH (09:00)
[2017-07-21] MEDS ORDERED: ARICEPT PO SCH (09:00)
[2017-07-21] MEDS ORDERED: LEXAPRO PO SCH (09:00)
--- NOTE | 2017-07-21 09:14 | PCM.PROG ---
Attending Provider: ATTENDING PROVIDER: Dr. VICKIE AWAN This patient is seen with Oumou Palma, Nurse Practitioner. DATE OF SERVICE: 07/21/17 SUBJECTIVE: This 77 year old WHITE/ M was hospitalized 07/20/17. The patient is laying in bed, alert. Labs and CT scan were all normal. Protonix 40 mg b.i.d. was restarted. Discussed in detail with the need for the patient to return to shelter for more assistance in caring for the patient. The is undecided and is going to take him home today. REVIEW OF SYSTEMS: CONSTITUTIONAL: Weakness. No night sweats. No malaise, lethargy. No fever or chills. HEENT: Eyes: No visual changes. No eye pain. No eye discharge. ENT: No runny nose. No epistaxis. No sinus pain. No odynophagia. No congestion. RESPIRATORY: No cough, no congestion. No hemoptysis. No shortness of breath. CARDIOVASCULAR: No angina symptoms. No CHF symptoms. No atypical chest pain for CAD. No palpitations. No orthopnea.. GASTROINTESTINAL: No abdominal pain. No nausea or vomiting. No diarrhea or constipation. No hematemesis. No hematochezia. GENITOURINARY: No urgency. No frequency. No dysuria. No hematuria. No obstructive symptoms. No discharge. No pain. No significant abnormal bleeding. MUSCULOSKELETAL: No musculoskeletal pain; no joint swelling. NEUROLOGICAL: Awake, alert, oriented to person, has confusion. No headache. No neck pain. No syncope. No seizures. No dizziness. PSYCHIATRIC: Not anxious. No depression. No suicidal thoughts. No homicidal thoughts. SKIN: No rash. No lesions. No wounds. ENDOCRINE: No unexplained weight loss. No weight gain. HEMATOLOGIC/LYMPHATIC: No anemia. No purpura. No petechiae. No prolonged or excessive bleeding. No palpable lymph nodes. PHYSICAL EXAMINATION: GENERAL: The patient is awake, alert, oriented to person lying in bed in no distress. VITAL SIGNS: Temperature 98.1 F, Pulse 57, Respiratory Rate 18, BP 96/47, Pulse Ox 95% HEENT: Head normocephalic, atraumatic. Eyes: Extraocular muscles are intact. Pupils are equal, round and reactive to light and accommodation. Ears: No lesions. Nose appeared normal. Throat: No exudate or erythema. NECK: Supple. No JVD, no carotid bruit. No lymphadenopathy or thyromegaly. LUNGS: Clear to auscultation. Percussion note normal. Chest symmetrical. HEART: S1, S2, no S3. No murmurs. No cyanosis or clubbing. No ascites. Pulses: Dorsalis pedis and posterior tibial pulses +1 to +2 both sides. ABDOMEN: Soft. Non-tender. Bowel sounds active. No CVA tenderness. No mass felt. EXTREMITIES: No edema. Full range of motion of all extremities, equal. NEUROLOGIC: No focal deficit. Cranial nerves II through XII are grossly intact. No headache, no double vision or headache. SKIN: Not dry. Intact. Turgor-normal. LYMPHATIC: No palpable lymph nodes/no lymphedema. MUSCULOSKELETAL: Normal joints with no swelling. Muscle tone is normal. LAB REVIEW: 07/21/17 06:30 07/21/17 06:30 07/21/17 06:30: Sodium 135 L, Potassium 4.2, Chloride 104, Carbon Dioxide 24, Anion Gap 11.2, BUN 8, Creatinine 0.74, Estimated GFR (MDRD) 102.00, BUN/ Creatinine Ratio 10.81, Glucose 89, Calcium 8.4, Total Bilirubin 0.8, AST 28, ALT 37, Alkaline Phosphatase 63, Total Protein 5.7 L, Albumin 3.1 L, Globulin 2.6, Albumin/Globulin Ratio 1.19 07/21/17 06:30: WBC 4.44, RBC 3.40 L, Hgb 10.6 L, Hct 30.2 L, MCV 88.8, MCH 31.2 H, MCHC 35.1, RDW Coeff of [place] 13.9, Plt Count 223, Immature Gran % (Auto) 0.2, Neut % (Auto) 30.6, Lymph % (Auto) 43.7, [place] % (Auto) 12.6 H, Eos % (Auto ) 12.2 H, Baso % (Auto) 0.7, Immature Gran # (Auto) 0.0, Neut # 1.4 L, Lymph # 1.9, [place] # 0.6, Eos # 0.5, Baso # 0.0 ASSESSMENT: 1. GERD 2. ABDOMINAL PAIN RESOLVED 3. DEMENTIA 4. ATAXIA PLAN: 1. D/C home today 2. Encouraged to return to shelter or assisted living 3. Increase salt 4. Fall precautions Plan and coordination of the patient's care discussed in the presence of Medical Illustrator and nurse. CONDITION: Stable SCRIBED BY: PEG GREENWOOD Stained Glass Painter scribed while in presence of service performed by Dr. Awan/Oumou Palma APRN on 07/21/17 ([id number])
--- NOTE | 2017-07-21 09:48 | PN ---
DATE OF SERVICE: 07/20/17 SUBJECTIVE: The patient came to the office where he was heaving. The patient's looks somewhat pale. He is demented. The [facility] and was taken home by the . The last couple of days he has not been doing good at home. The patient was sent to the emergency room where the work up was negative involving chest x-ray, CT scan of the chest and labs tests. The patient is mildly dehydrated and probably has acute gastritis viral etiology very likely. REVIEW OF SYSTEMS: CONSTITUTIONAL: No night sweats. No fatigue, malaise, lethargy. No fever or chills. HEENT: Eyes: No visual changes. No eye pain. No eye discharge. ENT: No runny nose. No epistaxis. No sinus pain. No sore throat. No odynophagia. No congestion. RESPIRATORY: No cough, no congestion. No hemoptysis. No shortness of breath. CARDIOVASCULAR: No angina symptoms. No CHF symptoms. No atypical chest pain for CAD. No palpitations. No orthopnea. GASTROINTESTINAL: No abdominal pain. No nausea or vomiting. No diarrhea or constipation. No hematemesis. No hematochezia. GENITOURINARY: No urgency. No frequency. No dysuria. No hematuria. No obstructive symptoms. No discharge. No pain. No significant abnormal bleeding. MUSCULOSKELETAL: No musculoskeletal pain; no joint swelling. NEUROLOGICAL: No headache. No neck pain. No syncope. No seizures. No dizziness. PSYCHIATRIC: Not anxious. No depression. No suicidal thoughts. No homicidal thoughts. SKIN: No rash. No lesions. No wounds. ENDOCRINE: No unexplained weight loss. No weight gain. HEMATOLOGIC/LYMPHATIC: No anemia. No purpura. No petechiae. No prolonged or excessive bleeding. No palpable lymph nodes. PHYSICAL EXAMINATION: GENERAL: The patient is seems to be alert but confused. HEENT: Head normocephalic, atraumatic. Eyes: Extraocular muscles are intact. Pupils are equal, round and reactive to light and accommodation. Ears: No lesions. Nose appeared normal. Throat: No exudate or erythema. NECK: Supple. No JVD, no carotid bruit. No lymphadenopathy or thyromegaly. LUNGS: Clear to auscultation. Percussion note normal. Chest symmetrical. HEART: S1, S2, no S3. No murmurs. No cyanosis or clubbing. No ascites. Pulses: Dorsalis pedis and posterior tibial pulses +1 to +2 both sides. ABDOMEN: Soft. Nontender. Bowel sounds active. No CVA tenderness. No mass felt. EXTREMITIES: No edema. Full range of motion of all extremities, equal. NEUROLOGIC: No focal deficit. Cranial nerves II through XII are grossly intact. No headache, no double vision or headache. SKIN: Dry. Intact. Turgor - normal. Mucosa membrane dry. LYMPHATIC: No palpable lymph nodes/no lymphedema. MUSCULOSKELETAL: Normal joints with no swelling. Muscle tone is normal. ASSESSMENT: 1. Acute gastritis likely viral 2. Possible dehydration 3. Alzheimer's disease with dementia PLAN: 1. Admit this patient 2. Give Zofran for nausea 3. Continue Protonix 4. Given IV fluids 5. Watch for fluid overload 6. The patient is admitted under observation. ADDENDUM: LABS: Hemoglobin 11.7, hematocrit 33, WBC 5,000, normal differential. Monocytes are increased. Negative influenza A and B. CONDITION: Stable. TIME SPENT: More than 30 minutes. Plan and coordination of the patient's care discussed in the presence of nurse. GIGI
[2017-07-21 10:09] VITALS: BP 105/60; TEMP 97.4
[2017-07-21] MEDS ORDERED: NON-FORMULARY MEDICATION (Simvastatin [Simvastatin] 20 MG) PO SCH (21:00)
[2017-07-21] MEDS ORDERED: NON-FORMULARY MEDICATION (Melatonin [Melatonin] 5 MG) PO SCH (21:00)
[2017-07-22] MEDS ORDERED: ASPIRIN EC PO SCH (08:00)
--- NOTE | 2017-07-23 11:49 | PN ---
DATE OF SERVICE: 07/21/17 SUBJECTIVE: The patient's nausea has subsided. His appetite is good. He ate all his breakfast and his supper. He is up and about, demented but alert. He is oriented to person. The patient's is willing to take him back home. There is nothing that was found during this hospitalization. The problem is that the is unable to handle him at home and should be in the custodial. The patient's family wants him to be at home. CONDITION: Stable. The patient is seen with nurse practitioner, hospitalized on observation. TIME SPENT: More than 30 minutes. Plan and coordination of the patient's care discussed in the presence of nurse. GIGI
--- NOTE | 2017-07-23 11:50 | PN ---
CODING FOR BILLING 07/20/17 LEVEL 5 07/21/17 DISCHARGE (OBSERVATION) MTDDulce Maria
--- NOTE | 2017-09-23 14:26 | SSS ---
DATE OF SERVICE: 07/20/17 - ADMITTED; DISCHARGED: 07/21/17 REASON FOR ADMISSION: Abdominal pain. HISTORY OF PRESENT ILLNESS: This is a 77-year-old male with generalized abdominal pain described as cramping. Spouse reports noting frequent "belching". One episode of emesis, watery prior to ER evaluation. No diarrhea. REVIEW OF SYSTEMS: CONSTITUTIONAL: Positive for weakness and fatigue. No night sweats. No malaise , lethargy. No fever or chills. HEENT: Eyes: No visual changes. No eye pain. No eye discharge. ENT: No runny nose. No epistaxis. No sinus pain. No sore throat. No odynophagia. No ear pain. No congestion. RESPIRATORY: No cough, no congestion. No hemoptysis. No shortness of breath. CARDIOVASCULAR: No angina symptoms. No CHF symptoms. No atypical chest pain for CAD. No palpitations. No orthopnea. GASTROINTESTINAL: Positive for abdominal pain. No nausea or vomiting. No diarrhea or constipation. No hematemesis. No hematochezia. GENITOURINARY: No dysuria. No hematuria. No obstructive symptoms. No discharge. No pain. No significant abnormal bleeding. MUSCULOSKELETAL: Positive for leg weakness. No musculoskeletal pain. No joint swelling. NEUROLOGICAL: Oriented to person only, alert. No headache. No neck pain. No syncope. No seizures. No dizziness. PSYCHIATRIC: Not anxious. No depression. No suicidal thoughts. No homicidal thoughts. SKIN: No rash. No lesions. No wounds. ENDOCRINE: No unexplained weight loss. No weight gain. HEMATOLOGIC/LYMPHATIC: No anemia. No purpura. No petechiae. No prolonged or excessive bleeding. No palpable lymph nodes. PAST HISTORY: Dementia, progessing Anemia Anxiety Osteoarthritis Hiatal hernia Dyslipidemia Rheumatic fever by history Cholecystectomy Diverticulosis (by CT scan 06/05/17) GERD PERSONAL/FAMILY HISTORY/SOCIAL HISTORY: . Resides at home with spouse. Short admission period as resident at [facility]. Spouse brought patient back home. DME: Cane. No tobacco use. No ETOH. Requires assistance with ADLS. PHYSICAL EXAMINATION: GENERAL: The patient is a 77-year-old male, height 6'2"; weight 170# VITAL SIGNS: Admission vital signs: BP 111/57, pulse 57, respiratory rate 20, temperature 97.4, 02 100% sat on room air. HEENT: Head normocephalic, atraumatic. Eyes: No erythema. Extraocular muscles are intact. Pupils are equal, round and reactive to light and accommodation. Ears: No lesions. Nose appeared normal. Clear nasal drainage. Throat: No exudate or erythema. NECK: Supple. No JVD, no carotid bruit. No lymphadenopathy or thyromegaly. LUNGS: Decreased breath sounds, equal and clear to auscultation. Percussion note normal. Chest symmetrical. HEART: S1, S2, no S3. No murmur. Regular rate and rhythm. No cyanosis or clubbing. No ascites. Pulses: Dorsalis pedis and posterior tibial pulses +1 to +2 both sides. ABDOMEN: Soft. Nontender. No distention. Bowel sounds active. No CVA tenderness. No mass felt. : No lymphadenopathy. HOSPICE DIRECTOR: Oriented to person only, alert. EXTREMITIES: No edema. Full range of motion of all extremities, equal. SKIN: Warm and dry. Intact. Turgor - normal. LYMPHATIC: No palpable lymph nodes/no lymphedema. MUSCULOSKELETAL: Normal joints with no swelling. Muscle tone is normal. Old/present records reviewed Office records reviewed. ALLERGIES: PENICILLINS MEDICATIONS: K-Dur ASA Tylenol Calcium + Vitamin D Vitamin B12 Donepezil Lexapro Iron Loratadine Melatonin Namenda MVI Protonix Simvastatin LABS/EKG'S/X-RAY/ECHO/ABG: WBC 4.44, Hgb 10.6 - low, platelets 13.9, Hct 30.2 - low. Chemistries: Sodium 135, Chloride 104, BUN 8, K+ 4.2, c02 24, Creatinine 0.74. GFR 102, glucose 89. CT scan of abdomen and pelvis - small hiatal hernia. No bowel or gas pattern. No free air. Mild distal colon diverticulosis without diverticulitis. PROGRESS NOTES: The patient is able to eat well. No nausea or vomiting today. Labs have improved. Intake and output is adequate. He is able to be up and about with assist of one. Home today. Case Discussed with Attending Physician: Yes Case Discussed with Family: Yes DIAGNOSES: 1. ABDOMINAL PAIN 2. HYPONATREMIA 3. DEMENTIA 4. GENERALIZED WEAKNESS PLAN: 1. Code status DNR 2. Discharge home with spouse today. 3. Keep your appointment with Dr. Pearson 08/06/17 at 11 a.m. 4. Activity - get plenty of rest at home. Gradually increase your activity level according to your toleration. 5. Diet - Regular as tolerated. TIME SPENT: More than 70 minutes. MTDD
== END 2017-07-21 11:11 | disposition home or self-care (01) ==
LOC: ED 11:10 → MEDSURG B 13:01
PROVIDERS: ADMIT Internal Medicine; ATTEND Internal Medicine
DX: R10.9 Unspecified abdominal pain (principal); R14.2 Eructation; R11.0 Nausea; E87.1 Hypo-osmolality and hyponatremia; R53.1 Weakness; G30.1 Alzheimer's disease with late onset; F02.80 Dementia in other diseases classified elsewhere, unspecified severity, without behavioral disturbance, psychotic disturbance, mood disturbance, and anxiety; K21.9 Gastro-esophageal reflux disease without esophagitis; R27.0 Ataxia, unspecified; Z79.899 Other long term (current) drug therapy
CPT/HCPCS: 36415; 80053; 82150; 83690; 84145; 85025; 87040; 87081; 87502; 93005; 93010; 96360; 96361; 99217; 99220; 99284

== ENCOUNTER 2017-08-21 13:30 | Outpatient (CLI) | END 2017-08-21 13:31 | disposition home or self-care (01) | LOC: NONPT 13:30 | PROVIDERS: ATTEND Internal Medicine | DX: D64.9 Anemia, unspecified (principal); E87.1 Hypo-osmolality and hyponatremia; E86.0 Dehydration | CPT/HCPCS: 80053; 85025 ==

== ENCOUNTER 2018-02-20 13:17 | Emergency (ER) ==
[2018-02-20] MEDS ORDERED: SODIUM CHLORIDE 1,000 ML IV STA (13:30)
[2018-02-20 13:36] VITALS: BP 120/70; TEMP 97.3; BMI 21.2
--- NOTE | 2018-02-20 13:38 | ED.PDOC ---
General ED Provider: Dr. MIHAELA HERNANDEZ Chief Complaint: Altered Mental Status Stated Complaint: Patient is a 77 year old male who comes to the ER from the [facility] with complains by staff at the shelter of mental status changes. states that he has Severe dementia and has been declining over the past several months. He has been confused at times hitting nursing staff. Today his symtoms got worse with a low blood pressure in the 80s systolic. EMS got a normal blood pressure. His mouth was very dry hence unable to talk. Time Seen by Physician: 13:31 Information Source: Patient (limited ), Family, Shelter Exam Limitations: Dementia Primary Care Provider: VICKIE AWAN Nursing and Triage Documentation Reviewed and Agree: Yes Does patient meet sepsis criteria?: No System Inflammatory Response Syndrome: Not Applicable Sepsis Protocol: For patient's 13 years and over: Temp is 96.8 and below OR 101 and greater Pulse >90 BPM Resp >20/minute Acutely Altered Mental Status Are patient's symptoms suggestive of a new infection, such as: -Pneumonia -Skin, Soft Tissue -Endocarditis -UTI -Bone, Joint Infection -Implantable Device -Acute Abdominal Infection -Wound Infection -Meningitis -Blood Stream Catheter Infection -Unknown Review of Systems - Review Of Systems Constitutional: Denies: Loss of appetite Respiratory: Reports: Cough (occasional per ) Neurological: Reports: Anxiety, Cognitive dysfunction All Other Systems: Other (limited due to dementia) Past Medical History - Past Medical History Previously Healthy: Yes Endocrine: Reports: Dyslipidemia Cardiovascular: Reports: None Respiratory: Reports: None Hematological: Reports: None Gastrointestinal: Reports: GERD Genitourinary: Reports: None Neuro/Psych: Reports: None Musculoskeletal: Reports: None Cancer: Reports: None - Surgical History General Surgical History: Reports: None - Family History Family History: Reports: None - Social History Smoking Status: Never smoker Hx Substance Use: No Alcohol Screening: None Physical Exam - Physical Exam Appearance: Well-appearing Ill-appearing: None Pain Distress: None Eyes: JOHANN, Conjunctiva clear ENT: Dry mucosa Neck: Supple Respiratory: Airway patent, Breath sounds clear, Breath sounds equal, Respirations nonlabored Cardiovascular: RRR, Pulses normal, No rub, No murmur GI/: Soft, Nontender, No masses, Bowel sounds normal, No Organomegaly Musculoskeletal: Normal strength, ROM intact, No edema, No calf tenderness Skin: Warm, Dry, Normal color Neurological: Alert, Disoriented Psychiatric: Anxious Re-Evaluation - Re-Evaluation Time of Re-Evaluation: 16:20 Status: Improved (mental status back to basline. Blood pressure remained stable for as long as he was in the ER ) Vital Signs Stable: Yes Pain Level: denies Appearance: NAD Neuro: Other ([facility] dementia. communicates with as before. No aggrasive behaviors noted) Critical Care Note - Critical Care Note Total Time (mins): 0 Course - Course Hematology/Chemistry: 02/20/18 14:30 02/20/18 14:30 Orders, Labs, Meds: Lab Review 02/20/18 02/20/18 02/20/18 14:30 14:30 16:04 WBC 5.32 RBC 4.43 L Hgb 13.3 L Hct 38.4 L MCV 86.7 MCH 30.0 MCHC 34.6 RDW Coeff of [place] 12.7 Plt Count 199 Immature Gran % (Auto) 0.2 Neut % (Auto) 37.2 Lymph % (Auto) 44.0 [place] % (Auto) 10.5 H Eos % (Auto) 7.5 H Baso % (Auto) 0.6 Immature Gran # (Auto) 0.0 Neut # (Auto) 2.0 Lymph # (Auto) 2.3 [place] # (Auto) 0.6 Eos # (Auto) 0.4 Baso # (Auto) 0.0 Sodium 136.0 L Potassium 4.25 Chloride 102.4 Carbon Dioxide 24.0 Anion Gap 13.85 BUN 10.3 Creatinine 0.79 Estimated GFR (MDRD) 95.00 BUN/Creatinine Ratio 13.03 Glucose 108.5 H Calcium 8.49 Total Bilirubin 0.55 AST 27.2 ALT 19.8 Alkaline Phosphatase 51.3 L Troponin I < 0.012 Total Protein 6.56 Albumin 3.63 Globulin 2.93 Albumin/Globulin Ratio 1.23 Urine Color Yellow Urine Clarity Clear Urine pH 5.5 Ur Specific [place] 1.025 Urine Protein Negative Urine Glucose (UA) Negative Urine Ketones Negative Urine Blood Negative Urine Nitrite Negative Urine Bilirubin Negative Urine Urobilinogen 0.2 Ur Leukocyte Esterase Negative Orders Category Date Time Status EKG-(ED ONLY) Stat CARDIO 02/20/18 13:29 Completed ED IV/MEDIPORT/POWERPORT .ONCE EMERGENCY 02/20/18 13:27 Active Vital signs [ED VITAL SIGNS] .ONCE EMERGENCY 02/20/18 13:29 Active CBC W/ AUTO DIFF Stat LAB 02/20/18 14:30 Completed COMPREHENSIVE METABOLIC PANEL Stat LAB 02/20/18 14:30 Completed TROPONIN I Stat LAB 02/20/18 14:30 Completed URINALYSIS C & S IF INDICATED Stat LAB 02/20/18 16:04 Completed 0.9 % Sodium Chloride [Saline Flush] MEDS 02/20/18 13:30 Discontinued 1 syr IVF PRN PRN Sodium Chloride 0.9% [Sodium Chloride] 1,000 ml MEDS 02/20/18 13:30 Discontinued IV BOLUS CHEST, 1V AP ONLY Stat RADS 02/20/18 13:[address] HEAD W/O CONTRAST Stat RADS 02/20/18 13:29 Completed Medications Discontinued Medications Generic Name Dose Route Start Last Admin Trade Name Freq PRN Reason Stop Dose Admin Sodium Chloride 1,000 mls @ 1,000 mls/hr 02/20/18 13:30 02/20/18 17:12 Sodium Chloride IV 02/20/18 14:29 Not Given BOLUS STA Sodium Chloride 1 syr 02/20/18 13:30 Saline Flush IVF PRN PRN To flush IV Vital Signs: Temp Pulse Resp BP Pulse Ox 02/20/18 13:19 97.3 F L 61 20 120/70 98 Departure - Departure Time of Disposition: 16:23 Disposition: TRANSFER SNF Discharge Problem: Dementia Qualifiers: Dementia type: Alzheimer's disease Alzheimer's disease onset: late-onset Dementia behavioral disturbance: with behavioral disturbance Qualified Code(s): G30.1 - Alzheimer's disease with late onset Instructions: Dementia (ED) Condition: Stable Pt referred to PMD for follow-up: Yes IPMP verified?: No Additional Instructions: Take medications as prescribed Follow up PCP in 3 days. Allergies/Adverse Reactions: Allergies Penicillins Adverse Reaction (Verified 02/20/18 13:43) Home Medications: Ambulatory Orders Calcium Carb/Vitamin D3/Vit K1 [Calcium + D Soft Chewable Tab] 1 each PO DAILY 11/29/13 Aspirin [Adult Low Dose Aspirin EC] 81 mg PO DAILY 01/20/17 Memantine HCl [Namenda] 10 mg PO BID 01/20/17 Acetaminophen 650 mg PO Q4HR PRN 06/24/17 Loratadine 10 mg PO DAILY 07/20/17 Melatonin 5 mg PO BEDTIME 07/20/17 Pantoprazole Sodium 40 mg PO BID 07/20/17 Alprazolam [Xanax] 0.5 mg PO BEDTIME 02/20/18 Escitalopram Oxalate [Lexapro] 10 mg PO BEDTIME 02/20/18 Guaifenesin 200 mg PO Q4HR PRN 02/20/18 Loperamide HCl [Loperamide] 2 mg PO TID PRN 02/20/18 Quetiapine Fumarate [Seroquel] 12.5 mg PO BID 02/20/18 Tramadol HCl 50 mg PO BID 02/20/18
--- NOTE | 2018-02-20 14:19 | CT ---
EXAM: CT scan of the head without contrast HISTORY: Mental status change TECHNIQUE: Helical imaging of the head was performed without contrast. 5 mm thin axial images and c oronal and sagittal images were provided for interpretation. FINDINGS: The lateral ventricles and cortical sulci are prominent from atrophy. No acute hemorrhage s are seen. There is no mass effect. The basal cisterns are patent. The paranasal sinuses and mast oid air cells are clear. The calvarium appears normal. IMPRESSION: No acute intracranial abnormalities are seen. Moderate cerebral atrophy.
--- NOTE | 2018-02-21 06:43 | DI ---
EXAMINATION: AP chest radiograph. HISTORY: Mental status changes COMPARISON: 06/29/2017 FINDINGS: No focal consolidation, pleural effusion or pneumothorax is identified. A few small calcified granul omas are seen. The cardiomediastinal silhouette is within normal limits. There is calcified atherosclerotic plaque o f the aorta. IMPRESSION: No acute cardiopulmonary findings.
== END 2018-02-20 17:17 ==
LOC: ED 13:17
DX: G30.1 Alzheimer's disease with late onset (principal); R05 Cough; Z79.899 Other long term (current) drug therapy; R41.82 Altered mental status, unspecified; R03.1 Nonspecific low blood-pressure reading
CPT/HCPCS: 36415; 80053; 81001; 84484; 85025; 93005; 93010; 99283

== ENCOUNTER 2018-04-04 10:13 | Emergency (ER) | payer OTHER ==
[2018-04-04 10:32] VITALS: BP 121/68; TEMP 97.3; BMI 20.9
--- NOTE | 2018-04-04 11:19 | ED.PDOC ---
General ED Provider: Dr. MAYRA SALCEDO Chief Complaint: Cough Stated Complaint: Cough, congestion and weakness/Marci Paola Time Seen by Physician: 10:25 Mode of Arrival: Ambulance Information Source: Patient, Retirement, EMT Exam Limitations: Clinical condition Primary Care Provider: VICKIE AWAN Seen Within Last 72 Hours for Same Complaint By: ED Nursing and Triage Documentation Reviewed and Agree: Yes Does patient meet sepsis criteria?: No System Inflammatory Response Syndrome: Not Applicable Sepsis Protocol: For patient's 13 years and over: Temp is 96.8 and below OR 101 and greater Pulse >90 BPM Resp >20/minute Acutely Altered Mental Status Are patient's symptoms suggestive of a new infection, such as: -Pneumonia -Skin, Soft Tissue -Endocarditis -UTI -Bone, Joint Infection -Implantable Device -Acute Abdominal Infection -Wound Infection -Meningitis -Blood Stream Catheter Infection -Unknown Respiratory Complaint Exam - Respiratory Complaint/Exam Symptoms Are: Still present Timing: Intermittent Initial Severity: Moderate Current Severity: Moderate Location: Chest Character: Reports: Non-productive cough Aggravating: Reports: None Alleviating: Reports: None Associated Signs and Symptoms: Reports: Dyspnea, Pleuritic chest pain, Nasal congestion, Decreased oral intake Related History: Reports: Similar episode History of Healthcare-Acquired Pneumonia: No Pulmonary Embolism Risk Factors: None Cardiac Risk Factors: Reports: Elevated lipids Pseudomonas Risk Factors: Reports: None Tuberculosis Risk Factors: Reports: None Status Asthmaticus Risk Factors: Reports: None Home Oxygen Use: No Respiratory Distress: None Inadequate Respiratory Effort: No Dysphagia Present: Yes Stridor Present: No JVD Present: No Accessory Muscle Use: No Diminished Breath Sounds: Yes Sinus Tenderness: None Grunting Respirations: No Kussmaul Respirations: No Review of Systems - Review Of Systems Constitutional: Reports: Weakness Eyes: Reports: No symptoms Ears, Nose, Mouth, Throat: Reports: No symptoms Respiratory: Reports: No symptoms Cardiac: Reports: No symptoms GI: Reports: No symptoms, Poor fluid intake : Reports: No symptoms Musculoskeletal: Reports: No symptoms Skin: Reports: No symptoms Neurological: Reports: No symptoms Endocrine: Reports: No symptoms Hematologic/Lymphatic: Reports: No symptoms All Other Systems: Reviewed and Negative Past Medical History - Past Medical History Previously Healthy: Yes Endocrine: Reports: Dyslipidemia Cardiovascular: Reports: None Respiratory: Reports: None Hematological: Reports: None Gastrointestinal: Reports: GERD Genitourinary: Reports: None Neuro/Psych: Reports: None Musculoskeletal: Reports: None Cancer: Reports: None - Surgical History General Surgical History: Reports: None - Family History Family History: Reports: None - Social History Smoking Status: Never smoker Hx Substance Use: No Alcohol Screening: None Physical Exam - Physical Exam Appearance: Ill-appearing Ill-appearing: Mild Pain Distress: None Eyes: JOHANN, EOMI, Conjunctiva clear ENT: Ears normal, Nose normal, Oropharynx normal Neck: Supple Respiratory: Airway patent, Breath sounds clear, Respirations nonlabored Cardiovascular: RRR, Pulses normal, No rub, No murmur GI/: Soft, Nontender, No masses, Bowel sounds normal, No Organomegaly Musculoskeletal: Normal strength, ROM intact, No edema, No calf tenderness, Limited ROM Skin: Warm, Dry Neurological: Motor intact (but generalized paresis), Cranial nerves intact, Alert to verbal, Alert to pain (affect flattened) Critical Care Note - Critical Care Note Total Time (mins): 60 Course - Course Hematology/Chemistry: 04/04/18 10:30 04/04/18 10:30 Orders, Labs, Meds: Lab Review 04/04/18 04/04/18 10:30 10:30 WBC 6.03 RBC 4.39 L Hgb 13.2 L Hct 37.9 L MCV 86.3 MCH 30.1 MCHC 34.8 RDW Coeff of [place] 13.7 Plt Count 223 Immature Gran % (Auto) 0.2 Neut % (Auto) 42.8 Lymph % (Auto) 39.1 [place] % (Auto) 11.4 H Eos % (Auto) 6.0 Baso % (Auto) 0.5 Immature Gran # (Auto) 0.0 Neut # (Auto) 2.6 Lymph # (Auto) 2.4 [place] # (Auto) 0.7 Eos # (Auto) 0.4 Baso # (Auto) 0.0 Sodium 138.2 Potassium 3.53 Chloride 101.9 Carbon Dioxide 30.9 H Anion Gap 8.93 BUN 13.1 Creatinine 0.87 Estimated GFR (MDRD) 85.00 BUN/Creatinine Ratio 15.05 Glucose 98.5 Calcium 8.98 Total Bilirubin 0.54 AST 25.7 ALT 22.1 Alkaline Phosphatase 74.5 Total Creatine Kinase 38.1 L Total Protein 7.14 Albumin 4.14 Globulin 3.00 Albumin/Globulin Ratio 1.38 Orders Category Date Time Status EKG-(ED ONLY) Stat CARDIO 04/04/18 12:35 Completed IV [ED IV/MEDIPORT/POWERPORT] .ONCE EMERGENCY 04/04/18 12:35 Active BLOOD CULTURE (ED ONLY) Stat LAB 04/04/18 12:50 Received CBC W/ AUTO DIFF Stat LAB 04/04/18 10:30 Completed CMP [COMPREHENSIVE METABOLIC PANEL] Stat LAB 04/04/18 10:30 Completed CPK [CREATINE KINASE] Stat LAB 04/04/18 10:30 Completed UA [URINALYSIS C & S IF INDICATED] Stat LAB 04/04/18 12:35 Uncollected 0.9 % Sodium Chloride [Saline Flush] MEDS 04/04/18 12:31 Ordered 1 syr IVF PRN PRN Sodium Chloride 0.9% [Sodium Chloride] 1,000 ml MEDS 04/04/18 13:11 Discontinued IV BOLUS CHEST, 1V AP ONLY Stat RADS 04/04/18 12:36 Completed Medications Generic Name Dose Route Start Last Admin Trade Name Freq PRN Reason Stop Dose Admin Sodium Chloride 1 syr 04/04/18 12:31 04/04/18 14:02 Saline Flush IVF 1 syr PRN PRN Administration To flush IV Discontinued Medications Generic Name Dose Route Start Last Admin Trade Name Freq PRN Reason Stop Dose Admin Sodium Chloride 1,000 mls @ 500 mls/hr 04/04/18 13:11 04/04/18 14:01 Sodium Chloride IV 04/04/18 15:10 500 mls/hr BOLUS STA Administration Vital Signs: Temp Pulse Resp BP Pulse Ox 04/04/18 10:23 97.3 F L 62 20 121/68 93 L Departure - Departure Time of Disposition: 15:15 Disposition: TRANSFER SNF Discharge Problem: Chronic cough, GERD (gastroesophageal reflux disease), Dehydration symptoms Instructions: Dehydration (ED), Dextromethorphan (By mouth) Condition: Good Pt referred to PMD for follow-up: Yes (Dr Awan) IPMP verified?: No Additional Instructions: Discussed with DR Awan, Recommends transfer back to [place] Robitussin DM for coughing prn Poss swallowing study Recommended Prescriptions: Guaifenesin/Dextromethorphan [Guaifenesin Dm Syrup] 10 ml PO ONCE #8 oz Allergies/Adverse Reactions: Allergies Penicillins Adverse Reaction (Verified 04/04/18 10:47) Home Medications: Ambulatory Orders Aspirin [Adult Low Dose Aspirin EC] 81 mg PO DAILY 01/20/17 Memantine HCl [Namenda] 10 mg PO BID 01/20/17 Loratadine 10 mg PO DAILY 07/20/17 Melatonin 6 mg PO BEDTIME 07/20/17 Pantoprazole Sodium 40 mg PO BID 07/20/17 Alprazolam [Xanax] 0.5 mg PO BEDTIME 02/20/18 Escitalopram Oxalate [Lexapro] 10 mg PO BEDTIME 02/20/18 Guaifenesin 200 mg PO Q4HR PRN 02/20/18 Loperamide HCl [Loperamide] 2 mg PO TID PRN 02/20/18 Quetiapine Fumarate [Seroquel] 12.5 mg PO BID 02/20/18 Tramadol HCl 50 mg PO BID 02/20/18 Calcium Carbonate [Calcium] 500 mg PO DAILY 04/04/18 Guaifenesin/Dextromethorphan [Guaifenesin Dm Syrup] 10 ml PO ONCE #8 oz Transfer Form Completed: Yes Disposition Discussed With: Patient, Family, Other
[2018-04-04] MEDS ORDERED: SODIUM CHLORIDE 1,000 ML IV STA (13:11)
--- NOTE | 2018-04-04 13:43 | DI ---
EXAMINATION: AP chest radiograph. HISTORY: Cough COMPARISON: 02/20/2018 FINDINGS: No focal consolidation, pleural effusion or pneumothorax is identified. The cardiomediastinal silhouette is within normal limits. There is mild dextrocurvature of the thoracic spine. IMPRESSION: No acute cardiopulmonary findings.
== END 2018-04-04 18:20 ==
LOC: ED 10:13
DX: R05 Cough (principal); K21.9 Gastro-esophageal reflux disease without esophagitis; E86.0 Dehydration; R53.1 Weakness; E78.5 Hyperlipidemia, unspecified; Z79.899 Other long term (current) drug therapy; R06.2 Wheezing; I95.9 Hypotension, unspecified; F03.90 Unspecified dementia, unspecified severity, without behavioral disturbance, psychotic disturbance, mood disturbance, and anxiety; D64.9 Anemia, unspecified
CPT/HCPCS: 36415; 80053; 82550; 85025; 87040; 87070; 87077; 87186; 93005; 93010; 96360; 96361; 99283

== ENCOUNTER 2018-04-23 12:41 | Outpatient (CLI) | payer OTHER | END 2018-04-23 12:48 | LOC: AMBL 12:41 | PROVIDERS: ATTEND Internal Medicine | DX: R13.10 Dysphagia, unspecified (principal); J69.0 Pneumonitis due to inhalation of food and vomit ==